=== PATIENT | male | born 1960 | race Caucasian/White ===

== ENCOUNTER 2018-04-10 17:39 | Observation (INO) | payer OTHER ==
[~2018-04-10] VITALS: Ht 162.6 cm; Wt 68.0 kg
[~2018-04-10 17:39] MED LIST: ACETAMINOPHEN325 M1 PO; ACULAR LS5 ML OPHTHALMIC; ADVANCED EYE H1 EAC1 PO; ASPIR 8181 MG PO; ASPIRIN325 PO; AUGMENTIN 875875 MG PO; CARISOPRODOL 3350 MG PO; CIPROFLOXACIN500 M1 PO; CLONAZEPAM 0.50.5 M1 PO; DICLOFENAC SODI75 MG PO; FISH OIL 1,001000 M2 PO; FLEXERIL PO; HYDROCODONE-AP1 EA11; HYDROCODONE-AP1 EAC6 PO; IBUPROFEN200 M2; KEFLEX500 MG PO; LOVASTATIN 20 M20 MG PO; MAGOX 400400 MG PO; MOBIC7.5 M1 PO; MOBIC7.5 MG PO; NAPROSYN500 MG PO; NOHOMEMEDICATIONS; NORCO 5-325 TA1 EACH PO; OMEPRAZOLE20 M2 PO; ONDANSETRON HCL4 M2 PO; PAXIL10 MG PO; PAXIL40 MG PO; POTASSIUM20 PO; PREDNISONE 20 M20 MG PO; PROSCAR 5MG TABL5 M1 PO; PROTONIX40 M2 PO; PROZAC 20 MG20 MG; RAPAFLO8 MG PO; REQUIP0.5 MG PO; SENTRY TABLET1 EACH PO; SEROQUEL 50 MG50 MG PO; SERTRALINE HCL100 MG; TESSALON PERLE100 MG PO; TOPAMAX50 MG PO; TRAMADOL 50 MG50 MG PO; ULTRACET TABLET1 TAB PO; ZOFRAN ODT4 MG PO
[2018-04-10 17:48] VITALS: BP 110/63
[2018-04-10] MEDS ORDERED: CRESTOR40 MG PO (17:55)
[2018-04-10] MEDS ORDERED: ASPIR 8181 MG PO (17:55)
[2018-04-10] MEDS ORDERED: AMANTADINE100 M1 PO (17:56)
[2018-04-10 18:39] LABS: ABSOLUTE LYMPHOCYTES 1.7 thou/uL (0.8-5.3); ABSOLUTE MONOCYTES 0.6 thou/uL (0.0-1.2); BASOPHILS 0.4 %; EOSINOPHILS 0.9 %; HEMATOCRIT 42.1 % (42.0-52.0); LYMPHOCYTES 31.1 %; MCHC 33.3 g/dL (28.0-37.0); MCV 93.1 fL (80.0-100.0); MONOCYTES 11.7 %; MPV 7.9 fl. (7.2-11.1); NUCLEATED RBCS 0 /100WBC; PLATELET COUNT* 199 thou/uL (150-400); POLYS 55.9 %; RBC 4.53 mil/uL (4.50-6.00); RDW-CV 13.5 % (10.5-14.5); WBC 5.4 thou/uL (4.0-11.0)
[2018-04-10 18:49] LABS: ANION GAP 12 mmol/L (7-16); BUN 10 mg/dL (7-18); CALCIUM 8.5 mg/dL (8.5-10.1); CHLORIDE 106 mmol/L (98-107); CO2 21 mmol/L (21-32); CREATININE 0.8 mg/dL (0.6-1.3); GLUCOSE 108 mg/dL (70-99); POTASSIUM 3.5 mmol/L (3.5-5.1); SODIUM 139 mmol/L (136-145)
[2018-04-10 19:00] LABS: ALBUMIN 3.5 g/dL (3.4-5.0); ALKALINE PHOSPHATASE 68 U/L (46-116); NT-PRO BRAIN NAT PEPTIDE 25 pg/mL (<300); SGOT 18 U/L (15-37); SGPT 41 U/L (30-65); TOTAL BILIRUBIN 0.2 mg/dL (<0.1-1.0); TROPONIN-I LEVEL <0.06 ng/mL (<0.06)
[2018-04-10 20:34] LABS: URINE BILIRUBIN NEGATIVE (Negative); URINE BLOOD TRACE (Negative); URINE CLARITY CLEAR; URINE COLOR YELLOW; URINE GLUCOSE-RANDOM NEGATIVE (Negative); URINE KETONES NEGATIVE (Negative); URINE LEUKOCYTES-REFLEX NEGATIVE (Negative); URINE NITRITE-REFLEX NEGATIVE (Negative); URINE PROTEIN NEGATIVE (Negative); URINE SPECIFIC GRAVITY <= 1.005 (1.005-1.030); URINE UROBILINOGEN 0.2 E.U./dl (0.2-1.0)
[2018-04-10 22:44] VITALS: BP 96/54
[2018-04-11 00:08] VITALS: BP 111/57
[2018-04-11 04:00] VITALS: BP 97/57
[2018-04-11 08:00] VITALS: BP 99/55
[2018-04-11] MEDS ORDERED: ADULT ASPIRIN81 MG PO (10:57)
[2018-04-11 12:00] VITALS: BP 100/59; BP 84/47
--- NOTE | 2018-04-11 13:46 | EKG ---
[place] [address] ELECTROCARDIOGRAM REPORT Name: ANA CRISTINA MC Room: [address] M.R.#: [id number] Admission: 04/10/18 Attend Phys: Cassandra Tolliver Discharge: Date of : 58 Report #: [id number] THIS REPORT FOR: //name// [facility] ED Test Date: 2018-04-10 Test Time: 18:05:24 Pat Name: ANA CRISTINA MC Department: Room: [facility] Gender: M Firearms Specialist: GIOVANI : 1960 Requested By: Emely Linares Order Number: [id number] MD: Ray Shay Measurements Intervals [place] Rate: 56 P: 40 NM: 175 QRS: 57 QRSD: 90 T: 28 QT: 405 QTc: 391 Interpretive Statements Sinus rhythm Compared to ECG 04/23/2017 01:14:05 No significant changes Electronically Signed On 04-11-2018 13:46:37 LEGAL MANAGER by Ray Shay [email or web address] <ELECTRONICALLY SIGNED> By: Ray Shay MD, [facility] 04/11/18 1346 1805 04 Ray Shay MD, FAC /EPI
[2018-04-11 16:00] VITALS: BP 84/54
[2018-04-11 20:00] VITALS: BP 108/73
[2018-04-12] VITALS (7 sets, daily range): BP systolic 91–103; BP diastolic 48–60
--- NOTE | 2018-04-12 07:29 | 2DMMODE ---
[place] [address] 2 D/M-MODE ECHOCARDIOGRAM Name: ANA CRISTINA MC Room: [address] Ava Flowers#: [id number] Admission: 04/10/18 Attend Phys: Matilde Villar Discharge: Date of : 58 Date of Service: 04/12/18 0729 Report #: [id number] THIS REPORT FOR: //name// APPROVED REPORT Study performed: 04/11/2018 17:14:54 EXAM: Comprehensive 2D, Doppler, and color-flow Echocardiogram BSA: 1.73 HR: 53 bpm BP: 99/55 mmHg Other Information Study Quality: Fair Technically limited study due to . Indications Hypotension Arrhythmia 2D Dimensions IVSd: 9.19 (7-11mm) LVOT Diam: 21.87 (18-24mm) LVDd: 43.17 mm PWd: 9.19 (7-11mm) Ascending Ao: 29.22 (22-36mm) LVDs: 31.07 (25-40mm) Aortic Root: 27.27 mm Volumes Left Atrial Volume (Systole) LA ESV Index: 32.20 mL/m2 Aortic Valve AoV Peak Charlie.: 0.85 m/s AO Peak Gr.: 2.90 mmHg LVOT Max P.35 mmHg AO Mean Gr.: 1.65 mmHg LVOT Mean P.66 mmHg LVOT Max V: 0.58 m/s AO V2 VTI: 17.60 cm LVOT Mean V: 0.38 m/s BRANDON (VTI): 2.84 cm2 LVOT V1 VTI: 13.29 cm Mitral Valve E/A Ratio: 1.68 MV Decel. Time: 196.83 ms MV E Max Charlie.: 0.66 m/[place] [address] 2 D/M-MODE ECHOCARDIOGRAM Name: ANA CRISTINA MC Room: [address]R.#: [id number] Admission: 04/10/18 Attend Phys: Matilde Villar Discharge: Date of : 58 Date of Service: 04/12/18 0729 Report #: [id number] MV PHT: 57.08 ms MVA (PHT): 3.85 cm2 TDI E/Lateral E': 5.08 E/Medial E': 8.25 Medial E' Charlie.: 0.08 m/s Lateral E' Charlie.: 0.13 m/s Pulmonary Valve PV Peak Charlie.: 0.78 m/s PV Peak Gr.: 2.43 mmHg Tricuspid Valve RAP Estimate: 5.00 mmHg TR Peak Gr.: 17.07 mmHg RVSP: 22.07 mmHg PA Pressure: 22.07 mmHg Left Ventricle The left ventricle is normal size. There is normal left ventricular wall thickness. Left ventricular systolic function is normal. LVEF is 50-55%. The left ventricular diastolic function is normal. Right Ventricle Right ventricle is dilated. The right ventricular systolic function is normal. Atria The left atrium size is normal. The right atrium size is normal. Aortic Valve The Aortic valve is sclerotic. No aortic regurgitation is present. There is no aortic valvular stenosis. Mitral Valve The mitral valve is normal in structure. Trace mitral regurgitation. No evidence of mitral valve stenosis. Tricuspid Valve The tricuspid valve is normal in structure. Trace to mild tricuspid regurgitation. Pulmonic Valve The pulmonary valve is normal in structure. Trace pulmonic regurgitation. [place] [address] 2 D/M-MODE ECHOCARDIOGRAM Name: ANA CRISTINA MC Room: [address] Ava Flowers#: [id number] Admission: 04/10/18 Attend Phys: Matilde Villar Discharge: Date of : 58 Date of Service: 04/12/18 0729 Report #: [id number] The aortic root is normal in size. IVC is normal in size and collapses >50% with inspiration. Pericardium There is no pericardial effusion. <Conclusion> The left ventricle is normal size. There is normal left ventricular wall thickness. Left ventricular systolic function is normal. LVEF is 50-55%. The left ventricular diastolic function is normal. The Aortic valve is sclerotic. Trace mitral regurgitation. Trace to mild tricuspid regurgitation. IVC is normal in size and collapses >50% with inspiration. Right ventricle is dilated. <ELECTRONICALLY SIGNED> By: Shen Charles MD, FACC 04/12/18728 8 8 Shen Charles MD, FACC /INF
== END 2018-04-12 12:20 | disposition home or self-care (01) ==
LOC: M.ERS 17:39 → M.TBA-ER 21:08 → M.3W 21:08
PROVIDERS: Nurse Practitioner Family; ADMIT Internal Medicine
DX: T42.8X5A Adverse effect of antiparkinsonism drugs and other central muscle-tone depressants, initial encounter (principal); I95.1 Orthostatic hypotension; R00.1 Bradycardia, unspecified; N50.812 Left testicular pain; I86.1 Scrotal varices; G31.83 Neurocognitive disorder with Lewy bodies; G20 Parkinson's disease; R31.29 Other microscopic hematuria; I87.8 Other specified disorders of veins; H35.30 Unspecified macular degeneration; R51 Headache; R19.7 Diarrhea, unspecified; N50.3 Cyst of epididymis; N43.3 Hydrocele, unspecified; Y92.89 Other specified places as the place of occurrence of the external cause; Z87.891 Personal history of nicotine dependence; Z79.82 Long term (current) use of aspirin; Z79.899 Other long term (current) drug therapy

== ENCOUNTER 2018-05-05 20:35 | Emergency (ER) | payer OTHER ==
[~2018-05-05] VITALS: Ht 162.6 cm; Wt 65.8 kg
[~2018-05-05 20:35] MED LIST changes: +ADULT ASPIRIN81 MG PO; +AMANTADINE100 M1 PO; +CRESTOR40 MG PO
[2018-05-05 20:56] LABS: URINE BILIRUBIN NEGATIVE (Negative); URINE BLOOD NEGATIVE (Negative); URINE CLARITY CLEAR; URINE COLOR YELLOW; URINE GLUCOSE-RANDOM NEGATIVE (Negative); URINE KETONES NEGATIVE (Negative); URINE LEUKOCYTES-REFLEX NEGATIVE (Negative); URINE NITRITE-REFLEX NEGATIVE (Negative); URINE PROTEIN NEGATIVE (Negative); URINE UROBILINOGEN 0.2 E.U./dl (0.2-1.0)
[2018-05-05 21:06] LABS: ABSOLUTE EOSINOPHILS 0.1 thou/uL (0.0-0.7); ABSOLUTE LYMPHOCYTES 2.1 thou/uL (0.8-5.3); ABSOLUTE MONOCYTES 0.6 thou/uL (0.0-1.2); ABSOLUTE NEUTROPHILS 2.9 thou/uL (1.6-8.1); BASOPHILS 0.8 %; EOSINOPHILS 1.5 %; HEMOGLOBIN 14.2 gm/dL (14.0-18.0); LYMPHOCYTES 36.7 %; MCH 31.3 pg (26.0-34.0); MCHC 33.9 g/dL (28.0-37.0); MCV 92.4 fL (80.0-100.0); MONOCYTES 10.5 %; MPV 7.5 fl. (7.2-11.1); NUCLEATED RBCS 0 /100WBC; PLATELET COUNT* 203 thou/uL (150-400); POLYS 50.5 %; RBC 4.54 mil/uL (4.50-6.00); RDW-CV 13.5 % (10.5-14.5); WBC 5.8 thou/uL (4.0-11.0)
[2018-05-05 21:14] LABS: CALCIUM 8.8 mg/dL (8.5-10.1); CREATININE 0.9 mg/dL (0.6-1.3); POTASSIUM 3.5 mmol/L (3.5-5.1)
[2018-05-05 21:18] LABS: ALBUMIN 3.7 g/dL (3.4-5.0); TOTAL BILIRUBIN 0.2 mg/dL (<0.1-1.0); TOTAL PROTEIN 7.1 g/dL (6.4-8.2)
[2018-05-05] MEDS ORDERED: BENTYL 20 MG TA20 M1 PO (22:38)
[2018-05-05 23:00] VITALS: BP 92/56
== END 2018-05-05 23:01 | disposition home or self-care (01) ==
LOC: M.ERS 20:35
PROVIDERS: Nurse Practitioner Family
DX: R10.33 Periumbilical pain (principal); G20 Parkinson's disease; I95.9 Hypotension, unspecified; F03.90 Unspecified dementia, unspecified severity, without behavioral disturbance, psychotic disturbance, mood disturbance, and anxiety; Z88.6 Allergy status to analgesic agent

== ENCOUNTER 2018-05-07 12:03 | Emergency (ER) | payer OTHER ==
[~2018-05-07] VITALS: Ht 162.6 cm; Wt 68.0 kg
[~2018-05-07 12:03] MED LIST changes: +BENTYL 20 MG TA20 M1 PO
[2018-05-07] MEDS ORDERED: ZANTAC 150MG T150 MG PO (12:25)
[2018-05-07] MEDS ORDERED: PAXIL10 MG PO (12:26)
[2018-05-07 12:38] LABS: ABSOLUTE LYMPHOCYTES 1.7 thou/uL (0.8-5.3); ABSOLUTE MONOCYTES 0.7 thou/uL (0.0-1.2); ABSOLUTE NEUTROPHILS 3.7 thou/uL (1.6-8.1); BASOPHILS 0.5 %; EOSINOPHILS 0.3 %; HEMATOCRIT 40.8 % (42.0-52.0); HEMOGLOBIN 13.7 gm/dL (14.0-18.0); LYMPHOCYTES 28.1 %; MCH 31.1 pg (26.0-34.0); MCHC 33.7 g/dL (28.0-37.0); MCV 92.3 fL (80.0-100.0); MONOCYTES 10.9 %; MPV 7.8 fl. (7.2-11.1); NUCLEATED RBCS 0 /100WBC; PLATELET COUNT* 197 thou/uL (150-400); POLYS 60.2 %; RBC 4.42 mil/uL (4.50-6.00); RDW-CV 13.2 % (10.5-14.5); WBC 6.1 thou/uL (4.0-11.0)
[2018-05-07 12:51] LABS: CALCIUM 8.8 mg/dL (8.5-10.1); CREATININE 0.8 mg/dL (0.6-1.3); POTASSIUM 4.1 mmol/L (3.5-5.1)
[2018-05-07 13:00] LABS: ALBUMIN 3.7 g/dL (3.4-5.0); TOTAL BILIRUBIN 0.2 mg/dL (<0.1-1.0); TOTAL PROTEIN 7.1 g/dL (6.4-8.2)
[2018-05-07 13:59] LABS: URINE BILIRUBIN NEGATIVE (Negative); URINE BLOOD NEGATIVE (Negative); URINE CLARITY CLEAR; URINE COLOR YELLOW; URINE GLUCOSE-RANDOM NEGATIVE (Negative); URINE KETONES NEGATIVE (Negative); URINE LEUKOCYTES-REFLEX NEGATIVE (Negative); URINE NITRITE-REFLEX NEGATIVE (Negative); URINE PROTEIN NEGATIVE (Negative); URINE UROBILINOGEN 0.2 E.U./dl (0.2-1.0)
[2018-05-07] MEDS ORDERED: PHENERGAN 25 MG25 M1 PO (15:31)
[2018-05-07 16:03] VITALS: BP 92/52
--- NOTE | 2018-05-07 16:27 | EKG ---
[place] [address] ELECTROCARDIOGRAM REPORT Name: ANA CRISTINA MC JR Room: [facility]#: [id number] Admission: 05/07/18 Attend Phys: Discharge: 05/07/18 Date of : 58 Report #: [id number] THIS REPORT FOR: //name// ED Test Date: 2018-05-07 Test Time: 12:11:36 Pat Name: ANA CRISTNIA MC Department: Room: Gender: M Nursing Unit Manager: Fani BENNETT : 1960 Requested By: Marilynn Mercer Order Number: [id number] MD: Shen Charles Measurements Intervals [place] Rate: 58 P: 37 AL: 156 QRS: 58 QRSD: 91 T: 48 QT: 394 QTc: 387 Interpretive Statements Sinus rhythm Minimal ST elevation, inferior leads Compared to ECG 04/10/2018 18:05:24 ST (T wave) deviation now present Electronically Signed On 05-07-2018 16:27:18 DAIRY FEED SALES CONSULTANT by Shen Charles [email or web address] <ELECTRONICALLY SIGNED> By: Shen Charles MD, [facility] 05/07/18 1627 1211 10 Shen Charles MD, FACC /EPI
== END 2018-05-07 16:04 | disposition home or self-care (01) ==
LOC: M.ERS 12:03
PROVIDERS: Personal Emergency Response Attendant
DX: I95.9 Hypotension, unspecified (principal); R10.30 Lower abdominal pain, unspecified; G20 Parkinson's disease; F03.90 Unspecified dementia, unspecified severity, without behavioral disturbance, psychotic disturbance, mood disturbance, and anxiety; Z88.6 Allergy status to analgesic agent

== ENCOUNTER 2018-05-17 21:18 | Inpatient (IN) | payer OTHER ==
[~2018-05-17] VITALS: Ht 162.6 cm; Wt 69.9 kg
[~2018-05-17 21:18] MED LIST changes: +CLONAZEPAM 1 MG1 M1 PO; +PHENERGAN 25 MG25 M1 PO; +ZANTAC 150MG T150 MG PO
[2018-05-17 21:30] VITALS: BP 95/50
--- NOTE | 2018-05-17 21:54 | NUR ---
PT PRESENTS TO ED REPORTING LOW BLOOD PRESSURE AND HEADACHE.
[2018-05-17 22:35] LABS: BE -0.7 mmol/L (-2 to +3); PCO2 30.8 mmHg (35.0-45.0); PO2 115.6 mmHg (75.0-100.0); pH 7.472 (7.340-7.450)
[2018-05-17 22:52] LABS: ABSOLUTE LYMPHOCYTES 1.8 thou/uL (0.8-5.3); ABSOLUTE MONOCYTES 1.1 thou/uL (0.0-1.2); ABSOLUTE NEUTROPHILS 14.6 thou/uL (1.6-8.1); BASOPHILS 0.2 %; EOSINOPHILS 0.2 %; HEMATOCRIT 36.6 % (42.0-52.0); HEMOGLOBIN 12.4 gm/dL (14.0-18.0); LYMPHOCYTES 10.3 %; MCH 31.2 pg (26.0-34.0); MCHC 33.9 g/dL (28.0-37.0); MONOCYTES 6.2 %; MPV 7.8 fl. (7.2-11.1); NUCLEATED RBCS 0 /100WBC; PLATELET COUNT* 166 thou/uL (150-400); POLYS 83.1 %; RBC 3.98 mil/uL (4.50-6.00); WBC 17.5 thou/uL (4.0-11.0)
[2018-05-17 23:06] LABS: CALCIUM 8.4 mg/dL (8.5-10.1); POTASSIUM 3.1 mmol/L (3.5-5.1)
[2018-05-17 23:10] LABS: ALBUMIN 3.1 g/dL (3.4-5.0); MAGNESIUM 1.5 mg/dL (1.8-2.4); TOTAL BILIRUBIN 0.4 mg/dL (<0.1-1.0); TOTAL PROTEIN 6.5 g/dL (6.4-8.2)
--- NOTE | 2018-05-17 23:42 | NUR ---
PT REPORTS HEADACHE RELIEVED AFTER RECIEVING IV TORADOL, FENTANYL AND ZOFRAN.
[2018-05-18] VITALS (10 sets, daily range): BP systolic 77–125; BP diastolic 34–79
--- NOTE | 2018-05-18 00:08 | NUR ---
PT GIVEN 4 BABY ASPIRIN AND 50 MCG IV FENTANYL FOR CHEST TIGHTNESS.
[2018-05-18 00:18] LABS: INR 1.2; PROTIME 12.3 Seconds (9.20-11.50)
[2018-05-18 00:23] LABS: URINE BILIRUBIN NEGATIVE (Negative); URINE BLOOD NEGATIVE (Negative); URINE CLARITY CLEAR; URINE COLOR YELLOW; URINE GLUCOSE-RANDOM NEGATIVE (Negative); URINE KETONES NEGATIVE (Negative); URINE LEUKOCYTES-REFLEX NEGATIVE (Negative); URINE NITRITE-REFLEX NEGATIVE (Negative); URINE PROTEIN NEGATIVE (Negative); URINE SPECIFIC GRAVITY <= 1.005 (1.005-1.030); URINE UROBILINOGEN 0.2 E.U./dl (0.2-1.0)
[2018-05-18 00:50] LABS: INFLUENZA A ANTIGEN None Detected (None Detect); INFLUENZA B ANTIGEN None Detected (None Detect)
--- NOTE | 2018-05-18 07:54 | NUR ---
RECEIVED REPORT AND ASSUMED CARE AT 0200. PT TRANSPORTED FROM ED TO ROOM 206.BP SLIGHTLY LOW, OTHERWISE VSS. CARDIAC MONITORING IN PLACE. ASSESSMENT COMPLETED CHARTED, ADMISSION COMPLETED BY NURSING. PT ORIENTATED TO ROOM, CALL LIGHT, FALL POLICY. PT UP WITH ASSIST IN ROOM, ON 2L NC. HOURLY ROUNDING COMPLETED AND ALL NEEDS MET. NURSING WILL CONTINUE TO MONITOR
[2018-05-18 09:47] LABS: CALCIUM 7.6 mg/dL (8.5-10.1); CREATININE 0.9 mg/dL (0.6-1.3); MAGNESIUM 1.7 mg/dL (1.8-2.4); POTASSIUM 3.8 mmol/L (3.5-5.1)
--- NOTE | 2018-05-18 12:13 | EKG ---
[place] [address] ELECTROCARDIOGRAM REPORT Name: ANA CRISTINA MC JR Room: [address] ADM IN M.R.#: [id number] Admission: 05/18/18 Attend Phys: Jose Read Discharge: Date of : 58 Report #: [id number] THIS REPORT FOR: //name// [facility] ED Test Date: 2018-05-17 Test Time: 21:47:08 Pat Name: ANA CRISTINA MC Department: Room: [facility] Gender: M Human Services Supervisor: : 1960 Requested By: Marilynn Mercer Order Number: [id number] MD: Zion Oliveros Measurements Intervals [place] Rate: 73 P: 37 CO: 161 QRS: 34 QRSD: 98 T: 20 QT: 379 QTc: 418 Interpretive Statements Sinus rhythm Baseline wander in lead(s) V2,V3 Compared to ECG 05/07/2018 12:11:36 ST (T wave) deviation no longer present Electronically Signed On 05-18-2018 12:13:30 GOAT HERDER by Zion Oliveros [email or web address] <ELECTRONICALLY SIGNED> By: Zion Oliveros MD, FACC 05/18/18 1213 46 Zion Oliveros MD, [facility] /EPI
[2018-05-19] VITALS (7 sets, daily range): BP systolic 91–121; BP diastolic 47–67
[2018-05-19 05:01] LABS: HEMOGLOBIN 11.5 gm/dL (14.0-18.0); MCH 31.2 pg (26.0-34.0); MCHC 33.9 g/dL (28.0-37.0); MCV 91.9 fL (80.0-100.0); MPV 8.1 fl. (7.2-11.1); RBC 3.7 mil/uL (4.50-6.00); RDW-CV 13.2 % (10.5-14.5); WBC 16.1 thou/uL (4.0-11.0)
[2018-05-19 05:13] LABS: CALCIUM 7.9 mg/dL (8.5-10.1); CREATININE 0.9 mg/dL (0.6-1.3); MAGNESIUM 1.9 mg/dL (1.8-2.4); POTASSIUM 3.5 mmol/L (3.5-5.1)
--- NOTE | 2018-05-19 05:31 | NUR ---
RECEIVED REPORT AND ASSUMED CARE AT 1900. VSS. CARDIAC MONITORING IN PLACE. ASSESSMENT COMPLETED CHARTED. PT UP WITH ASSIST WITH WALKER TO BATHROOM. DISCUSSED PLAN OF CARE WITH PT, VERBALIZED UNDERSTANDING. HOURLY ROUNDING COMPLETED AND ALL NEEDS MET. WILL CONTINUE TO MONITOR FOR REMAINDER OF THE SHIFT
--- NOTE | 2018-05-19 17:18 | NUR ---
PT RESTING IN BED THROUGHOUT SHIFT. PT REPORTS OCASSIONAL CHEST TIGHTNESS WHICH CLEARS BY COUGH. TOLERATING PO WELL. VOIDING PER URINAL. NSR ON MONITOR
[2018-05-20] VITALS (8 sets, daily range): BP systolic 95–115; BP diastolic 52–69
--- NOTE | 2018-05-20 05:10 | NUR ---
PT RESTING IN BED. CONTINUES ON RA. C/O PAIN FROM COUGHING AND RECEIVED PAIN MEDS THROUGHOUT THE SHIFT THAT HELPED RESOLVE IT. SR/SB ON MONITOR.
[2018-05-20] MEDS ORDERED: CEFDINIR300 MG PO (10:00)
[2018-05-20] MEDS ORDERED: PREDNISONE 10 M10 MG PO (10:00)
[2018-05-20] MEDS ORDERED: BENZONATATE100 MG PO (10:00)
[2018-05-20] MEDS ORDERED: AZITHROMYCIN 2250 MG PO (10:00)
[2018-05-20] MEDS ORDERED: FLORINEF ACETA0.1 MG PO (10:00)
--- NOTE | 2018-05-20 11:25 | NUR ---
ASSUMED CARE OF PT AT 0730. PT RESTING IN BED. AT BEDSIDE. PT A&0X4, FORGETFUL AT TIMES. DEMENTIA AND PARKINSONS NOTED. PT HAS FLAT AFFECT. PT TRACING SB ON THE CASING IN LINE SETTER. BLOOD PRESSURES STABLE. PT ASYMPTOMATIX. PT ON RA SAT UPPER 90'S. DENIES ANY SHORTNESS OF BREATH OR PAIN AT TIME. PT UP SBA TO BATHROOM WITH WALKER. PT GOAL FOR TODAY IS TO REMAIN FREE FROM HYPOTENSION, MONITOR HEART RATE AND DISCHARGE PLANNING. AM ASSESSMENT CHARTED. MEDICATIONS PER AUG. PT REPOSITIONS SELF WITH REMINDERS. HOURLY ROUNDING OBSERVED. BED IN LOW POSITION. CALL LIGHT WITHIN REACH. WILL CONTINUE PLAN OF CARE.
--- NOTE | 2018-05-20 12:55 | NUR ---
Pt is A&O. Resides at home with his . Pt states that completes all ADLs, and assists him with IADLs. Pt stated that his works during the day, but stated that his mother in law stays with him during the day. Pt uses a walker for mobility, Pt also has a shower chair. Pt is current with [place] internet media planner to fax resumption orders to . No hx of snf. Pt discharging to home today.
--- NOTE | 2018-05-20 12:57 | NUR ---
MUSIC LIBRARY ASSISTANT SPOKE TO INTAKE WITH [facility] TO INFORM OF THE PATIENT'S DISCHARGE AND FAXED ORDERS TO RESUME HH AT D/C. [facility] INTAKE INFORMS THAT THEIR 'COMPUTERS ARE CURRENTLY DOWN, BUT WILL REVIEW THE ORDERS AND CONTACT THE PATIENT SOON POSSIBLE'. CM WILL REMAIN AVIALABLE TO ASSIST AND FOLLOW NEEDED.
--- NOTE | 2018-05-20 13:50 | NUR ---
DISCHARGE ORDERS RECEIVED. DISCHARGE INSTRUCTIONS, CARE NOTES, SCRIPTS AND FOLLOW UP APPTS GIVEN TO PT. PT COMMUNICATES UNDERSTANDING OF DISCHARGE TEACHING. IV AND WINDLACE MACHINE OPERATOR REMOVED. PT DISCHARGED WITH ALL BELONGINGS AND PAPERWORK VIA WHEELCHAIR WITH NURSING STAFF TO SPOUSE OWN PERSONAL VEHICLE.
== END 2018-05-20 14:00 | disposition home health service (06) | DRG 871 ==
LOC: M.ERS 21:18 → M.TBA-ER 05-18 00:41 → M.2W 05-18 00:41
PROVIDERS: Internal Medicine; Personal Emergency Response Attendant; ADMIT Internal Medicine
DX: A41.9 Sepsis, unspecified organism (principal); J15.9 Unspecified bacterial pneumonia; E44.1 Mild protein-calorie malnutrition; J40 Bronchitis, not specified as acute or chronic; G20 Parkinson's disease; F02.80 Dementia in other diseases classified elsewhere, unspecified severity, without behavioral disturbance, psychotic disturbance, mood disturbance, and anxiety; F32.9 Major depressive disorder, single episode, unspecified; F41.1 Generalized anxiety disorder; G43.909 Migraine, unspecified, not intractable, without status migrainosus; I95.2 Hypotension due to drugs; M94.0 Chondrocostal junction syndrome [Tietze]; E86.9 Volume depletion, unspecified; Z68.26 Body mass index [BMI] 26.0-26.9, adult; Z88.6 Allergy status to analgesic agent; Z83.3 Family history of diabetes mellitus; Z82.49 Family history of ischemic heart disease and other diseases of the circulatory system; Z81.8 Family history of other mental and behavioral disorders; Z79.899 Other long term (current) drug therapy

== ENCOUNTER 2018-06-18 12:28 | Emergency (ER) | payer OTHER ==
[~2018-06-18] VITALS: Ht 170.2 cm; Wt 64.0 kg
[~2018-06-18 12:28] MED LIST changes: +AZITHROMYCIN 2250 MG PO; +BENZONATATE100 MG PO; +CEFDINIR300 MG PO; +FLORINEF ACETA0.1 MG PO; +PREDNISONE 10 M10 MG PO
[2018-06-18 12:51] LABS: ABSOLUTE EOSINOPHILS 0.1 thou/uL (0.0-0.7); ABSOLUTE LYMPHOCYTES 1.9 thou/uL (0.8-5.3); ABSOLUTE MONOCYTES 0.6 thou/uL (0.0-1.2); ABSOLUTE NEUTROPHILS 3.4 thou/uL (1.6-8.1); BASOPHILS 0.5 %; EOSINOPHILS 1.2 %; HEMATOCRIT 38.6 % (42.0-52.0); HEMOGLOBIN 13.1 gm/dL (14.0-18.0); LYMPHOCYTES 31.6 %; MCH 31.3 pg (26.0-34.0); MONOCYTES 10.4 %; MPV 7.4 fl. (7.2-11.1); NUCLEATED RBCS 0 /100WBC; PLATELET COUNT* 234 thou/uL (150-400); POLYS 56.3 %; RDW-CV 13.7 % (10.5-14.5)
[2018-06-18 13:00] LABS: APTT 25.7 Seconds (25.0-31.3); PROTIME 10.4 Seconds (9.20-11.50)
[2018-06-18 13:02] LABS: ANION GAP 11 mmol/L (7-16); BUN 9 mg/dL (7-18); CALCIUM 8.6 mg/dL (8.5-10.1); CHLORIDE 107 mmol/L (98-107); CO2 25 mmol/L (21-32); CREATININE 0.7 mg/dL (0.6-1.3); GLUCOSE 103 mg/dL (70-99); POTASSIUM 3.3 mmol/L (3.5-5.1); SODIUM 143 mmol/L (136-145)
[2018-06-18 13:16] LABS: ALBUMIN 3.4 g/dL (3.4-5.0); ALKALINE PHOSPHATASE 64 U/L (46-116); CK-MB MASS 0.6 ng/mL (<0.5-3.6); NT-PRO BRAIN NAT PEPTIDE 173 pg/mL (<300); SGOT 26 U/L (15-37); SGPT 55 U/L (30-65); TOTAL BILIRUBIN 0.3 mg/dL (<0.1-1.0); TOTAL PROTEIN 6.8 g/dL (6.4-8.2); TROPONIN-I LEVEL <0.06 ng/mL (<0.06)
[2018-06-18 14:37] VITALS: BP 113/72
--- NOTE | 2018-06-18 16:31 | EKG ---
[place] [address] ELECTROCARDIOGRAM REPORT Name: ANA CRISTINA MC JR Room: [facility]#: [id number] Admission: 06/18/18 Attend Phys: Discharge: 06/18/18 Date of : 58 Report #: [id number] THIS REPORT FOR: //name// [facility] ED Test Date: 2018-06-18 Test Time: 13:19:51 Pat Name: ANA CRISTINA MC Department: Room: Gender: M Technical Business Systems Analyst: LEONA : 1960 Requested By: Wang Villasenor Order Number: [id number] MD: Pankaj Grissom Measurements Intervals [place] Rate: 64 P: 14 WV: 146 QRS: 40 QRSD: 92 T: 22 QT: 412 QTc: 425 Interpretive Statements Sinus rhythm Artifact in lead(s) I,V2 and baseline wander in lead(s) V2 Compared to ECG 05/17/2018 21:47:08 No significant changes Electronically Signed On 06-18-2018 16:30:59 AUTOMATION QTP TESTER by Pankaj Grissom [email or web address] <ELECTRONICALLY SIGNED> By: Pankaj Grissom MD, [facility] 06/18/18 1630 1319 1319 Pankaj Grissom MD, [facility] /EPI
== END 2018-06-18 14:37 | disposition home or self-care (01) ==
LOC: M.ERS 12:28
PROVIDERS: Family Medicine
DX: R41.82 Altered mental status, unspecified (principal); F03.90 Unspecified dementia, unspecified severity, without behavioral disturbance, psychotic disturbance, mood disturbance, and anxiety; G20 Parkinson's disease; I95.9 Hypotension, unspecified; G43.909 Migraine, unspecified, not intractable, without status migrainosus; Z88.5 Allergy status to narcotic agent

== ENCOUNTER → 2018-07-12 | Outpatient (CLI) | payer OTHER | LOC: M.RAD 16:25 | DX: M54.5 Low back pain (principal); M25.78 Osteophyte, vertebrae; G89.29 Other chronic pain ==

== ENCOUNTER 2018-08-09 09:02 | Emergency (ER) | payer OTHER ==
[~2018-08-09] VITALS: Ht 162.6 cm; Wt 65.8 kg
[2018-08-09 10:22] LABS: HEMATOCRIT 38.1 % (42.0-52.0); HEMOGLOBIN 13.1 gm/dL (14.0-18.0); MCH 31.3 pg (26.0-34.0); MCHC 34.3 g/dL (28.0-37.0); MPV 6.9 fl. (7.2-11.1); RBC 4.18 mil/uL (4.50-6.00); RDW-CV 14.1 % (10.5-14.5); WBC 4.8 thou/uL (4.0-11.0)
[2018-08-09 10:35] LABS: ALBUMIN 3.5 g/dL (3.4-5.0); CALCIUM 8.4 mg/dL (8.5-10.1); CREATININE 0.8 mg/dL (0.6-1.3); POTASSIUM 3.4 mmol/L (3.5-5.1); TOTAL BILIRUBIN 0.1 mg/dL (<0.1-1.0); TOTAL PROTEIN 6.9 g/dL (6.4-8.2)
[2018-08-09] MEDS ORDERED: HYDROCODONE-AP1 EAC6 PO (11:25)
[2018-08-09 11:33] VITALS: BP 135/68
== END 2018-08-09 11:35 | disposition home or self-care (01) ==
LOC: M.ERS 09:02
PROVIDERS: Emergency Medicine Emergency Medical Services
DX: G43.909 Migraine, unspecified, not intractable, without status migrainosus (principal); M79.18 Myalgia, other site; M79.651 Pain in right thigh; M79.652 Pain in left thigh; G20 Parkinson's disease; H35.30 Unspecified macular degeneration; I95.9 Hypotension, unspecified; Z88.1 Allergy status to other antibiotic agents; Z88.5 Allergy status to narcotic agent; Z88.8 Allergy status to other drugs, medicaments and biological substances

== ENCOUNTER 2018-08-15 18:32 | Inpatient (IN) | payer OTHER ==
[~2018-08-15] VITALS: Ht 162.6 cm; Wt 68.9 kg
[2018-08-15 18:48] VITALS: BP 129/73
[2018-08-15 20:09] LABS: INFLUENZA A ANTIGEN None Detected (None Detect); INFLUENZA B ANTIGEN None Detected (None Detect)
[2018-08-15 20:14] LABS: ABSOLUTE LYMPHOCYTES 1.7 thou/uL (0.8-5.3); ABSOLUTE MONOCYTES 0.6 thou/uL (0.0-1.2); BASOPHILS 0.6 %; EOSINOPHILS 0.8 %; HEMOGLOBIN 13.5 gm/dL (14.0-18.0); LYMPHOCYTES 30.8 %; MCH 31.6 pg (26.0-34.0); MCHC 34.7 g/dL (28.0-37.0); MCV 91.3 fL (80.0-100.0); MONOCYTES 11.1 %; MPV 8.2 fl. (7.2-11.1); NUCLEATED RBCS 0 /100WBC; PLATELET COUNT* 203 thou/uL (150-400); POLYS 56.7 %; RBC 4.27 mil/uL (4.50-6.00); WBC 5.4 thou/uL (4.0-11.0)
[2018-08-15 20:30] LABS: ANION GAP 11 mmol/L (7-16); BUN 10 mg/dL (7-18); CALCIUM 8.6 mg/dL (8.5-10.1); CHLORIDE 108 mmol/L (98-107); CO2 23 mmol/L (21-32); CREATININE 0.8 mg/dL (0.6-1.3); GLUCOSE 120 mg/dL (70-99); POTASSIUM 3.3 mmol/L (3.5-5.1); SODIUM 142 mmol/L (136-145); TROPONIN-I LEVEL <0.06 ng/mL (<0.06)
[2018-08-15 20:38] LABS: ALBUMIN 3.7 g/dL (3.4-5.0); ALKALINE PHOSPHATASE 71 U/L (46-116); LIPASE 73 U/L (73-393); MAGNESIUM 2.2 mg/dL (1.8-2.4); NT-PRO BRAIN NAT PEPTIDE 21 pg/mL (<300); SGOT 28 U/L (15-37); SGPT 44 U/L (30-65); TOTAL BILIRUBIN 0.1 mg/dL (<0.1-1.0); TOTAL PROTEIN 7.3 g/dL (6.4-8.2)
[2018-08-15 22:54] VITALS: BP 110/68
[2018-08-16] VITALS: BP 115/73
[2018-08-16 04:00] VITALS: BP 100/59
--- NOTE | 2018-08-16 04:35 | NUR ---
RECEIVED REPORT FROM GINNY ORTIZ. PT TRANSFERRED TO 207. PT A&OX4. VSS. ADMISSION HISTORY & PHYSICAL ASSESSMENT COMPLETED AND CHARTED. SENIOR INFORMATICA DEVELOPER IN PLACE. ORIENTED TO ROOM & CALL LIGHT. PT COMPLAINED OF RIGHT RIB & ABDOMINAL PAIN-PAIN MEDS GIVEN PER MAR. PT RESTED WELL ON BED. CALL LIGHT WITHIN REACH.
[2018-08-16 08:00] VITALS: BP 93/63
--- NOTE | 2018-08-16 10:43 | EKG ---
[place] [address] ELECTROCARDIOGRAM REPORT Name: ANA CRISTINA MC Room: [address] ADM IN M.R.#: [id number] Admission: 08/15/18 Attend Phys: Marck Du MD Discharge: Date of : 58 Report #: [id number] THIS REPORT FOR: //name// [facility] ED Test Date: 2018-08-15 Test Time: 19:24:45 Pat Name: ANA CRISTINA MC Department: Room: [facility] Gender: M Printed Products Assembler: AP : 1960 Requested By: Brennon Gonzalez Order Number: [id number] MD: Ray Shay Measurements Intervals [place] Rate: 75 P: 43 CT: 147 QRS: 53 QRSD: 94 T: 28 QT: 369 QTc: 413 Interpretive Statements Sinus rhythm Compared to ECG 06/18/2018 13:19:51 No significant changes Electronically Signed On 08-16-2018 10:42:49 CDT by Ray Shay [email or web address] <ELECTRONICALLY SIGNED> By: Ray Shay MD, [facility] 08/16/18 1042 23 23 Ray Shay MD, FACC /EPI
[2018-08-16 12:09] VITALS: BP 94/56
--- NOTE | 2018-08-16 14:52 | NUR ---
Pt is A&O. Resides at home with his , available to assist as needed and completes the cooking, cleaning and driving. Pt has a walker, wc and scooter at home. Supportive family that assists Pt when is at work. Hx of [facility]'s . No hx of SNF. Goal is home at ne. Following.
[2018-08-16 17:35] VITALS: BP 106/64
[2018-08-16 20:00] VITALS: BP 94/51
[2018-08-17] VITALS: BP 106/60
[2018-08-17 04:00] VITALS: BP 102/61
--- NOTE | 2018-08-17 04:48 | NUR ---
ASSUMED PT CARE AT APPROX 1930. PT IS AWAKE AND ORIENTED X4. NOT IN DISTRESS. DENIES CHEST PAIN. VSS ON 2L OF O2 PER NC. BRIQUETTE MOLDER IN PLACE TRACING SR. COMPLAINED OF LEFT LEG PAIN RELIEVED BY HYDROCODONE GIVEN PER AUG. COMPLAINED OF NASAL CONGESTION- DR YANG INFORMED. ADMINISTERED SALINE NASAL SPRAY ORDERED. PT WAS ABLE TO SLEEP THROUGH THE NIGHT. CALL LIGHT WITHIN REACH. HOURLY ROUNDING DONE FOR PT SAFETY.
[2018-08-17 04:53] LABS: ABSOLUTE EOSINOPHILS 0.1 thou/uL (0.0-0.7); ABSOLUTE MONOCYTES 0.5 thou/uL (0.0-1.2); ABSOLUTE NEUTROPHILS 2.2 thou/uL (1.6-8.1); BASOPHILS 0.6 %; EOSINOPHILS 1.6 %; HEMATOCRIT 37.7 % (42.0-52.0); HEMOGLOBIN 13.1 gm/dL (14.0-18.0); LYMPHOCYTES 40.8 %; MCH 31.5 pg (26.0-34.0); MCHC 34.7 g/dL (28.0-37.0); MONOCYTES 11.1 %; MPV 7.8 fl. (7.2-11.1); NUCLEATED RBCS 0 /100WBC; PLATELET COUNT* 184 thou/uL (150-400); POLYS 45.9 %; RBC 4.14 mil/uL (4.50-6.00); WBC 4.8 thou/uL (4.0-11.0)
[2018-08-17 05:45] LABS: CALCIUM 8.4 mg/dL (8.5-10.1); CREATININE 0.8 mg/dL (0.6-1.3); POTASSIUM 3.5 mmol/L (3.5-5.1)
[2018-08-17 07:45] VITALS: BP 96/47
--- NOTE | 2018-08-17 10:30 | NUR ---
ORDER TO CHECK ON DUFF OF XARELTO 15MG PO BID X 20 DAYS THEN 20MG DAILY X 30 DAYS. CM CALLED INTO PT.'S PHARMACY [facility] [address] COPAY FOR 15MG WAS $31.40 AND FOR 20MG WAS $47. ANGEL WILSON WILL CHECK WITH PT.TO MAKE SURE HE CAN AFFORD THIS AND SEE IF THERE ARE COUPONS ON UNIT TO GIVE HIM.
[2018-08-17 10:33] VITALS: BP 96/47
[2018-08-17] MEDS ORDERED: ASPIR 8181 MG PO (10:47)
[2018-08-17] MEDS ORDERED: XARELTO15 MG PO (10:51)
--- NOTE | 2018-08-17 11:19 | NUR ---
PT A/O. TELE TRACKING NSR AND ALL VSS ON ROOM AIR. DENIES CP, SOA. C/O LEG PAIN AND MEDICATED PER EMAR. PT LOOKING FORWARD TO DC LATER THIS AFTERNOON. EDUCATED ON SAFETY AND PLAN OF CARE. INSTRUCTED ON USE OF CALL LIGHT FOR ASSIST, BED ALARM ON. PT AND COMMUNICATE UNDERSTANDING OF DC INSTRUCTIONS. PLEASE SEE ASSESSMENT FOR ADDITIONAL INFORMATION. WILL CONTINUE TO MONITOR UNTIL DC.
== END 2018-08-17 13:08 | disposition home or self-care (01) | DRG 176 ==
LOC: M.ERS 18:32 → M.TBA-ER 21:58 → M.2W 21:58
PROVIDERS: Emergency Medicine; Emergency Medicine Emergency Medical Services; ADMIT Internal Medicine
DX: I26.99 Other pulmonary embolism without acute cor pulmonale (principal); R06.03 Acute respiratory distress; G31.83 Neurocognitive disorder with Lewy bodies; F02.80 Dementia in other diseases classified elsewhere, unspecified severity, without behavioral disturbance, psychotic disturbance, mood disturbance, and anxiety; H35.30 Unspecified macular degeneration; G43.909 Migraine, unspecified, not intractable, without status migrainosus; F32.9 Major depressive disorder, single episode, unspecified; F41.1 Generalized anxiety disorder; Z87.891 Personal history of nicotine dependence; Z79.82 Long term (current) use of aspirin; Z79.899 Other long term (current) drug therapy; Z88.5 Allergy status to narcotic agent; Z88.8 Allergy status to other drugs, medicaments and biological substances; Z82.49 Family history of ischemic heart disease and other diseases of the circulatory system; Z83.3 Family history of diabetes mellitus; Z82.0 Family history of epilepsy and other diseases of the nervous system

== ENCOUNTER → 2018-08-23 | Outpatient (CLI) | payer OTHER ==
[~2018-08-23] MED LIST changes: +XARELTO15 MG PO
== END ==
LOC: M.ULTRA 07:03
DX: R10.33 Periumbilical pain (principal); R11.0 Nausea

== ENCOUNTER 2018-08-28 10:37 | Emergency (ER) | payer OTHER ==
[~2018-08-28] VITALS: Ht 162.6 cm; Wt 65.8 kg
[2018-08-28 10:57] LABS: ABSOLUTE LYMPHOCYTES 1.7 thou/uL (0.8-5.3); ABSOLUTE MONOCYTES 0.5 thou/uL (0.0-1.2); ABSOLUTE NEUTROPHILS 3.2 thou/uL (1.6-8.1); BASOPHILS 0.7 %; EOSINOPHILS 0.9 %; HEMATOCRIT 40.5 % (42.0-52.0); HEMOGLOBIN 13.7 gm/dL (14.0-18.0); LYMPHOCYTES 31.1 %; MCH 31.2 pg (26.0-34.0); MCV 91.9 fL (80.0-100.0); MONOCYTES 9.1 %; MPV 7.5 fl. (7.2-11.1); NUCLEATED RBCS 0 /100WBC; PLATELET COUNT* 244 thou/uL (150-400); POLYS 58.2 %; RDW-CV 14.1 % (10.5-14.5); WBC 5.5 thou/uL (4.0-11.0)
[2018-08-28 11:08] LABS: APTT 31.2 Seconds (25.0-31.3); INR 1.1; PROTIME 11.5 Seconds (9.20-11.50)
[2018-08-28 11:15] LABS: ALBUMIN 3.8 g/dL (3.4-5.0); ALKALINE PHOSPHATASE 76 U/L (46-116); ANION GAP 12 mmol/L (7-16); BUN 10 mg/dL (7-18); CALCIUM 8.9 mg/dL (8.5-10.1); CHLORIDE 110 mmol/L (98-107); CO2 24 mmol/L (21-32); CREATININE 0.8 mg/dL (0.6-1.3); GLUCOSE 122 mg/dL (70-99); POTASSIUM 3.7 mmol/L (3.5-5.1); SGOT 24 U/L (15-37); SGPT 40 U/L (30-65); SODIUM 146 mmol/L (136-145); TOTAL BILIRUBIN 0.2 mg/dL (<0.1-1.0); TOTAL PROTEIN 7.6 g/dL (6.4-8.2); TROPONIN-I LEVEL <0.06 ng/mL (<0.06)
[2018-08-28 11:33] LABS: URINE BILIRUBIN NEGATIVE (Negative); URINE BLOOD TRACE (Negative); URINE CLARITY CLEAR; URINE COLOR YELLOW; URINE GLUCOSE-RANDOM NEGATIVE (Negative); URINE KETONES NEGATIVE (Negative); URINE LEUKOCYTES-REFLEX NEGATIVE (Negative); URINE NITRITE-REFLEX NEGATIVE (Negative); URINE PROTEIN NEGATIVE (Negative); URINE SPECIFIC GRAVITY <= 1.005 (1.005-1.030); URINE UROBILINOGEN 0.2 E.U./dl (0.2-1.0)
[2018-08-28] MEDS ORDERED: ZOFRAN ODT4 MG PO (13:20)
[2018-08-28] MEDS ORDERED: HYDROCODON-ACE1 EAC7 PO (13:20)
[2018-08-28 13:59] VITALS: BP 94/51
--- NOTE | 2018-08-28 15:41 | EKG ---
[place] [address] ELECTROCARDIOGRAM REPORT Name: ANA CRISTINA MC Room: [facility]#: [id number] Admission: 08/28/18 Attend Phys: Discharge: 08/28/18 Date of : 58 Report #: [id number] THIS REPORT FOR: //name// [facility] ED Test Date: 2018-08-28 Test Time: 10:42:32 Pat Name: ANA CRISTINA MC Department: Room: Gender: M Sat Act Instructor: : 1960 Requested By: Marilynn Mercer Order Number: [id number] MD: Ray Shay Measurements Intervals [place] Rate: 72 P: 46 NC: 146 QRS: 58 QRSD: 93 T: 50 QT: 399 QTc: 437 Interpretive Statements Sinus rhythm Probable left atrial enlargement RSR' in V1 or V2, right VCD or RVH Baseline wander in lead(s) V1 Compared to ECG 08/15/2018 19:24:45 RSR' in V1 or V2 now present Electronically Signed On 08-28-2018 15:41:46 CDT by Ray Shay [email or web address] <ELECTRONICALLY SIGNED> By: Ray Shay MD, FAC 08/28/18 1541 1042 1042 Ray Shay MD, [facility] /EPI
== END 2018-08-28 13:59 | disposition home or self-care (01) ==
LOC: M.ERS 10:37
PROVIDERS: Personal Emergency Response Attendant
DX: R07.89 Other chest pain (principal); R11.2 Nausea with vomiting, unspecified; G20 Parkinson's disease; F02.80 Dementia in other diseases classified elsewhere, unspecified severity, without behavioral disturbance, psychotic disturbance, mood disturbance, and anxiety; G43.909 Migraine, unspecified, not intractable, without status migrainosus; I95.9 Hypotension, unspecified; Z88.1 Allergy status to other antibiotic agents; Z88.5 Allergy status to narcotic agent; Z88.8 Allergy status to other drugs, medicaments and biological substances

== ENCOUNTER → 2018-10-07 | Outpatient (CLI) | payer OTHER ==
[~2018-10-07] MED LIST changes: +HYDROCODON-ACE1 EAC7 PO
== END ==
LOC: M.MRI 07:05
DX: M76.52 Patellar tendinitis, left knee (principal); Z88.8 Allergy status to other drugs, medicaments and biological substances; Z88.5 Allergy status to narcotic agent; W19.XXXA Unspecified fall, initial encounter

== ENCOUNTER 2018-12-17 15:41 | Inpatient (IN) | payer OTHER ==
[~2018-12-17] VITALS: Ht 172.7 cm; Wt 72.5 kg
[~2018-12-17 15:41] MED LIST changes: +REQUIP 1 MG TABL1 M1 PO; -XARELTO15 MG PO; +XARELTO20 MG PO
[2018-12-17 15:45] VITALS: BP 119/69
[2018-12-17 16:32] LABS: ABSOLUTE MONOCYTES 0.6 thou/uL (0.0-1.2); ABSOLUTE NEUTROPHILS 3.4 thou/uL (1.6-8.1); BASOPHILS 0.6 %; EOSINOPHILS 0.5 %; HEMATOCRIT 33.1 % (42.0-52.0); HEMOGLOBIN 11.4 gm/dL (14.0-18.0); LYMPHOCYTES 20.6 %; MCH 30.8 pg (26.0-34.0); MCHC 34.4 g/dL (28.0-37.0); MCV 89.4 fL (80.0-100.0); MONOCYTES 12.1 %; MPV 7.8 fl. (7.2-11.1); NUCLEATED RBCS 0 /100WBC; PLATELET COUNT* 211 thou/uL (150-400); POLYS 66.2 %; RDW-CV 13.7 % (10.5-14.5); WBC 5.1 thou/uL (4.0-11.0)
[2018-12-17 16:42] LABS: ANION GAP 9 mmol/L (7-16); BUN 19 mg/dL (7-18); CALCIUM 8.3 mg/dL (8.5-10.1); CHLORIDE 111 mmol/L (98-107); CO2 23 mmol/L (21-32); CREATININE 0.9 mg/dL (0.6-1.3); GLUCOSE 93 mg/dL (70-99); POTASSIUM 3.4 mmol/L (3.5-5.1); SODIUM 143 mmol/L (136-145)
[2018-12-17 16:45] LABS: INR 1.1
[2018-12-17 16:57] LABS: ALBUMIN 3.2 g/dL (3.4-5.0); ALKALINE PHOSPHATASE 62 U/L (46-116); CK-MB MASS 2.1 ng/mL (<0.5-3.6); LIPASE 56 U/L (73-393); MAGNESIUM 1.8 mg/dL (1.8-2.4); NT-PRO BRAIN NAT PEPTIDE 89 pg/mL (<300); SGOT 22 U/L (15-37); SGPT 32 U/L (30-65); TOTAL BILIRUBIN 0.2 mg/dL (<0.1-1.0); TOTAL PROTEIN 6.2 g/dL (6.4-8.2); TROPONIN-I LEVEL <0.06 ng/mL (<0.06)
[2018-12-17 20:45] VITALS: BP 118/63
[2018-12-18] VITALS: BP 89/54
[2018-12-18 03:53] VITALS: BP 97/60
[2018-12-18 05:26] LABS: ABSOLUTE EOSINOPHILS 0.1 thou/uL (0.0-0.7); ABSOLUTE LYMPHOCYTES 1.9 thou/uL (0.8-5.3); ABSOLUTE MONOCYTES 0.5 thou/uL (0.0-1.2); ABSOLUTE NEUTROPHILS 2.2 thou/uL (1.6-8.1); BASOPHILS 0.7 %; EOSINOPHILS 1.3 %; HEMOGLOBIN 11.9 gm/dL (14.0-18.0); LYMPHOCYTES 39.9 %; MCH 31.9 pg (26.0-34.0); MCHC 35.1 g/dL (28.0-37.0); MONOCYTES 10.6 %; NUCLEATED RBCS 0 /100WBC; PLATELET COUNT* 189 thou/uL (150-400); POLYS 47.5 %; RBC 3.74 mil/uL (4.50-6.00); WBC 4.6 thou/uL (4.0-11.0)
[2018-12-18 05:50] LABS: CALCIUM 8.1 mg/dL (8.5-10.1); CREATININE 0.7 mg/dL (0.6-1.3)
[2018-12-18 07:30] VITALS: BP 113/71
--- NOTE | 2018-12-18 07:50 | NUR ---
PT TO FLOOR APROX 2100, ASSESSMENT COMPLETED CHARTED. SEE MAR. SEE CHARTING. FALL PRECAUTIONS IN PLACE. HOURLY ROUNDING FOR SAFETY.
[2018-12-18] MEDS ORDERED: NORCO 5-325 TA1 EAC1 PO (10:06)
--- NOTE | 2018-12-18 10:21 | NUR ---
INITIAL ASSESSMENT: Pt evaluated for d/c planning needs. Reviewed chart and spoke with nurse and pt. Pt lives in house with spouse and was able to ambulate at home with walker. Pt also has scooter, w/c, stool riser and shower bench at home. [facility] Pt plans on returning home on d/c from hospital. Will remain available to assist as needed.
[2018-12-18 12:13] VITALS: BP 95/59
[2018-12-18 16:07] VITALS: BP 117/62
--- NOTE | 2018-12-18 16:22 | CARDNUC ---
[place] [address] CARDIAC NUCLEAR IMAGING REPORT Name: ANA CRISTINA MC Room: [address] IN [facility]#: [id number] Admission: 12/17/18 Attend Phys: Marck Du, Discharge: Date of : 58 Date of Service: 12/18/18 1622 Report #: [id number] THIS REPORT FOR: //name// APPROVED REPORT Study performed: 12/18/2018 14:32:49 Exam: Nuclear Stress Test Indication: Chest pain Patient Location: In-Patient Room #: 231 Stress Tech: Ronel Boucher Stress Nurse: Gill Barrera RN Ht: 5 ft 7 in Wt: 159 lbs BSA: 1.83 m2 BMI: 24.90 Medical History Medical History: parkinsons, lewy body dementia Medications: xarelto Allergies: morphine,midodrine, cefdnir Cardiac Risk Factors: age, family hx Exercise History: Sedentary Stress Test Details Stress Test: Pharmacologic stress testing performed using 0.4 mg of regadenoson per 5 mL given IV over 10 seconds. Reason for pharmacologic stress test: physical limitation. HR Resting HR: 63 bpm Max Heart Rate (APMHR): 161 bpm Max HR Achieved: 100 bpm Target HR (85% APMHR): 136 bpm % of APMHR: 62 Recovery HR: 88 bpm BP Resting BP: 107/67 mmHg Max BP: 79/46 mmHg ECG Resting ECG: Sinus Rhythm Stress ECG: Sinus Rhythm ST Change: None Arrhythmia: None Recovery ECG: [place] [address] CARDIAC NUCLEAR IMAGING REPORT Name: ANA CRISTINA MC Room: [address]#: [id number] Admission: 12/17/18 Attend Phys: Marck Du, Discharge: Date of : 58 Date of Service: 12/18/18 1622 Report #: [id number] Change: None Recovery Arrhythmia: None Clinical Reason for Termination: Completed protocol Exercise duration: 0 min sec Exercise capacity: 1 METs The patient tolerated Lexiscan infusion without significant symptoms. Nurse Comments pt unable to walk on treadmill due to parkinsons and dementia Stress ECG Conclusion The baseline 12-lead EKG shows sinus rhythm without significant ST or T wave abnormality. EKGs during and post Lexiscan infusion show sinus rhythm with no significant ST or T wave changes when compared to baseline. There were no stress-induced arrhythmias. NM EXAM: Myocardial Perfusion REST/STRESS Imaging Protocol: Rest Tc-99m/Stress Tc-99m 1 day Resting Data Rest SPECT myocardial perfusion imaging was performed in supine position 30 minutes following the intravenous injection of 10.2 mCi of Tc-99m Sestamibi. Time of rest injection: 13;05 The images were gated to evaluate regional wall motion and calculate left ventricular ejection fraction. Administration Route: IV Administration Site: Right Hand Pharmacologic Stress Pharmacologic stress test was performed by injecting Regadenoson 0.4 mg IV push followed by the intravenous injection of 33.8 mCi of Tc-99m Sestamibi. Time of stress injection: 14:25 Administration Route: IV Administration Site: Right Hand Heart Rate at time of stress injection: 100 bpm. Gated Stress SPECT was performed 40 minutes after stress injection. The images were gated to evaluate regional wall motion and calculate left ventricular ejection fraction[place] [address] CARDIAC NUCLEAR IMAGING REPORT Name: ANA CRISTINA MC Room: [address] IN ..#: [id number] Admission: 12/17/18 Attend Phys: Marck Du, Discharge: Date of : 58 Date of Service: 12/18/18 1622 Report #: [id number] Study: Good Artifact: Mild Diaphragmatic artifact Study Data At rest, the left ventricular ejection fraction was 72%.. Post stress, the left ventricular ejection was 72%.. TID = 1.01. Perfusion Perfusion images obtained at rest and post stress show mild photopenia in the inferior wall consistent with diaphragmatic attenuation artifact. No significant fixed or reversible defects were identified. Wall Motion Normal left ventricular wall motion. Nuclear Conclusion ECG Findings: negative for ischemia Clinical Findings: negative for ischemia Nuclear Findings: negative for ischemia Exercise Capacity: not assessed Left Ventricular Function: normal Risk Study: low Myocardial perfusion images show no defect to suggest infarct or ischemia. Left ventricular systolic function appears normal on gated studies. This is a low risk study. <Conclusion> The baseline 12-lead EKG shows sinus rhythm without significant ST or T wave abnormality. EKGs during and post Lexiscan infusion show sinus rhythm with no significant ST or T wave changes when compared to baseline. There were no stress-induced arrhythmias. <ELECTRONICALLY SIGNED> By: Shen Charles MD, [facility] 12/18/18 1622 162 162 Shen Charles MD, FACC /INF
--- NOTE | 2018-12-18 17:14 | EKG ---
[place] [address] ELECTROCARDIOGRAM REPORT Name: ANA CRISTINA MC Room: [address] ADM IN M.R.#: [id number] Admission: 12/17/18 Attend Phys: Marck Du MD Discharge: Date of : 58 Report #: [id number] THIS REPORT FOR: //name// [facility] ED Test Date: 2018-12-17 Test Time: 15:46:59 Pat Name: ANA CRISTINA MC Department: Room: [facility] Gender: M Special Agent Fbi: : 1960 Requested By: Anil Larry Order Number: [id number] MD: Pankaj Grissom Measurements Intervals [place] Rate: 95 P: -3 ID: 143 QRS: 41 QRSD: 90 T: 11 QT: 343 QTc: 431 Interpretive Statements Sinus rhythm Compared to ECG 08/28/2018 10:42:32 Right ventricular hypertrophy no longer present Electronically Signed On 12-18-2018 17:13:57 CDT by Pankaj Grissom [email or web address] <ELECTRONICALLY SIGNED> By: Pankaj Grissom MD, [facility] 12/18/18 1713 1546 1546 Pankaj Grissom MD, FAC /EPI
[2018-12-18 20:00] VITALS: BP 104/65
[2018-12-19 00:30] VITALS: BP 91/51
[2018-12-19 04:00] VITALS: BP 91/42
--- NOTE | 2018-12-19 06:27 | NUR ---
VSS. SEE MAR. SEE CHARTING. FALL PRECAUTIONS IN PLACE. HOURLY ROUNDING FOR SAFETY.
[2018-12-19 07:30] VITALS: BP 130/80
--- NOTE | 2018-12-19 10:31 | NUR ---
ORDERS RECEIVED FOR DC HOME WITH HH. MET WITH PT AND SPOKE WITH OVER PHONE. THEY ARE AGREEABLE AND CHOSE [facility] OR [facility]. HAD TO LEAVE MESSAGES, NO PREFERENCE. [facility] CALLED AND SET UP WITH THEM. PT WANTS TO COMPLETE DPOA ALSO. FORM IN ROOM, TO BE HERE AFTER 1130. WILL F/U THEN
[2018-12-19 10:32] VITALS: BP 91/42; BP 96/54
[2018-12-19 14:15] VITALS: BP 114/79
[2018-12-19 16:11] LABS: ABSOLUTE EOSINOPHILS 0.1 thou/uL (0.0-0.7); ABSOLUTE LYMPHOCYTES 1.3 thou/uL (0.8-5.3); ABSOLUTE MONOCYTES 0.5 thou/uL (0.0-1.2); ABSOLUTE NEUTROPHILS 3.2 thou/uL (1.6-8.1); BASOPHILS 0.6 %; EOSINOPHILS 1.2 %; HEMATOCRIT 35.9 % (42.0-52.0); HEMOGLOBIN 12.5 gm/dL (14.0-18.0); LYMPHOCYTES 25.5 %; MCH 31.6 pg (26.0-34.0); MCHC 34.8 g/dL (28.0-37.0); MCV 90.7 fL (80.0-100.0); MONOCYTES 9.5 %; MPV 7.6 fl. (7.2-11.1); NUCLEATED RBCS 0 /100WBC; PLATELET COUNT* 212 thou/uL (150-400); POLYS 63.2 %; RBC 3.96 mil/uL (4.50-6.00); RDW-CV 13.9 % (10.5-14.5)
[2018-12-19 16:26] LABS: CALCIUM 8.4 mg/dL (8.5-10.1); CREATININE 0.9 mg/dL (0.6-1.3); POTASSIUM 3.4 mmol/L (3.5-5.1); TOTAL BILIRUBIN 0.2 mg/dL (<0.1-1.0); TOTAL PROTEIN 6.3 g/dL (6.4-8.2)
[2018-12-19 20:00] VITALS: BP 117/67
[2018-12-20] VITALS: BP 99/61
[2018-12-20 04:20] VITALS: BP 101/60
--- NOTE | 2018-12-20 05:38 | NUR ---
ASSUMED CARE OF PT AFTER REPORT AT 1930. PT A&OX4. FORGETFUL. VSS. PHYSICAL ASSESSMENT COMPLETED AND CHARTED. PT ON RA. PT TRACING SB ON TELE. PT UP WITH 1 ASSIST. PT COMPLAINED OF BACK PAIN- MEDS GIVEN PER MAR. FALL PRECAUTIONS IN PLACE. CALL LIGHT WITHIN REACH.
[2018-12-20 08:00] VITALS: BP 115/73
[2018-12-20 11:48] VITALS: BP 96/54
[2018-12-20] MEDS ORDERED: CYCLOBENZAPRINE5 MG PO ×2 (13:03→13:04)
--- NOTE | 2018-12-20 13:48 | NUR ---
DC ORDERS RECEIVED. IV AND MONITOR REMOVED. PT. AND SPOUSE GIVEN DC INSTRUCTIONS, SCRIPTS, AND CARENOTES. ALL QUESTIONS ANSWERED. PT. LEFT VIA WHEELCHAIR TO RETURN HOME IN PERSONAL VEHICLE, ALL BELONGINGS ACCOUNTED FOR.
--- NOTE | 2018-12-20 14:06 | NUR ---
PT'S DC WAS DELAYED YESTERDAY. UPDATED ORDERS CALLED AND [facility]XED TO [facility]
== END 2018-12-20 13:10 | disposition home health service (06) | DRG 391 ==
LOC: M.ERS 15:41 → M.2W 19:00 → M.TBA-ER 19:00 → M.2W 19:00
PROVIDERS: Emergency Medicine; ADMIT Internal Medicine
DX: K21.9 Gastro-esophageal reflux disease without esophagitis (principal); G93.41 Metabolic encephalopathy; E86.0 Dehydration; G20 Parkinson's disease; F03.90 Unspecified dementia, unspecified severity, without behavioral disturbance, psychotic disturbance, mood disturbance, and anxiety; R91.1 Solitary pulmonary nodule; M19.90 Unspecified osteoarthritis, unspecified site; G43.909 Migraine, unspecified, not intractable, without status migrainosus; F32.9 Major depressive disorder, single episode, unspecified; F41.1 Generalized anxiety disorder; Z88.6 Allergy status to analgesic agent; Z88.8 Allergy status to other drugs, medicaments and biological substances; Z82.49 Family history of ischemic heart disease and other diseases of the circulatory system; Z83.3 Family history of diabetes mellitus; Z87.891 Personal history of nicotine dependence; Z82.0 Family history of epilepsy and other diseases of the nervous system; Z86.711 Personal history of pulmonary embolism

== ENCOUNTER 2019-01-08 13:57 | Emergency (ER) | payer OTHER ==
[~2019-01-08] VITALS: Ht 162.6 cm; Wt 71.7 kg
[~2019-01-08 13:57] MED LIST changes: +CYCLOBENZAPRINE5 MG PO; +NORCO 5-325 TA1 EAC1 PO
[2019-01-08] MEDS ORDERED: TRAMADOL 50 MG50 MG PO (14:10)
[2019-01-08 14:57] LABS: ABSOLUTE BASOPHILS 0.1 thou/uL (0.0-0.2); ABSOLUTE EOSINOPHILS 0.1 thou/uL (0.0-0.7); ABSOLUTE LYMPHOCYTES 1.8 thou/uL (0.8-5.3); ABSOLUTE MONOCYTES 0.6 thou/uL (0.0-1.2); ABSOLUTE NEUTROPHILS 3.2 thou/uL (1.6-8.1); BASOPHILS 0.9 %; EOSINOPHILS 1.8 %; HEMATOCRIT 37.6 % (42.0-52.0); HEMOGLOBIN 12.7 gm/dL (14.0-18.0); LYMPHOCYTES 30.8 %; MCH 30.8 pg (26.0-34.0); MCHC 33.9 g/dL (28.0-37.0); MCV 90.9 fL (80.0-100.0); MONOCYTES 10.9 %; MPV 8.1 fl. (7.2-11.1); NUCLEATED RBCS 0 /100WBC; POLYS 55.6 %; RBC 4.14 mil/uL (4.50-6.00); WBC 5.7 thou/uL (4.0-11.0)
[2019-01-08 15:01] LABS: CALCIUM 8.6 mg/dL (8.5-10.1); CREATININE 0.7 mg/dL (0.6-1.3); POTASSIUM 3.7 mmol/L (3.5-5.1)
[2019-01-08 15:05] LABS: ALBUMIN 3.6 g/dL (3.4-5.0); TOTAL BILIRUBIN 0.2 mg/dL (<0.1-1.0); TOTAL PROTEIN 6.5 g/dL (6.4-8.2)
[2019-01-08 15:24] LABS: PLATELET COUNT* 204 thou/uL (150-400)
[2019-01-08 15:25] LABS: PLATELET ESTIMATE ADEQUATE
[2019-01-08 15:54] VITALS: BP 109/65
[2019-01-08 16:01] LABS: APTT 27.8 Seconds (25.0-31.3); INR 1.1; PROTIME 10.8 Seconds (9.20-11.50)
== END 2019-01-08 15:54 | disposition home or self-care (01) ==
LOC: M.ERS 13:57
PROVIDERS: Family Medicine
DX: S80.02XA Contusion of left knee, initial encounter (principal); G20 Parkinson's disease; I95.9 Hypotension, unspecified; G43.909 Migraine, unspecified, not intractable, without status migrainosus; F41.1 Generalized anxiety disorder; F03.90 Unspecified dementia, unspecified severity, without behavioral disturbance, psychotic disturbance, mood disturbance, and anxiety; H35.30 Unspecified macular degeneration; Z88.5 Allergy status to narcotic agent; Z88.1 Allergy status to other antibiotic agents; Z88.8 Allergy status to other drugs, medicaments and biological substances; V19.9XXA Pedal cyclist (driver) (passenger) injured in unspecified traffic accident, initial encounter; Y93.89 Activity, other specified; Y92.89 Other specified places as the place of occurrence of the external cause; Y99.0 Civilian activity done for income or pay

== ENCOUNTER → 2019-06-26 | Outpatient (CLI) | payer OTHER | LOC: M.MRI 15:52 | DX: M25.462 Effusion, left knee (principal) ==

== ENCOUNTER 2019-07-10 02:54 | Observation (INO) | payer OTHER ==
[~2019-07-10] VITALS: Ht 162.6 cm; Wt 74.4 kg
--- NOTE | ~2019-07-10 | EKG ---
[place] [address] ELECTROCARDIOGRAM REPORT Name: ANA CRISTINA MC Room: [place] [address] ADM IN [facility]#: [id number] Admission: 07/10/19 Attend Phys: Kasey hernández Sa Discharge: Date of : 58 Date of Service: 07/10/19 0306 Report #: [id number] THIS REPORT FOR: cc: Mario Fall MD, Dean L. MD Epiphany, Epiphany MD ~ THIS REPORT FOR: //name// [facility] ED Test Date: 2019-07-10 Test Time: 03:06:03 Pat Name: ANA CRISTINA MC Department: Room: [facility] Gender: M Exerciser Horse: : 1960 Requested By: Marilynn Mercer Order Number: [id number] MD: Measurements Intervals [place] Rate: 71 P: 60 CO: 165 QRS: 56 QRSD: 100 T: 28 QT: 384 QTc: 418 Interpretive Statements Sinus rhythm Baseline wander in lead(s) V2 Compared to ECG 12/17/2018 15:46:59 No significant changes [email or web address] By: 5 5 Epiphany EpiphanyMD /MELANI
[2019-07-10 03:04] VITALS: BP 108/60
[2019-07-10 03:43] LABS: ABSOLUTE LYMPHOCYTES 1.9 thou/uL (0.8-5.3); ABSOLUTE MONOCYTES 0.7 thou/uL (0.0-1.2); ABSOLUTE NEUTROPHILS 2.7 thou/uL (1.6-8.1); BASOPHILS 0.7 %; EOSINOPHILS 0.9 %; HEMOGLOBIN 13.6 gm/dL (14.0-18.0); LYMPHOCYTES 35.8 %; MCHC 34.1 g/dL (28.0-37.0); MCV 90.8 fL (80.0-100.0); MONOCYTES 12.4 %; MPV 7.6 fl. (7.2-11.1); NUCLEATED RBCS 0 /100WBC; PLATELET COUNT* 192 thou/uL (150-400); POLYS 50.2 %; RDW-CV 13.6 % (10.5-14.5); WBC 5.4 thou/uL (4.0-11.0)
[2019-07-10 03:49] LABS: CALCIUM 8.4 mg/dL (8.5-10.1); CREATININE 0.8 mg/dL (0.6-1.3); POTASSIUM 3.5 mmol/L (3.5-5.1)
[2019-07-10 03:53] LABS: ALBUMIN 3.4 g/dL (3.4-5.0); TOTAL BILIRUBIN 0.2 mg/dL (<0.1-1.0); TOTAL PROTEIN 7.1 g/dL (6.4-8.2)
[2019-07-10 06:18] LABS: APTT 25.9 Seconds (25.0-31.3); PROTIME 10.7 Seconds (9.20-11.50)
[2019-07-10 09:26] LABS: URINE BILIRUBIN NEGATIVE (Negative); URINE BLOOD NEGATIVE (Negative); URINE CLARITY CLEAR; URINE COLOR YELLOW; URINE GLUCOSE-RANDOM NEGATIVE (Negative); URINE KETONES NEGATIVE (Negative); URINE LEUKOCYTES-REFLEX NEGATIVE (Negative); URINE NITRITE-REFLEX NEGATIVE (Negative); URINE PROTEIN NEGATIVE (Negative); URINE SPECIFIC GRAVITY <= 1.005 (1.005-1.030); URINE UROBILINOGEN 0.2 E.U./dl (0.2-1.0)
[2019-07-10 11:58] VITALS: BP 91/46
--- NOTE | 2019-07-10 17:44 | 2DMMODE ---
[place] [address] 2 D/M-MODE ECHOCARDIOGRAM Name: ANA CRISTINA MC Room: [address] MPatel#: [id number] Admission: 07/10/19 Attend Phys: Kasey hernández Sa Discharge: Date of : 58 Date of Service: 07/10/19 1743 Report #: [id number] THIS REPORT FOR: cc: Mario Fall MD, Dean L. MD Biggs, F. Douglas MD [facility] ~ APPROVED REPORT Study performed: 07/10/2019 14:31:29 EXAM: Comprehensive 2D, Doppler, and color-flow Echocardiogram Patient Location: In-Patient Room #: [facility] Status: routine BSA: 1.73 HR: 67 bpm BP: 91/46 mmHg Rhythm: NSR Other Information Study Quality: Good Indications Pulmonary Embolism 2D Dimensions IVSd: 9.43 (7-11mm) LVOT Diam: 20.87 (18-24mm) LVDd: 45.24 mm PWd: 9.65 (7-11mm) Ascending Ao: 28.49 (22-36mm) LVDs: 29.85 (25-40mm) Aortic Root: 31.75 mm Volumes Left Atrial Volume (Systole) LA ESV Index: 24.90 mL/m2 Aortic Valve AoV Peak Charlie.: 1.05 m/s AO Peak Gr.: 4.42 mmHg LVOT Max P.98 mmHg AO Mean Gr.: 2.64 mmHg LVOT Mean P.08 mmHg LVOT Max V: 1.00 m/s AO V2 VTI: 21.01 cm LVOT Mean V: 0.67 m/s BRANDON (VTI): 3.64 cm2 LVOT V1 VTI: 22.37 [place] [address] 2 D/M-MODE ECHOCARDIOGRAM Name: ANA CRISTINA MC Room: [address] MAddiRAddi#: [id number] Admission: 07/10/19 Attend Phys: Kasey hernández Sa Discharge: Date of : 58 Date of Service: 07/10/19 1743 Report #: [id number] Mitral Valve E/A Ratio: 1.36 MV Decel. Time: 196.83 ms MV E Max Charlie.: 0.77 m/s MV PHT: 57.08 ms MVA (PHT): 3.85 cm2 TDI E/Lateral E': 4.81 E/Medial E': 4.28 Medial E' Charlie.: 0.18 m/s Lateral E' Charlie.: 0.16 m/s Pulmonary Valve PV Peak Charlie.: 0.95 m/s PV Peak Gr.: 3.59 mmHg Tricuspid Valve RAP Estimate: 5.00 mmHg TR Peak Gr.: 18.93 mmHg RVSP: 23.00 mmHg PA Pressure: 23.00 mmHg Left Ventricle The left ventricle is normal size. There is normal LV segmental wall motion. There is normal left ventricular wall thickness. Left ventricular systolic function is normal. The left ventricular ejection fraction is within the normal range. LVEF is 55-60%. The left ventricular diastolic function is normal. Right Ventricle The right ventricle is normal size. The right ventricular systolic function is normal. Atria The left atrium size is normal. The right atrium size is normal. Aortic Valve The aortic valve is normal in structure. No aortic regurgitation is present. There is no aortic valvular stenosis. Mitral Valve The mitral valve is normal in structure. There is no mitral valve regurgitation noted. No evidence of mitral valve stenosis. Tricuspid Valve The tricuspid valve is normal in structure. Mild tricuspid regurgitation. [place] [address] 2 D/M-MODE ECHOCARDIOGRAM Name: ANA CRISTINA MC Room: [address] M.RAddi#: [id number] Admission: 07/10/19 Attend Phys: Kasey hernández Sa Discharge: Date of : 58 Date of Service: 07/10/19 1743 Report #: [id number] Pulmonic Valve The pulmonary valve is normal in structure. There is no pulmonic valvular regurgitation. Great Vessels The aortic root is normal in size. IVC is normal in size and collapses >50% with inspiration. Pericardium There is no pericardial effusion. <Conclusion> LVEF is 55-60%. The left ventricular diastolic function is normal. Left ventricular systolic function is normal. The left ventricular ejection fraction is within the normal range. The left ventricle is normal size. There is normal left ventricular wall thickness. The right ventricle is normal size. The right ventricular systolic function is normal. The right atrium size is normal. There is normal LV segmental wall motion. Mild tricuspid regurgitation. No pulmonary hypertension. <ELECTRONICALLY SIGNED> By: Paradise Xavier MD, FACC 07/10/191742 42 42 Paradise Xavier MD, FACC /INF
[2019-07-10 20:00] VITALS: BP 96/53
[2019-07-11 00:30] VITALS: BP 90/45
[2019-07-11 04:26] VITALS: BP 95/50
[2019-07-11 08:01] VITALS: BP 99/54
[2019-07-11] MEDS ORDERED: XARELTO15 MG PO (10:37)
[2019-07-11 10:56] VITALS: BP 99/54
== END 2019-07-11 12:49 | disposition home or self-care (01) ==
LOC: M.ERS 02:54 → M.TBA-ER 06:24 → M.2W 06:24
PROVIDERS: Personal Emergency Response Attendant; ADMIT Family Medicine
DX: I26.99 Other pulmonary embolism without acute cor pulmonale (principal); R19.7 Diarrhea, unspecified; F03.90 Unspecified dementia, unspecified severity, without behavioral disturbance, psychotic disturbance, mood disturbance, and anxiety; K44.9 Diaphragmatic hernia without obstruction or gangrene; G20 Parkinson's disease

== ENCOUNTER 2019-07-15 19:44 | Emergency (ER) | payer OTHER ==
[~2019-07-15] VITALS: Ht 162.6 cm; Wt 68.0 kg
[~2019-07-15 19:44] MED LIST changes: +XARELTO15 MG PO
[2019-07-15 21:40] VITALS: BP 97/56
== END 2019-07-15 21:40 | disposition home or self-care (01) ==
LOC: M.ERS 19:44
DX: R07.81 Pleurodynia (principal); G43.909 Migraine, unspecified, not intractable, without status migrainosus; Z86.711 Personal history of pulmonary embolism; Z88.1 Allergy status to other antibiotic agents; Z88.5 Allergy status to narcotic agent; Z88.8 Allergy status to other drugs, medicaments and biological substances

== ENCOUNTER 2019-09-17 20:13 | Emergency (ER) | payer OTHER ==
[~2019-09-17] VITALS: Ht 162.6 cm; Wt 70.1 kg
[2019-09-17 21:07] LABS: INFLUENZA A ANTIGEN Negative (Negative); INFLUENZA B ANTIGEN Negative (Negative)
[2019-09-17 21:07] LABS: ABSOLUTE EOSINOPHILS 0.1 thou/uL (0.0-0.7); ABSOLUTE LYMPHOCYTES 1.9 thou/uL (0.8-5.3); ABSOLUTE MONOCYTES 0.9 thou/uL (0.0-1.2); ABSOLUTE NEUTROPHILS 7.3 thou/uL (1.6-8.1); BASOPHILS 0.5 %; EOSINOPHILS 0.5 %; HEMATOCRIT 39.6 % (42.0-52.0); HEMOGLOBIN 13.7 gm/dL (14.0-18.0); LYMPHOCYTES 18.8 %; MCH 31.3 pg (26.0-34.0); MCHC 34.6 g/dL (28.0-37.0); MCV 90.5 fL (80.0-100.0); NUCLEATED RBCS 0 /100WBC; PLATELET COUNT* 180 thou/uL (150-400); POLYS 71.2 %; RBC 4.38 mil/uL (4.50-6.00); RDW-CV 14.1 % (10.5-14.5); WBC 10.3 thou/uL (4.0-11.0)
[2019-09-17 21:13] LABS: URINE BILIRUBIN NEGATIVE (Negative); URINE BLOOD 2+ (Negative); URINE CLARITY CLEAR; URINE COLOR YELLOW; URINE GLUCOSE-RANDOM NEGATIVE (Negative); URINE KETONES NEGATIVE (Negative); URINE LEUKOCYTES-REFLEX NEGATIVE (Negative); URINE NITRITE-REFLEX NEGATIVE (Negative); URINE PROTEIN NEGATIVE (Negative); URINE UROBILINOGEN 0.2 E.U./dl (0.2-1.0)
[2019-09-17 21:17] LABS: CALCIUM 8.5 mg/dL (8.5-10.1); CREATININE 0.9 mg/dL (0.6-1.3); POTASSIUM 3.4 mmol/L (3.5-5.1)
[2019-09-17 21:19] LABS: APTT 29.6 Seconds (25.0-31.3); INR 1.2; PROTIME 11.8 Seconds (9.20-11.50)
[2019-09-17 21:21] LABS: ALBUMIN 3.4 g/dL (3.4-5.0); MAGNESIUM 2.1 mg/dL (1.8-2.4); TOTAL BILIRUBIN 0.2 mg/dL (<0.1-1.0)
[2019-09-17] MEDS ORDERED: LEVOTHYROXINE (21:36)
[2019-09-17 21:40] LABS: SQUAMOUS 0-3 Few /LPF (0-3); TRANSITIONAL EPITHEL CELL 0-3 Few /LPF (None Seen); URINE WBC-REFLEX 6-15 Few /HPF (0-5); WBC CLUMPS Few (None Seen)
[2019-09-17 21:41] LABS: CASTS None Seen /LPF (None Seen); CRYSTALS None Seen /LPF (None Seen); MUCUS 0-3 Light strn/LPF (None Seen)
[2019-09-17] MEDS ORDERED: MACROBID 100 M100 MG PO (22:20)
[2019-09-17 22:44] VITALS: BP 105/65
--- NOTE | 2019-09-18 09:22 | EKG ---
[place] [address] ELECTROCARDIOGRAM REPORT Name: ANA CRISTINA MC Room: [facility]#: [id number] Admission: 09/17/19 Attend Phys: Discharge: 09/17/19 Date of : 58 Date of Service: 09/17/192046 Report #: [id number] THIS REPORT FOR: //name// [facility] ED Test Date: 2019-09-17 Test Time: 20:47:59 Pat Name: ANA CRISTINA MC Department: Room: Gender: Medical Delivery Driver: : 1960 Requested By: Nitin Young Order Number: [id number] MD: Pankaj Grissom Measurements Intervals [place] Rate: 85 P: 38 [place]: 147 QRS: 40 QRSD: 95 T: 18 QT: 352 QTc: 419 Interpretive Statements Sinus rhythm Compared to ECG 07/10/2019 03:06:03 No significant changes Electronically Signed On 09-18-2019 9:20:36 CDT by Pankaj Grissom [email or web address] <ELECTRONICALLY SIGNED> By: Pankaj Grissom MD, [facility] 09/18/19919 46 46 Pankaj Grissom MD, FACC /EPI
== END 2019-09-17 22:46 | disposition home or self-care (01) ==
LOC: M.ERS 20:13
PROVIDERS: Nurse Practitioner Psychiatric/Mental Health
DX: N39.0 Urinary tract infection, site not specified (principal); R07.89 Other chest pain; R42 Dizziness and giddiness; G43.909 Migraine, unspecified, not intractable, without status migrainosus; Z88.1 Allergy status to other antibiotic agents; Z88.5 Allergy status to narcotic agent; Z88.8 Allergy status to other drugs, medicaments and biological substances; Z86.711 Personal history of pulmonary embolism; W18.39XA Other fall on same level, initial encounter; Y93.89 Activity, other specified; Y92.89 Other specified places as the place of occurrence of the external cause; Y99.8 Other external cause status

== ENCOUNTER 2019-10-21 00:17 | Emergency (ER) | payer OTHER ==
[~2019-10-21] VITALS: Ht 162.6 cm; Wt 68.0 kg
[~2019-10-21 00:17] MED LIST changes: +LEVOTHYROXINE; +MACROBID 100 M100 MG PO
[2019-10-21] MEDS ORDERED: PERCOCET 5-3251 EACH PO (02:15)
[2019-10-21 02:27] VITALS: BP 89/50
== END 2019-10-21 02:28 | disposition home or self-care (01) ==
LOC: M.ERS 00:17
DX: M54.6 Pain in thoracic spine (principal); G43.909 Migraine, unspecified, not intractable, without status migrainosus; Z88.5 Allergy status to narcotic agent; Z88.1 Allergy status to other antibiotic agents; Z88.8 Allergy status to other drugs, medicaments and biological substances; Z86.711 Personal history of pulmonary embolism

== ENCOUNTER 2019-10-31 05:58 | Emergency (ER) | payer OTHER ==
[~2019-10-31] VITALS: Ht 162.6 cm; Wt 69.1 kg
[~2019-10-31 05:58] MED LIST changes: +PERCOCET 5-3251 EACH PO
[2019-10-31 06:27] LABS: ABSOLUTE MONOCYTES 1.2 thou/uL (0.0-1.2); ABSOLUTE NEUTROPHILS 9.4 thou/uL (1.6-8.1); BASOPHILS 0.2 %; HEMATOCRIT 41.4 % (42.0-52.0); HEMOGLOBIN 14.1 gm/dL (14.0-18.0); LYMPHOCYTES 15.8 %; MCH 31.3 pg (26.0-34.0); MONOCYTES 9.5 %; MPV 7.6 fl. (7.2-11.1); NUCLEATED RBCS 0 /100WBC; PLATELET COUNT* 237 thou/uL (150-400); POLYS 74.5 %; RDW-CV 14.3 % (10.5-14.5); WBC 12.7 thou/uL (4.0-11.0)
[2019-10-31 06:42] LABS: CALCIUM 8.8 mg/dL (8.5-10.1); CREATININE 0.9 mg/dL (0.6-1.3); POTASSIUM 3.8 mmol/L (3.5-5.1)
[2019-10-31 06:46] LABS: ALBUMIN 3.6 g/dL (3.4-5.0); TOTAL BILIRUBIN 0.3 mg/dL (<0.1-1.0); TOTAL PROTEIN 7.8 g/dL (6.4-8.2)
[2019-10-31 06:50] LABS: ALCOHOL < 10 mg/dL (<10); SALICYLATE < 2.8 mg/dL (2.8-20.0)
[2019-10-31 06:51] LABS: ACETAMINOPHEN < 2 ug/mL (10-30)
[2019-10-31 07:24] LABS: URINE BILIRUBIN NEGATIVE (Negative); URINE BLOOD TRACE (Negative); URINE CLARITY CLEAR; URINE COLOR YELLOW; URINE GLUCOSE-RANDOM NEGATIVE (Negative); URINE KETONES NEGATIVE (Negative); URINE LEUKOCYTES-REFLEX NEGATIVE (Negative); URINE NITRITE-REFLEX NEGATIVE (Negative); URINE PROTEIN NEGATIVE (Negative); URINE UROBILINOGEN 0.2 E.U./dl (0.2-1.0)
[2019-10-31 07:39] LABS: AMP/METHAMP Negative (Negative); BARBITURATES Negative (Negative); BENZODIAZEPINES Negative (Negative); COCAINE Negative (Negative); METHADONE Negative (Negative); OPIATES Negative (Negative); PCP Negative (Negative); THC Negative (Negative)
[2019-10-31 10:21] VITALS: BP 106/57
--- NOTE | 2019-10-31 16:18 | EKG ---
[place] [address] ELECTROCARDIOGRAM REPORT Name: ANA CRISTINA MC Room: [facility]#: [id number] Admission: 10/31/19 Attend Phys: Discharge: 10/31/19 Date of : 58 Date of Service: 10/31/19629 Report #: [id number] THIS REPORT FOR: //name// [facility] ED Test Date: 2019-10-31 Test Time: 06:30:37 Pat Name: ANA CRISTINA MC Department: Room: Gender: Drill Grinder: : 1960 Requested By: Brennon Gonzalez Order Number: [id number] MD: Pankaj Grissom Measurements Intervals [place] Rate: 71 P: 15 IA: 137 QRS: 28 QRSD: 93 T: 12 QT: 353 QTc: 384 Interpretive Statements Sinus rhythm Compared to ECG 09/17/2019 20:47:59 No significant changes Electronically Signed On 10-31-2019 16:16:02 CDT by Pankaj Grissom [email or web address] <ELECTRONICALLY SIGNED> By: Pankaj Grissom MD, [facility] 10/31/19 1616 9 9 Pankaj Grissom MD, [facility] /EPI
== END 2019-10-31 10:21 | disposition home or self-care (01) ==
LOC: M.ERS 05:58
PROVIDERS: Emergency Medicine Emergency Medical Services
DX: M54.6 Pain in thoracic spine (principal); T48.205A Adverse effect of unspecified drugs acting on muscles, initial encounter; G20 Parkinson's disease; G43.909 Migraine, unspecified, not intractable, without status migrainosus; Z86.711 Personal history of pulmonary embolism; Z88.6 Allergy status to analgesic agent; Z88.8 Allergy status to other drugs, medicaments and biological substances; Y92.89 Other specified places as the place of occurrence of the external cause

== ENCOUNTER → 2019-11-04 | Outpatient (CLI) | payer OTHER | LOC: M.RAD 14:23 | DX: M47.816 Spondylosis without myelopathy or radiculopathy, lumbar region (principal); M41.86 Other forms of scoliosis, lumbar region ==

== ENCOUNTER 2019-12-07 20:55 | Observation (INO) | payer OTHER ==
[~2019-12-07] VITALS: Ht 162.6 cm; Wt 71.3 kg
--- NOTE | ~2019-12-07 | EEG ---
[address] [address] EEG STUDY REPORT Name: ANA CRISTINA MC Room: [address] Ava Flowers#: [id number] Admission: 12/08/19 Attend Phys: Cassandra Tolliver Discharge: 12/09/19 Date of : 58 Report #: [id number] THIS REPORT FOR: //name// CC: Mario Villar DATE OF SERVICE: 12/08/2019 This patient is being evaluated for altered mental status. EEG was done by placing the electrode by standard 10-20 system of electrode placement. Both referential and sequential montages were used for recording. Background activity in this patient's EEG is about 8-9 Hz and 30 microvolt. It is a symmetrical activity. Photic stimulation is unremarkable. The patient became drowsy and that is associated with bilateral slowing and vertex sharp waves. Throughout the record, no active epileptiform activity was noticed. IMPRESSION: This patient's EEG is intermixed with slowing. That is a nonspecific abnormality, which can occur with dementia, effect of psychotropic medication, encephalopathy, etc. No active epileptiform activity was noticed. Thank you very much for this referral. By: 1628 1735Parfernando Roberts MD /nt
--- NOTE | ~2019-12-07 | CON ---
[address] [address] CONSULTATION Name: ANA CRISTINA MC Room: [address] Ava Flowers#: [id number] Admission: 12/08/19 Attend Phys: Cassandra Tolliver Discharge: Date of : 58 Report #: [id number] THIS REPORT FOR: //name// cc: Mario Fall MD, Dean L. MD ~ THIS REPORT FOR: //name// CC: Mario Villar DATE OF SERVICE: 12/08/2019 HISTORY OF PRESENT ILLNESS: This is a 59-year-old male patient who was evaluated for me the possibility of stroke. I talked to the patient's before and after seeing the patient. I talked to Dr. Josue. I talked to the nurses looking after this patient and I talked to MRI. The nurses down stair has noticed that this patient had some speech difficulty after receiving some pain medication, but speech difficulty resolved quickly. Talking to the , it would appear this patient has a Lewy body dementia. He has Parkinson feature as well as dementia. The symptoms started around 2009. It has become progressively worse. Both his memory and his Parkinson features have become worse. REVIEW OF SYSTEMS: Positive for some back pain for which he has been followed up. He has some chest pain. He has dementia. At one time, he had bronchitis. He has a history of pulmonary embolus. He had some headache, but did not complain of any headache to me. 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 He had a hypotensive episode. He has a question of orthostatic hypotension. Those are things summarized in the patient's chart. A 14-point review of system is otherwise difficult to carry out because the patient is a very poor historian. However, he does not complain of any new eye, ENT, endocrine, allergic or throat symptom associated with present symptomatology. He does have chronic back pain. He does have abdominal pains. He does not have any hematological and dermatological feature, which is new. PAST MEDICAL HISTORY: Positive for diagnosis of Lewy body dementia. FAMILY HISTORY: Unremarkable. SOCIAL HISTORY: He says he lives with his and I talked to her. PHYSICAL EXAMINATION: Indicate he is alert. He is responsive. After sometime, he can tell me what month it is. He could not tell me what exact date it is. His speech to me looks intact, but he talks very slowly and is difficult to understand, but his speech is there. Cranial [place] [address] CONSULTATION Name: ALEXANDROANA CRISTINA Room: [address] M.R.#: [id number] Admission: 12/08/19 Attend Phys: Cassandra Tolliver Discharge: Date of : 58 Report #: [id number] like a slight facial weakness on the right side, but he moves both phase pretty well. There is no meningeal sign in this patient. He moves all four extremities. His position sense is intact. His reflexes are symmetrical. His pulses are palpable. Cardiac and respiratory examination is unremarkable. Blood pressure is 124/77, respirations 22, pulse is 74, temperature is 98.1. LABORATORY DATA: White count is normal at 6.1. He had a CT and MRI, they were reviewed. They do not show any acute stroke. IMPRESSION: It does look like the patient had any vascular event. He is on Topamax for some reason, the nurses, they are going to restart it. We will put him on aspirin. I will get an EEG done. He already go to [facility] and that is where I believe he should go after he is dismissed. Thank you very much for this referral. By: 1554 2020Dread Rboerts MD /nt
[~2019-12-07 20:55] MED LIST changes: -LEVOTHYROXINE; +LEVOTHYROXINE PO
[2019-12-07 21:03] VITALS: BP 108/56
[2019-12-07] MEDS ORDERED: GABAPENTIN 100100 MG PO (21:21)
[2019-12-07 22:12] LABS: BE -3.4 mmol/L (-2 to +3); PCO2 35.6 mmHg (35.0-45.0); pH 7.388 (7.340-7.450)
[2019-12-07 22:15] LABS: ABSOLUTE LYMPHOCYTES 1.9 thou/uL (0.8-5.3); ABSOLUTE MONOCYTES 0.6 thou/uL (0.0-1.2); ABSOLUTE NEUTROPHILS 3.6 thou/uL (1.6-8.1); BASOPHILS 0.4 %; EOSINOPHILS 0.6 %; HEMATOCRIT 37.1 % (42.0-52.0); HEMOGLOBIN 12.8 gm/dL (14.0-18.0); LYMPHOCYTES 31.1 %; MCH 31.7 pg (26.0-34.0); MCHC 34.4 g/dL (28.0-37.0); MCV 92.1 fL (80.0-100.0); MONOCYTES 9.7 %; NUCLEATED RBCS 0 /100WBC; PLATELET COUNT* 203 thou/uL (150-400); POLYS 58.2 %; RBC 4.03 mil/uL (4.50-6.00); RDW-CV 14.7 % (10.5-14.5); WBC 6.2 thou/uL (4.0-11.0)
[2019-12-07 22:20] LABS: CALCIUM 8.2 mg/dL (8.5-10.1); POTASSIUM 3.2 mmol/L (3.5-5.1)
[2019-12-07 22:22] LABS: APTT 27.5 Seconds (25.0-31.3); INR 1.2; PROTIME 12.2 Seconds (9.20-11.50)
[2019-12-07 22:25] LABS: ALBUMIN 3.4 g/dL (3.4-5.0); MAGNESIUM 1.9 mg/dL (1.8-2.4); PHOSPHORUS* 2.6 mg/dL (2.5-4.9); TOTAL BILIRUBIN 0.1 mg/dL (<0.1-1.0); TOTAL PROTEIN 6.6 g/dL (6.4-8.2)
[2019-12-08] VITALS (9 sets, daily range): BP systolic 99–124; BP diastolic 61–84
[2019-12-08 00:45] LABS: URINE BILIRUBIN NEGATIVE (Negative); URINE BLOOD NEGATIVE (Negative); URINE CLARITY CLEAR; URINE COLOR STRAW; URINE GLUCOSE-RANDOM NEGATIVE (Negative); URINE KETONES NEGATIVE (Negative); URINE LEUKOCYTES-REFLEX NEGATIVE (Negative); URINE NITRITE-REFLEX NEGATIVE (Negative); URINE PROTEIN TRACE (Negative); URINE SPECIFIC GRAVITY <= 1.005 (1.005-1.030); URINE UROBILINOGEN 0.2 E.U./dl (0.2-1.0)
[2019-12-08 00:54] LABS: AMP/METHAMP Negative (Negative); BARBITURATES Negative (Negative); BENZODIAZEPINES Negative (Negative); COCAINE Negative (Negative); METHADONE Negative (Negative); OPIATES Negative (Negative); PCP Negative (Negative); THC Negative (Negative)
--- NOTE | 2019-12-08 03:20 | NUR ---
PATIENT'S ADMISSION HISTORY MAY BE INACCURATE, UNRELIABLE HISTORIAN D/T DEMENTIA. PT WOULD GIVE ONE RESPONSE TO A QUESTION AND THEN CHANGE THE RESPONSE LATER.
--- NOTE | 2019-12-08 05:26 | NUR ---
ASSUMED CARE OF PT APPROX 0200. PT A&OX4, FORGETFUL, ON ROOM AIR, VSS, PT PT UP WITH ASSIST WITH BR PRIVILEGES. PT C/O PAIN AND NAUSEA, PHYSICIAN CONTACTED, ORDERS GIVEN FOR ZOFRAN IV AND NORCO. IV FLUIDS INFUSING ORDERED. ASSESSMENTS AND HOURLY ROUNDINGS COMPLETE. WILL CONTINUE TO MONITOR.
--- NOTE | 2019-12-08 10:20 | NUR ---
AT 0940 THE BED ALARM SOUNDED AND PATIENT WAS TRYING TO CLIMB OUT OF BED. HE WAS NOT RESPONDING VERBALLY AND WAS SHAKING HIS ARMS. HE WOULD NOT FOLLOW COMMANDS AT THAT TIME. I CHECKED HIS VITAL SIGNS AND THEY WERE FOLLOWS: B/P 124/77 RESP. 24 PULSE 74 O2 SAT 100% ON ROOM AIR HIS BLOOD SUGAR WAS 91. DR SALGUERO WAS PAGED AND I CALLED A RAPID RESPONSE AT 0948. THE PATIENT APPEARD PANICED. DR SALGUERO ARRIVED AND HE DECIDED TO CALL A CODE STROKE TOSSER WAS HERE AND NIH SCALE WAS DONE AND PATIENT WAS TAKEN IMMEDIATELY TO CT THEN HE WILL GO UP TO ROOM 225 ON THE TELE FLOOR. PATIENT WAS CALM AT APPROX. 0956 AND WAS RESTING WELL WHEN HE LEFT THE FLOOR BUT STILL WAS NOT RESPONDING VERBALLY.
--- NOTE | 2019-12-08 10:28 | NUR ---
I CALLED HIS TO UPDATE HER ON HIS CONDITION AND TO LET HER KNOW HIS NEW ROOM NUMBER. SHE CALLED ME THIS MORNING AND TOLD ME THAT HIS SPEECH IS GARBLED SOME TIMES AND THAT HE IS USUALLY HARD TO UNDERSTAND. I PASSED THIS ON IN REPORT.
--- NOTE | 2019-12-08 10:30 | NUR ---
ACCOMPANIED BY MYSELF TO CT AFTER IT COMPLIANCE ANALYST. UNABLE TO COMPLETE NIH-SEE INTERVENTION D/T PATIENT'S MENTAL STATUS. CT & XRAY COMPLETED AND TAKEN TO 225 WITH BELONGINGS, INCLUDING CAR/BIKE DUFF. PATIENT MORE AWAKE AND CONVERSATIONAL. ATTEMPTED TO URINATE IN URINAL AND DEFECATE IN BEDPAN, UNABLE TO. REPORTED TO DENISE/ROCK. C/O "LUNG PAIN" ON LEFT CHEST 01/11. EKG COMPLETED. NSR. STATES HE HAD PRESSURE IN HIS HEAD AND THEN DOESN'T REMEMBER THE EVENTS THAT LED TO THE IT COMPLIANCE ANALYST. STATES HE DOESN'T HAVE A HX OF SEIZURE BUT HAS HAD AN EEG. STATES HE HAS LEWEY BODY DEMENTIA AND PARKINSONS. DR. SALGUERO NOTIFIED OF ABOVE.
[2019-12-08 11:19] LABS: HEMATOCRIT 37.2 % (42.0-52.0); MCH 32.3 pg (26.0-34.0); MCHC 34.9 g/dL (28.0-37.0); MCV 92.5 fL (80.0-100.0); RBC 4.02 mil/uL (4.50-6.00); RDW-CV 14.5 % (10.5-14.5); WBC 6.1 thou/uL (4.0-11.0)
[2019-12-08 11:27] LABS: APTT 25.4 Seconds (25.0-31.3); PROTIME 10.8 Seconds (9.20-11.50)
[2019-12-08 11:28] LABS: CALCIUM 7.9 mg/dL (8.5-10.1); CREATININE 0.8 mg/dL (0.6-1.3); POTASSIUM 3.8 mmol/L (3.5-5.1)
[2019-12-08 11:32] LABS: ALBUMIN 3.4 g/dL (3.4-5.0); TOTAL BILIRUBIN 0.3 mg/dL (<0.1-1.0); TOTAL PROTEIN 6.5 g/dL (6.4-8.2)
--- NOTE | 2019-12-08 15:39 | EKG ---
[place] [address] ELECTROCARDIOGRAM REPORT Name: ANA CRISTINA MC Room: [address] M.R.#: [id number] Admission: 12/08/19 Attend Phys: Matilde Villar Discharge: Date of : 58 Date of Service: 12/07/192206 Report #: [id number] THIS REPORT FOR: //name// [facility] ED Test Date: 2019-12-07 Test Time: 22:07:29 Pat Name: ANA CRISTINA MC Department: Room: [facility] Gender: M Designer/Writer: ELA : 1960 Requested By: Marilynn Mercer Order Number: [id number] MD: Pankaj Grissom Measurements Intervals [place] Rate: 75 P: 39 [place]: 147 QRS: 49 QRSD: 87 T: 30 QT: 350 QTc: 391 Interpretive Statements Sinus rhythm Compared to ECG 10/31/2019 06:30:37 No significant changes Electronically Signed On 12-08-2019 15:39:36 CDT by Pankaj Grissom [email or web address] <ELECTRONICALLY SIGNED> By: Pankaj Grissom MD, [facility] 12/08/19 1539 06 Pankaj Grissom MD, [facility] /EPI
--- NOTE | 2019-12-08 15:43 | EKG ---
[place] [address] ELECTROCARDIOGRAM REPORT Name: ALEXANDROANA CRISTINA Room: [address] M.R.#: [id number] Admission: 12/08/19 Attend Phys: Matilde Villar Discharge: Date of : 58 Date of Service: 12/08/19 1051 Report #: [id number] THIS REPORT FOR: //name// [facility] Test Date: 2019-12-08 Test Time: 10:51:47 Pat Name: ANA CRISTINA MC Department: Room: [facility] Gender: M Cold Type Artist: UNKNOWN : 1960 Requested By: Horacio Josue Order Number: [id number] Reese MD: Pankaj Grissom Measurements Intervals [place] Rate: 59 P: 65 ME: 177 QRS: 55 QRSD: 94 T: 31 QT: 401 QTc: 398 Interpretive Statements Sinus rhythm Baseline wander in lead(s) V2 Compared to ECG 12/07/2019 22:07:29 No significant changes Electronically Signed On 12-08-2019 15:43:06 CDT by Pankaj Grissom [email or web address] <ELECTRONICALLY SIGNED> By: Pankaj Grissom MD, FACC 12/08/19 1543 1051 1051 Pankaj Grissom MD, [facility] /EPI
--- NOTE | 2019-12-08 16:49 | NUR ---
VS CHARTED, NSR ON TELE, A&OX4, ROOM AIR, PARKINSONS, UP WITH ONE, NIH 7- DIAGNOSTICS SHOW NO STROKE ACTIVITY, PARTIAL APHASIA AT BASELINE, RECEIVED PATIENT MID SHIFT TRANSFER FROM [facility], I AGREE WITH THE ASSESSMENT OF THE PREVIOUS RN, HOURLY ROUNDING PERFORMED, POSSESSIONS AND CALL LIGHT WITHIN REACH.
--- NOTE | 2019-12-08 17:15 | NUR ---
CODE STROKE CALLED ON PT. THIS AM. TRANSFERRED TO TELE AFTER CT SCAN. CT AND MRIS WERE NEG. FOR CVA. NURSING SAID PT.IS BACK TO HIS BASELINE. IS APHASIC. HAD TO LEAVE FOR ON HER CELL PHONE, TO CALL CM BACK TO DISCUSS DISCHARGE PLANS FOR WHEN PT.IS READY TO BE DISCHARGED. ATTEMPTED TO CALL AT HOME ALSO. PERSON THAT ANSWERED PHONE SAID SHE WAS STILL AT WORK.
[2019-12-09 02:06] LABS: GLYCOHEMOGLOBIN (HGB A1C) 5.6 % (4.8-5.6)
[2019-12-09 06:20] LABS: ABSOLUTE EOSINOPHILS 0.1 thou/uL (0.0-0.7); ABSOLUTE LYMPHOCYTES 1.8 thou/uL (0.8-5.3); ABSOLUTE MONOCYTES 0.6 thou/uL (0.0-1.2); BASOPHILS 0.5 %; EOSINOPHILS 1.3 %; HEMATOCRIT 38.7 % (42.0-52.0); LYMPHOCYTES 27.6 %; MCH 31.2 pg (26.0-34.0); MCHC 33.6 g/dL (28.0-37.0); MCV 92.7 fL (80.0-100.0); MONOCYTES 9.2 %; MPV 7.3 fl. (7.2-11.1); NUCLEATED RBCS 0 /100WBC; PLATELET COUNT* 179 thou/uL (150-400); POLYS 61.4 %; RBC 4.17 mil/uL (4.50-6.00); RDW-CV 14.5 % (10.5-14.5); WBC 6.5 thou/uL (4.0-11.0)
[2019-12-09 06:31] LABS: ALBUMIN 3.2 g/dL (3.4-5.0); CALCIUM 8.2 mg/dL (8.5-10.1); TOTAL BILIRUBIN 0.2 mg/dL (<0.1-1.0); TOTAL PROTEIN 6.4 g/dL (6.4-8.2)
--- NOTE | 2019-12-09 06:56 | NUR ---
Pt alert and oriented. VSS on RA. Meds given per emar. At about 0410. pt called out saying he had a 10/10 chest pain rating. No sign of distress noted at this time. Pt also complained of nausea. VSS at that time. EKG done and was SR. Dr Cortez contacted. Per Dr Cortez, "I dont believe its a true 10 pain rating if pt is not showing any sign of discomfort". Dr Cortez ok to give zofran for nausea and ativan IV. Pt STB to the bathroom. Will continue to monitor.
[2019-12-09 08:53] VITALS: BP 113/64
--- NOTE | 2019-12-09 09:56 | EKG ---
[place] [address] ELECTROCARDIOGRAM REPORT Name: ALEXANDROANA CRISTINA Room: [address]R.#: [id number] Admission: 12/08/19 Attend Phys: Matilde Villar Discharge: Date of : 58 Date of Service: 12/09/19 0413 Report #: [id number] THIS REPORT FOR: //name// [facility] Test Date: 2019-12-09 Test Time: 04:13:16 Pat Name: ANA CRISTINA MC Department: Room: [address] Gender: M Test Engineer Nuclear Equipment: [id number] : 1960 Requested By: Kasey Mena Order Number: [id number] Reese MD: Ray Shay Measurements Intervals [place] Rate: 55 P: 43 [place]: 171 QRS: 34 QRSD: 93 T: 13 QT: 427 QTc: 409 Interpretive Statements Sinus rhythm Compared to ECG 12/08/2019 10:51:47 No significant changes Electronically Signed On 12-09-2019 9:55:42 CDT by Ray Shay [email or web address] <ELECTRONICALLY SIGNED> By: Ray Shay MD, [facility] 12/09/19 0955 0413 0413 Ray Shay MD, [facility] /EPI
[2019-12-09 11:30] VITALS: BP 90/54
--- NOTE | 2019-12-09 11:42 | NUR ---
PT IS ALERT AND ORIENTED BUT DIFFICULT TO UNDERSTAND AT TIMES WORDS ARE MUMBLED AND SOMETIMES JUMBLED PT DENIES ANY PAIN HAD CHEST PAIN AT 0400 BUT STATED THAT IT HAD SUBSIDED NOW SB TO SR ON THE MONITOR CALL LIGHT IN REACH
[2019-12-09] MEDS ORDERED: XARELTO20 MG PO (14:29)
[2019-12-09 14:30] VITALS: BP 90/54
[2019-12-09 15:51] VITALS: BP 90/54
--- NOTE | 2019-12-09 16:16 | NUR ---
Pt to dc home today with pt . SW arranged pt/family preference of [facility] by faxing referral and orders to intake of [facility]. Pt to provide pt ride home.
--- NOTE | 2019-12-09 17:10 | NUR ---
PT DISCHARGED WITH TO HOME HEALTH NO CHANGES MADE NO QUESTIONS OR CONCERNS
== END 2019-12-09 16:00 | disposition home or self-care (01) ==
LOC: M.ERS 20:55 → M.2W 12-08 00:25 → M.TBA-ER 12-08 00:25 → M.ORTHSURG 12-08 01:56 → M.2W 12-08 10:44
PROVIDERS: Internal Medicine; Personal Emergency Response Attendant; ADMIT Internal Medicine; ATTEND Internal Medicine
DX: R41.82 Altered mental status, unspecified (principal); R07.89 Other chest pain; R10.9 Unspecified abdominal pain; E87.2 Acidosis; M54.9 Dorsalgia, unspecified; G89.29 Other chronic pain; G20 Parkinson's disease; F02.80 Dementia in other diseases classified elsewhere, unspecified severity, without behavioral disturbance, psychotic disturbance, mood disturbance, and anxiety; I95.9 Hypotension, unspecified; E78.5 Hyperlipidemia, unspecified; K21.9 Gastro-esophageal reflux disease without esophagitis; F32.9 Major depressive disorder, single episode, unspecified; G43.909 Migraine, unspecified, not intractable, without status migrainosus; I86.1 Scrotal varices; F41.1 Generalized anxiety disorder; Z86.711 Personal history of pulmonary embolism; Z79.01 Long term (current) use of anticoagulants

== ENCOUNTER 2019-12-31 04:28 | Emergency (ER) | payer OTHER ==
[~2019-12-31] VITALS: Ht 162.6 cm; Wt 68.0 kg
[~2019-12-31 04:28] MED LIST changes: +GABAPENTIN 100100 MG PO
[2019-12-31 06:46] VITALS: BP 114/72
== END 2019-12-31 06:47 | disposition home or self-care (01) ==
LOC: M.ERS 04:28
DX: G43.909 Migraine, unspecified, not intractable, without status migrainosus (principal); Z88.1 Allergy status to other antibiotic agents; Z88.5 Allergy status to narcotic agent; Z88.8 Allergy status to other drugs, medicaments and biological substances; Z86.711 Personal history of pulmonary embolism

== ENCOUNTER 2020-04-13 10:29 | Emergency (ER) | payer OTHER ==
[~2020-04-13] VITALS: Ht 165.1 cm; Wt 66.5 kg
[2020-04-13 10:58] LABS: INFLUENZA A ANTIGEN Negative (Negative); INFLUENZA B ANTIGEN Negative (Negative)
[2020-04-13 11:06] LABS: ABSOLUTE EOSINOPHILS 0.1 thou/uL (0.0-0.7); ABSOLUTE LYMPHOCYTES 1.6 thou/uL (0.8-5.3); ABSOLUTE MONOCYTES 0.6 thou/uL (0.0-1.2); ABSOLUTE NEUTROPHILS 3.3 thou/uL (1.6-8.1); BASOPHILS 0.6 %; EOSINOPHILS 1.1 %; HEMATOCRIT 39.4 % (42.0-52.0); HEMOGLOBIN 13.1 gm/dL (14.0-18.0); LYMPHOCYTES 28.5 %; MCH 29.5 pg (26.0-34.0); MCHC 33.2 g/dL (28.0-37.0); MPV 7.5 fl. (7.2-11.1); NUCLEATED RBCS 0 /100WBC; PLATELET COUNT* 192 thou/uL (150-400); POLYS 58.8 %; RBC 4.43 mil/uL (4.50-6.00); RDW-CV 14.7 % (10.5-14.5); WBC 5.6 thou/uL (4.0-11.0)
[2020-04-13 11:10] LABS: CALCIUM 8.5 mg/dL (8.5-10.1); CREATININE 0.8 mg/dL (0.6-1.3); POTASSIUM 3.1 mmol/L (3.5-5.1)
[2020-04-13 11:14] LABS: PROTIME 10.7 Seconds (9.20-11.50)
[2020-04-13 11:21] LABS: ALBUMIN 3.5 g/dL (3.4-5.0); TOTAL BILIRUBIN 0.2 mg/dL (<0.1-1.0); TOTAL PROTEIN 7.3 g/dL (6.4-8.2)
[2020-04-13] MEDS ORDERED: TROKENDI XR200 MG PO (11:27)
[2020-04-13] MEDS ORDERED: ARICEPT10 M1 PO (11:27)
[2020-04-13] MEDS ORDERED: REQUIP 1 MG TABL1 M1 (11:28)
[2020-04-13] MEDS ORDERED: OMEPRAZOLE40 MG PO (11:28)
[2020-04-13] MEDS ORDERED: CLONAZEPAM 0.50.5 M1 PO (11:29)
[2020-04-13] MEDS ORDERED: MIRTAZAPINE15 M2 PO (11:29)
[2020-04-13] MEDS ORDERED: PAXIL40 MG PO (11:29)
[2020-04-13] MEDS ORDERED: FLUDROCORTISON0.1 MG PO (11:30)
[2020-04-13] MEDS ORDERED: BUPROPION XL300 MG PO (11:30)
[2020-04-13] MEDS ORDERED: ROSUVASTATIN CA40 MG PO (11:30)
[2020-04-13] MEDS ORDERED: ULTRAM 50MG TAB50 MG PO (11:31)
[2020-04-13] MEDS ORDERED: NAMENDA 5 MG TAB5 M1 PO (11:31)
[2020-04-13] MEDS ORDERED: LEVO-T25 MCG PO (11:32)
[2020-04-13] MEDS ORDERED: VITAMIN B-125000 MCG SUBLING (11:32)
[2020-04-13] MEDS ORDERED: ZPAK PO (13:36)
[2020-04-13] MEDS ORDERED: VENTOLIN HFA 1818 GM INH (13:36)
[2020-04-13 14:13] VITALS: BP 133/78
--- NOTE | 2020-04-13 16:12 | EKG ---
[place] [address] ELECTROCARDIOGRAM REPORT Name: ANA CRISTINA MC Room: [facility]#: [id number] Admission: 04/13/20 Attend Phys: Discharge: 04/13/20 Date of : 58 Date of Service: 04/13/20 [facility] Report #: [id number] THIS REPORT FOR: //name// [facility] ED Test Date: 2020-04-13 Test Time: 10:38:44 Pat Name: ANA CRISTINA MC Department: Room: Gender: Crystal Slicer: : 1960 Requested By: Emely Linares Order Number: [id number] MD: Pankaj Grissom Measurements Intervals [place] Rate: 66 P: 44 [place]: 167 QRS: 37 QRSD: 98 T: 25 QT: 405 QTc: 425 Interpretive Statements Sinus rhythm Baseline wander in lead(s) V1 Compared to ECG 12/09/2019 04:13:16 No significant changes Electronically Signed On 04-13-2020 16:11:50 INDUSTRIAL SEWER by Pankaj Grissom [email or web address] <ELECTRONICALLY SIGNED> By: Pankaj Grissom MD, [facility] 04/13/20 1611 1038 1038 Pankaj Grissom MD, FACC /EPI
== END 2020-04-13 14:13 | disposition home or self-care (01) ==
LOC: M.ERS 10:29
PROVIDERS: Nurse Practitioner Family
DX: J98.8 Other specified respiratory disorders (principal); M25.562 Pain in left knee; Z20.828 Contact with and (suspected) exposure to other viral communicable diseases; G20 Parkinson's disease; G43.909 Migraine, unspecified, not intractable, without status migrainosus; E78.5 Hyperlipidemia, unspecified; E03.9 Hypothyroidism, unspecified; Z88.1 Allergy status to other antibiotic agents; Z86.711 Personal history of pulmonary embolism; Z88.5 Allergy status to narcotic agent; Z88.8 Allergy status to other drugs, medicaments and biological substances

== ENCOUNTER 2020-05-06 17:49 | Emergency (ER) | payer OTHER ==
[~2020-05-06] VITALS: Ht 162.6 cm; Wt 68.0 kg
[~2020-05-06 17:49] MED LIST changes: +ARICEPT10 M1 PO; +BUPROPION XL300 MG PO; +FLUDROCORTISON0.1 MG PO; +LEVO-T25 MCG PO; +MIRTAZAPINE15 M2 PO; +NAMENDA 5 MG TAB5 M1 PO; +OMEPRAZOLE40 MG PO; +REQUIP 1 MG TABL1 M1; +ROSUVASTATIN CA40 MG PO; +TROKENDI XR200 MG PO; +ULTRAM 50MG TAB50 MG PO; +VENTOLIN HFA 1818 GM INH; +VITAMIN B-125000 MCG SUBLING; +ZPAK PO
[2020-05-06] MEDS ORDERED: PAXIL30 MG PO (18:01)
[2020-05-06] MEDS ORDERED: VITAMIN D325 MC3 PO (18:02)
[2020-05-06 18:18] LABS: ABSOLUTE EOSINOPHILS 0.1 thou/uL (0.0-0.7); ABSOLUTE LYMPHOCYTES 1.9 thou/uL (0.8-5.3); ABSOLUTE MONOCYTES 0.6 thou/uL (0.0-1.2); ABSOLUTE NEUTROPHILS 2.8 thou/uL (1.6-8.1); BASOPHILS 0.7 %; HEMATOCRIT 39.7 % (42.0-52.0); HEMOGLOBIN 13.4 gm/dL (14.0-18.0); LYMPHOCYTES 35.3 %; MCH 29.8 pg (26.0-34.0); MCHC 33.8 g/dL (28.0-37.0); MCV 88.2 fL (80.0-100.0); MONOCYTES 10.7 %; MPV 7.4 fl. (7.2-11.1); NUCLEATED RBCS 0 /100WBC; PLATELET COUNT* 182 thou/uL (150-400); POLYS 52.3 %; RDW-CV 15.5 % (10.5-14.5); WBC 5.3 thou/uL (4.0-11.0)
[2020-05-06 18:29] LABS: CALCIUM 8.2 mg/dL (8.5-10.1); CREATININE 0.8 mg/dL (0.6-1.3); POTASSIUM 3.2 mmol/L (3.5-5.1)
[2020-05-06 18:30] LABS: APTT 24.5 Seconds (25.0-31.3); PROTIME 10.4 Seconds (9.20-11.50)
[2020-05-06 18:54] LABS: ALBUMIN 3.5 g/dL (3.4-5.0); MAGNESIUM 2.2 mg/dL (1.8-2.4); TOTAL BILIRUBIN 0.2 mg/dL (<0.1-1.0); TOTAL PROTEIN 7.1 g/dL (6.4-8.2)
[2020-05-06 21:20] VITALS: BP 113/67
--- NOTE | 2020-05-07 17:59 | EKG ---
[place] [address] ELECTROCARDIOGRAM REPORT Name: ANA CRISTINA MC [facility] [id number] Admission: 05/06/20 Attend Phys: Discharge: 05/06/20 Date of : 58 Date of Service: 05/06/201757 Report #: [id number] THIS REPORT FOR: //name// [facility] ED Test Date: 2020-05-06 Test Time: 17:58:50 Pat Name: ANA CRISTINA MC Department: Room: Gender: Tire Changer: [facility] : 1960 Requested By: Anil Larry Order Number: [id number] MD: Shen Charles Measurements Intervals [place] Rate: 67 P: 72 ME: 161 QRS: 69 QRSD: 92 T: 40 QT: 422 QTc: 446 Interpretive Statements Sinus rhythm Baseline wander in lead(s) V1 Compared to ECG 04/13/2020 10:38:44 No significant changes Electronically Signed On 05-07-2020 17:59:48 ASPHALT STILL OPERATOR by Shen Charles [email or web address] <ELECTRONICALLY SIGNED> By: Shen Charles MD, [facility] 05/07/20 1759 1758 175 Shen Charles MD, [facility] /EPI
== END 2020-05-06 21:20 | disposition home or self-care (01) ==
LOC: M.ERS 17:49
PROVIDERS: Emergency Medicine
DX: R07.89 Other chest pain (principal); Z20.828 Contact with and (suspected) exposure to other viral communicable diseases; G20 Parkinson's disease; G43.909 Migraine, unspecified, not intractable, without status migrainosus; E03.9 Hypothyroidism, unspecified; E78.5 Hyperlipidemia, unspecified; Z86.711 Personal history of pulmonary embolism; Z88.1 Allergy status to other antibiotic agents; Z88.5 Allergy status to narcotic agent; Z88.8 Allergy status to other drugs, medicaments and biological substances; W05.0XXA Fall from non-moving wheelchair, initial encounter; Y93.89 Activity, other specified; Y92.89 Other specified places as the place of occurrence of the external cause; Y99.8 Other external cause status

== ENCOUNTER 2020-05-13 22:26 | Inpatient (IN) | payer OTHER ==
[~2020-05-13] VITALS: Ht 162.6 cm; Wt 66.2 kg
[~2020-05-13 22:26] MED LIST changes: +PAXIL30 MG PO; +VITAMIN D325 MC3 PO
[2020-05-13 22:41] VITALS: BP 130/77
[2020-05-13 23:14] LABS: ABSOLUTE EOSINOPHILS 0.1 thou/uL (0.0-0.7); ABSOLUTE LYMPHOCYTES 1.7 thou/uL (0.8-5.3); ABSOLUTE MONOCYTES 0.6 thou/uL (0.0-1.2); ABSOLUTE NEUTROPHILS 2.9 thou/uL (1.6-8.1); BASOPHILS 0.6 %; EOSINOPHILS 1.1 %; HEMATOCRIT 36.4 % (42.0-52.0); HEMOGLOBIN 12.4 gm/dL (14.0-18.0); LYMPHOCYTES 31.7 %; MCH 29.7 pg (26.0-34.0); MCV 87.4 fL (80.0-100.0); MONOCYTES 12.1 %; MPV 7.5 fl. (7.2-11.1); NUCLEATED RBCS 0 /100WBC; PLATELET COUNT* 179 thou/uL (150-400); POLYS 54.5 %; RBC 4.16 mil/uL (4.50-6.00); RDW-CV 15.1 % (10.5-14.5); WBC 5.3 thou/uL (4.0-11.0)
[2020-05-13 23:23] LABS: CALCIUM 7.7 mg/dL (8.5-10.1); CREATININE 0.9 mg/dL (0.6-1.3)
[2020-05-13 23:25] LABS: POTASSIUM 2.7 mmol/L (3.5-5.1)
[2020-05-13 23:33] LABS: ALBUMIN 3.3 g/dL (3.4-5.0); MAGNESIUM 2.1 mg/dL (1.8-2.4); TOTAL BILIRUBIN 0.2 mg/dL (<0.1-1.0); TOTAL PROTEIN 6.3 g/dL (6.4-8.2)
[2020-05-13 23:48] LABS: URINE BILIRUBIN NEGATIVE (Negative); URINE BLOOD NEGATIVE (Negative); URINE CLARITY CLEAR; URINE COLOR YELLOW; URINE GLUCOSE-RANDOM NEGATIVE (Negative); URINE KETONES NEGATIVE (Negative); URINE LEUKOCYTES-REFLEX NEGATIVE (Negative); URINE NITRITE-REFLEX NEGATIVE (Negative); URINE PROTEIN NEGATIVE (Negative); URINE UROBILINOGEN 0.2 E.U./dl (0.2-1.0)
[2020-05-14] VITALS (7 sets, daily range): BP systolic 95–127; BP diastolic 50–78
--- NOTE | 2020-05-14 05:01 | NUR ---
PT ALERT, FORGETFUL. ORIENTED TO SELF AND PLACE. CO EPIGASTRIC PAIN. FENTANYL GIVEN. PT HAD ONE SMALL LIGHT CALVERT/BROWN BM. PROTONIX QTT INFUSING FROM ED. NS AT 100MLS/HR STARTED. WILL CONTINUE TO MONITOR.
--- NOTE | 2020-05-14 10:22 | NUR ---
RECIEVED REPORT AROUND 729. ASSUMED CARE. IV INTACT RIGHT HAND. HEART MONITOR ATTACHED AT SB. PT LYING IN BED. GI CONSULTED THIS AM. ORDERED EGD THIS AM. NPO STATUS INTACT. CONSENT OBTAINED. IN CHART. PT REPRTED PAIN. WANTS TO HOLD ANY PAIN MEDS UNTIL AFTER EGD. MEDS GIVEN PER AUG. HAD CT DONE THIS AM. CALL LIGHT WITHIN REACH. WILL CONTINUE TO MONITOR.
--- NOTE | 2020-05-14 10:23 | EKG ---
[place] [address] ELECTROCARDIOGRAM REPORT Name: ALEXANDROANA CRISTINA Room: [address] M.R.#: [id number] Admission: 05/14/20 Attend Phys: Matilde Villar Discharge: Date of : 58 Date of Service: 05/13/202237 Report #: [id number] THIS REPORT FOR: //name// [facility] ED Test Date: 2020-05-13 Test Time: 22:38:32 Pat Name: ANA CRISTINA MC Department: Room: [facility] Gender: M Manager Of Operations: ELAINA : 1960 Requested By: Mary Beth Byrd Order Number: [id number] MD: Ray Shay Measurements Intervals [place] Rate: 80 P: 10 [place]: 150 QRS: 23 QRSD: 93 T: 18 QT: 408 QTc: 471 Interpretive Statements Sinus rhythm Probable left atrial enlargement Compared to ECG 05/06/2020 17:58:50 No significant changes Electronically Signed On 05-14-2020 10:23:44 CHAR CONVEYOR TENDER CELLAR by Ray Shay [email or web address] <ELECTRONICALLY SIGNED> By: Ray Shay MD, [facility] 05/14/20 1023 37 37 Ray Shay MD, [facility] /EPI
--- NOTE | 2020-05-14 13:06 | NUR ---
CM COMPLETED THE INITIAL ASSESSMENT TO DISCUSS D/C PLANNING. PT IS A&O. PT LIVES HOME W/FAMILY, AND MIL. SON LIVES CLOSE BY AND HELPS HOUSEWORK/ERRANDS AT TIMES. PT IS TYPICALLY ABLE TO COMPLETE ADLS AND CHORES, "ON MY GOOD DAYS." PT STATES HE IS "HOMEBOUND." PT HAS SCOOTER AND WALKER. PT HAS HX W/[facility]. PT DENIES HX W/SNF. CM TO CONT TO FOLLOW.
--- NOTE | 2020-05-14 19:39 | NUR ---
PT LYING IN BED. EGD DONE TODAY. POSSIBLE DISCHARGE TOMORROW. ADVANCE DIET TOLERATED. MEDS GIVEN PER AUG. HOURLY ROUNDING PERFORMED. CALL LIGHT WIHTIN REACH. REPORT GIVEN TO FELT CHECKER. FELT CHECKER RN ASSUMED CARE.
[2020-05-15] VITALS (9 sets, daily range): BP systolic 101–145; BP diastolic 60–76
--- NOTE | 2020-05-15 05:05 | NUR ---
No acute event this shift. Pt no complains of pain. Pt sleep most of the shift. VS stable. Pt up with minimal assist to commode toleraling well. Meds given per aug. Pt used call light appropriately, safety precaution in placed.
--- NOTE | 2020-05-15 10:11 | NUR ---
RECIEVED REPORT AROUND 0715. ASSUMED CARE. PT LYING IN BED. VS AND ASSESSMENT CHARTED. HEART MONITOR ATTACHED AT SB. PT REPORTED SOME PAIN OF "8" OUT OF 10 IN EPIGASTRIC AREA. MEDS GIVEN PER AUG. WASH DOWN GIVEN THIS AM. CALL LIGHT WITHIN REACH. WILL CONTINUE TO MONITOR.
--- NOTE | 2020-05-15 16:21 | NUR ---
PT BECAME LETHARGIC. UNABLE TO AROUSE TO STERNAL RUB. PT MOANED. COULD NOT FOLLOW COMMANDS. VITALS TAKEN. CHARTED. VITALS STABLE. EKG DONE. NOTHING ABNORMAL. BLOOD SUGAR TAKEN 92. DR NOTIFIED OF EPISODE. SEE CHART FOR ORDERS. PT NOW ALERT ABLE TO ANSWER QUESTIONS. PT IS IN PAIN. CALL LIGHT WITHIN REACH. WILL CONTINUE TO MONITOR.
[2020-05-15 16:31] LABS: BE -3.5 mmol/L (-2 to +3); PCO2 VENOUS 40.7 mmHg (41.0-51.0); PO2 VENOUS 47.7 mmHg (35.0-45.0)
[2020-05-15 16:34] LABS: ABSOLUTE LYMPHOCYTES 1.5 thou/uL (0.8-5.3); ABSOLUTE MONOCYTES 0.6 thou/uL (0.0-1.2); ABSOLUTE NEUTROPHILS 3.1 thou/uL (1.6-8.1); BASOPHILS 0.6 %; EOSINOPHILS 0.7 %; HEMATOCRIT 38.4 % (42.0-52.0); HEMOGLOBIN 13.2 gm/dL (14.0-18.0); LYMPHOCYTES 28.8 %; MCH 29.8 pg (26.0-34.0); MCHC 34.3 g/dL (28.0-37.0); MONOCYTES 10.6 %; MPV 7.7 fl. (7.2-11.1); NUCLEATED RBCS 0 /100WBC; PLATELET COUNT* 204 thou/uL (150-400); POLYS 59.3 %; RBC 4.42 mil/uL (4.50-6.00); WBC 5.2 thou/uL (4.0-11.0)
[2020-05-15 17:19] LABS: ALBUMIN 3.5 g/dL (3.4-5.0); CALCIUM 8.2 mg/dL (8.5-10.1); POTASSIUM 3.7 mmol/L (3.5-5.1); TOTAL BILIRUBIN 0.2 mg/dL (<0.1-1.0); TOTAL PROTEIN 6.4 g/dL (6.4-8.2)
[2020-05-15 17:40] LABS: ESR (SEDRATE) 8 mm/hr (0-20)
[2020-05-15 17:58] LABS: MAGNESIUM 2.3 mg/dL (1.8-2.4)
--- NOTE | 2020-05-15 18:11 | NUR ---
NO NEW CHANGES. PT IN AND OUT OF BEING ALERT. CONSULTS CALLED PER . IS LEAD BURNER THIS EVENING. ORERED FOR TROPONINS TO BE DRAWN TONIGHT AND IN THE MORNING AND FOR EKG TO BE DONE TOMORROW. NEUROLOGY ALSO CONSULTED. DR JIMENEZ CONTACTED. ORDERED BLOOD PRESSURES FOR LYING AND STANDING, NOT SITTING. CURRENTLY UNABLE TO OBTAIN DUE TO PT SLEEPING, UNABLE TO STAND. MEDS GIVEN PER MAR. HOURLY ROUNDING PERFORMED. VISITED THIS SHIFT. UPDATED ON PT. CALL LIGHT WITHIN REACH. WILL CONTINUE TO MONITOR.
[2020-05-16] VITALS (8 sets, daily range): BP systolic 94–142; BP diastolic 40–77
--- NOTE | 2020-05-16 07:18 | NUR ---
Shift uneventful. Pt fully AOx4 throughought entire shift. Running SR on telemetry. Respirations are even and unlabored on room air. Pt is medically stable at this time.
--- NOTE | 2020-05-16 14:09 | CON ---
[address] [address] CONSULTATION Name: ANA CRISTINA MC Room: [address] IN M.R.#: [id number] Admission: 05/15/20 Attend Phys: Cassandra Tolliver Discharge: Date of : 58 Report #: [id number] THIS REPORT FOR: cc: Mario Fall MD, Dean L. MD ~ Paradise Xavier MD [facility] CARDIOLOGY CONSULTATION HISTORY OF PRESENT ILLNESS: I was asked by Dr. Villar to see this 59-year-old white male in cardiology consultation for chest pain and an episode of unresponsiveness. This man is very difficult to obtain a history from. He carries a diagnosis of dementia and at least 1 source as Lewy body dementia and he also has allegedly has Parkinson's. He was admitted with a GI bleed. Day before yesterday, I believe, he had an EGD looking for the source of his GI bleed. He also had an esophageal dilatation at that time. He began having chest pain yesterday afternoon. When I examined him today, the chest pain is reproducible by palpation of his left chest. He also is having a lot of abdominal pain and nausea. He has not had vomiting. I do not believe the man has had melena or hematochezia either. I have ordered a chest x-ray. He got an EKG yesterday with his chest pain that was normal. He had normal troponins yesterday. Today when he had more chest pain, he got another EKG that was normal while he was having chest pain and so far, this man has had 6 normal troponins. Another troponin is pending. His NT-proBNP on admission was 94. Apparently, he had some chest pain on admission also. He is impossible to get a history from. He is somewhat demented. He cannot give a full past medical history. He cannot give an accurate review of systems, social history or family history. He is attempted to obtain all those. ALLERGIES: MORPHINE, PREDNISONE, MIDODRINE AND OMNICEF. HOME MEDICATIONS: Include carbidopa/levodopa 1 tab t.i.d., the dose is not given; memantine 5 mg daily; bupropion 300 mg daily; donepezil 10 mg daily; pantoprazole 40 mg daily; ropinirole 2.5 mg t.i.d.; Florinef 0.1 mg b.i.d. This man apparently has orthostatic hypotension as he is KNOWN TO BE ALLERGIC TO MIDODRINE. He is from a [facility]. He also gets mirtazapine 15 mg at bedtime, levothyroxine 0.25 mg daily, albuterol treatments 2.5 mg q. 4 hours or DuoNeb, tramadol 50 mg p.r.n., clonazepam 0.5 mg t.i.d. p.r.n. On admission, his chest x-ray was normal. It was an AP only. PHYSICAL EXAMINATION: GENERAL: He presents as a well-developed, well-nourished white [place] [address] CONSULTATION Name: ANA CRISTINA MC Room: [address]#: [id number] Admission: 05/15/20 Attend Phys: Cassandra Tolliver Discharge: Date of : 58 Report #: [id number] VITAL SIGNS: Pulse was 56 and regular, blood pressure was 94/47, respirations 16 and regular, temperature is 97.4. HEENT: His head was atraumatic. Eyes clear. NECK: Supple. There is no jugular venous distention or hepatojugular reflux. Thyroid is not enlarged. There is no adenopathy. SKIN: Warm and dry. Mucous membranes are moist. LUNGS: Clear to auscultation and percussion. HEART: Revealed normal first and second heart sound. There is soft S4. There is no S3. There are no murmurs, rubs, thrills, heaves or gallops. PMI is nondisplaced. ABDOMEN: It was soft and flat and diffusely tender with significant right upper quadrant tenderness. There are no palpable masses, no organomegaly. EXTREMITIES: Reveal no cyanosis, clubbing or edema. NEUROLOGIC: The patient did not mentate normally, did talk normally, moved all extremities normally. He seemed quite confused when I talked to him. He did have reproducible pain in his chest with palpation on the left side of his chest anteriorly. IMPRESSION: 1. Chest pain. 2. Abdominal pain. 3. Gastrointestinal bleed. 4. Dementia, possibly Lewy body. 5. Parkinson's disease and an unresponsive episode. 6. Orthostatic hypotension. RECOMMENDATION: He is to get a Neurology consultation. He is to get an abdominal ultrasound to assess for gallbladder disease as he says he does still have his gallbladder. He will get an echo and a stress test, a Lexiscan Cardiolite study. Thank you very much for asking me to see the patient. If there are any questions, please feel free to contact me. <ELECTRONICALLY SIGNED> By: Paradise Xavier MD, [facility] 05/16/20 1409 [id number]. Harman Xavier MD, TONY /nt
--- NOTE | 2020-05-16 18:59 | NUR ---
RECEIVED REPORT. ASSUMED CARE OF PT AROUND 0730. AM ASSESSMENT AND VITALS COMPLETED CHARTED. SQL DBA IN PLACE. MEDS PER EMAR. PT WITH EPISODE OF COMBATIVE RUDE BEHAVIOR TOWARD MED STUDENT THIS AM, DR PATE AWARE. PT TO BE NPO AFTER MIDNIGHT FOR ABDOMINAL U/S IN THE AM. STRESS TEST AND ECHO TOMORROW WELL. CALLED THIS AFTERNOON. PT UP WITH SBA TO VOID AND HAVE A BM - NO BLOOD IN STOOL. PT COMPLAINED OF CHEST PAIN THIS AM, EKG NORMAL AND TROPS NEGATIVE - DR CADENA AWARE. PT WITH GOOD APPETITE. PT CURRENTLY RESTING IN BED. CALL LIGHT IS WITHIN REACH. HOURLY ROUNDING PERFORMED. FALL PRECAUTIONS IN PLACE.
[2020-05-17] VITALS: BP 143/74
[2020-05-17 04:00] VITALS: BP 140/68
[2020-05-17 08:00] VITALS: BP 127/68
--- NOTE | 2020-05-17 11:43 | NUR ---
RECIEVED REPORT AROUND 0715. ASSUMED CARE. IV INTACT. HEART MONITOR ATTACHED AT SB. PT LYING IN BED THIS MORNING. PT STATED "NO" TO ANY PAIN. NPO INTACT. PT TAKEN DOWN TO MRI AND THEN TO NUCLEAR MED FOR STRESS TEST. POSSIBLE DISCHARGE TODAY. WILL CONTINUE TO MONITOR.
--- NOTE | 2020-05-17 14:17 | NUR ---
CM INFORMED DURING PRIME ROUNDING OF THE PLAN OF CARE FOR THE PT. PLAN FOR PT TO HAVE EGD TODAY. STRESS TEST ALSO PLANNNED FOR TODAY, AND PT TO D/C PENDING RESULTS. NO D/C PLANNING NEEDS ANTICIPATED. CM WILL REMAIN AVAILABLE TO ASSIST AND FOLLOW NEEDED.
[2020-05-17] MEDS ORDERED: TOPAMAX 100 MG100 MG PO (14:58)
[2020-05-17] MEDS ORDERED: PROTONIX40 M4 PO (14:59)
--- NOTE | 2020-05-17 15:06 | EKG ---
[place] [address] ELECTROCARDIOGRAM REPORT Name: ANA CRISTINA MC Room: [address] ADM IN M.R.#: [id number] Admission: 05/15/20 Attend Phys: Matilde Villar Discharge: Date of : 58 Date of Service: 05/15/20 1530 Report #: [id number] THIS REPORT FOR: //name// [facility] Test Date: 2020-05-15 Test Time: 15:30:07 Pat Name: ANA CRISTINA MC Department: Room: [address] Gender: M Facilities And Grounds Director: TRUDY : 1960 Requested By: Matilde Villar Order Number: [id number] Reese MD: Pankaj Grissom Measurements Intervals [place] Rate: 85 P: 39 IN: 136 QRS: 50 QRSD: 97 T: 31 QT: 383 QTc: 456 Interpretive Statements Sinus rhythm Baseline wander in lead(s) V1 Compared to ECG 05/13/2020 22:38:32 No significant changes Electronically Signed On 05-17-2020 15:06:49 LABORER CEMENT GUN PLACING by Pankaj Grissom [email or web address] <ELECTRONICALLY SIGNED> By: Pankaj Grissom MD, [facility] 05/17/20 1506 1530 1530 Pankaj Grissom MD, [facility] /EPI
--- NOTE | 2020-05-17 15:09 | EKG ---
[place] [address] ELECTROCARDIOGRAM REPORT Name: ANA CRISTINA MC Room: [address] ADM IN M.R.#: [id number] Admission: 05/15/20 Attend Phys: Matilde Villar Discharge: Date of : 58 Date of Service: 05/16/20931 Report #: [id number] THIS REPORT FOR: //name// [facility] Test Date: 2020-05-16 Test Time: 09:32:59 Pat Name: ANA CRISTINA MC Department: Room: [address] Gender: M Business Travel Consultant: : 1960 Requested By: Matilde Villar Order Number: [id number] Reese MD: Pankaj Grissom Measurements Intervals [place] Rate: 75 P: 57 ID: 155 QRS: 35 QRSD: 102 T: 15 QT: 417 QTc: 466 Interpretive Statements Sinus rhythm Compared to ECG 05/16/2020 09:31:51 No significant changes Electronically Signed On 05-17-2020 15:09:44 INSTRUCTOR MILITARY SCIENCE by Pankaj Grissom [email or web address] <ELECTRONICALLY SIGNED> By: Pankaj Grissom MD, [facility] 05/17/20 1509 0932 Pankaj Grissom MD, [facility] /EPI
--- NOTE | 2020-05-17 15:09 | EKG ---
[place] [address] ELECTROCARDIOGRAM REPORT Name: ANA CRISTINA MC Room: [address] ADM IN M.R.#: [id number] Admission: 05/15/20 Attend Phys: Matilde Villar Discharge: Date of : 58 Date of Service: 05/16/20 0514 Report #: [id number] THIS REPORT FOR: //name// [facility] Test Date: 2020-05-16 Test Time: 05:14:12 Pat Name: ANA CRISTINA MC Department: Room: [address] Gender: M Business Support Administrator: THOWARD3 : 1960 Requested By: Paradise Xavier Order Number: [id number] Reese MD: Pankaj Grissom Measurements Intervals [place] Rate: 56 P: 43 [place]: 163 QRS: 45 QRSD: 95 T: 30 QT: 445 QTc: 430 Interpretive Statements Sinus rhythm RSR' in V1 or V2, right VCD Compared to ECG 05/13/2020 22:38:32 RSR' in V1 or V2 now present Electronically Signed On 05-17-2020 15:08:57 SET UP MECHANIC STAMPING MACHINES by Pankaj Grissom [email or web address] <ELECTRONICALLY SIGNED> By: Pankaj Grissom MD, [facility] 05/17/20 1508 0514 0514 Pankaj Grissom MD, [facility] /EPI
--- NOTE | 2020-05-17 15:09 | EKG ---
[place] [address] ELECTROCARDIOGRAM REPORT Name: ANA CRISTINA MC Room: [address] ADM IN M.R.#: [id number] Admission: 05/15/20 Attend Phys: Matilde Villar Discharge: Date of : 58 Date of Service: 05/16/20930 Report #: [id number] THIS REPORT FOR: //name// [facility] ED Test Date: 2020-05-16 Test Time: 09:31:51 Pat Name: ANA CRISTINA MC Department: Room: [address] Gender: M Relay Tester: : 1960 Requested By: Paradise Xavier Order Number: [id number] Reese MD: Pankaj Grissom Measurements Intervals [place] Rate: 74 P: 48 [place]: 162 QRS: 30 QRSD: 101 T: 11 QT: 407 QTc: 452 Interpretive Statements Sinus rhythm Probable left atrial enlargement Compared to ECG 05/16/2020 05:14:12 Right ventricular hypertrophy no longer present Electronically Signed On 05-17-2020 15:09:40 EDGE SANDER by Pankaj Grissom [email or web address] <ELECTRONICALLY SIGNED> By: Pankaj Grissom MD, [facility] 05/17/20 1509 0931 Pankaj Grissom MD, [facility] /EPI
--- NOTE | 2020-05-17 15:17 | EKG ---
[place] [address] ELECTROCARDIOGRAM REPORT Name: ANA CRISTINA MC Room: [address] ADM IN M.R.#: [id number] Admission: 05/15/20 Attend Phys: Matilde Villar Discharge: Date of : 58 Date of Service: 05/17/20 1218 Report #: [id number] THIS REPORT FOR: //name// [facility] Test Date: 2020-05-17 Test Time: 12:18:36 Pat Name: ANA CRISTINA MC Department: Room: [address] Gender: M Library Page: : 1960 Requested By: Pankaj Grissom Order Number: [id number] Reese MD: Pankaj Grissom Measurements Intervals [place] Rate: 68 P: 59 [place]: 161 QRS: 53 QRSD: 102 T: 25 QT: 426 QTc: 454 Interpretive Statements Sinus rhythm Compared to ECG 05/16/2020 09:32:59 No significant changes Electronically Signed On 05-17-2020 15:16:53 LENS AND FRAMES PRESCRIPTION CLERK by Pankaj Grissom [email or web address] <ELECTRONICALLY SIGNED> By: Pankaj Grissom MD, [facility] 05/17/20 1516 1218 1218 Pankaj Grissom MD, [facility] /EPI
[2020-05-17 15:20] VITALS: BP 127/68
[2020-05-17 15:36] VITALS: BP 116/66; BP 128/73
--- NOTE | 2020-05-17 16:19 | 2DMMODE ---
[place] [address] 2 D/M-MODE ECHOCARDIOGRAM Name: ANA CRISTINA MC Room: [address] IN .R.#: [id number] Admission: 05/15/20 Attend Phys: Matilde Villar Discharge: Date of : 58 Date of Service: 05/17/20 1619 Report #: [id number] THIS REPORT FOR: cc: Mario Fall MD, Dean L. MD [place],Pankaj Guevara MD [facility] ~ APPROVED REPORT Study performed: 05/17/2020 14:09:51 EXAM: Comprehensive 2D, Doppler, and color-flow Echocardiogram Patient Location: In-Patient Room #: [facility] BSA: 1.71 HR: 70 bpm BP: 127/68 mmHg Other Information Study Quality: Good Indications Chest Pain 2D Dimensions IVSd: 9.95 (7-11mm) LVOT Diam: 20.19 (18-24mm) LVDd: 43.57 mm PWd: 9.95 (7-11mm) Ascending Ao: 28.40 (22-36mm) LVDs: 25.27 (25-40mm) Aortic Root: 31.15 mm Volumes Left Atrial Volume (Systole) LA ESV Index: 10.70 mL/m2 Aortic Valve AoV Peak Charlie.: 1.14 m/s AO Peak Gr.: 5.22 mmHg LVOT Max P.38 mmHg AO Mean Gr.: 2.84 mmHg LVOT Mean P.02 mmHg LVOT Max V: 1.05 m/s AO V2 VTI: 18.70 cm LVOT Mean V: 0.65 m/s BRANDON (VTI): 3.51 cm2 LVOT V1 VTI: 20.51 [place] [address] 2 D/M-MODE ECHOCARDIOGRAM Name: ANA CRISTINA MC Room: [address] IN .R.#: [id number] Admission: 05/15/20 Attend Phys: Matilde Villar Discharge: Date of : 58 Date of Service: 05/17/20 1619 Report #: [id number] E/A Ratio: 0.99 MV Decel. Time: 203.05 ms MV E Max Charlie.: 0.76 m/s MV PHT: 58.88 ms MVA (PHT): 3.74 cm2 TDI E/Lateral E': 4.75 E/Medial E': 5.85 Medial E' Charlie.: 0.13 m/s Lateral E' Charlie.: 0.16 m/s Pulmonary Valve PV Peak Charlie.: 0.82 m/s PV Peak Gr.: 2.70 mmHg Tricuspid Valve RAP Estimate: 5.00 mmHg TR Peak Gr.: 32.72 mmHg RVSP: 37.72 mmHg PA Pressure: 37.72 mmHg Left Ventricle The left ventricle is normal size. There is normal LV segmental wall motion. There is normal left ventricular wall thickness. Left ventricular systolic function is normal. The left ventricular ejection fraction is within the normal range. LVEF is 60-65%. Grade I - abnormal relaxation pattern. Right Ventricle The right ventricle is normal size. The right ventricular systolic function is normal. Atria The left atrium size is normal. The right atrium size is normal. Aortic Valve The aortic valve is normal in structure. No aortic regurgitation is present. There is no aortic valvular stenosis. Mitral Valve The mitral valve is normal in structure. There is no mitral valve regurgitation noted. No evidence of mitral valve stenosis. Tricuspid Valve The tricuspid valve is normal in structure. [place] [address] 2 D/M-MODE ECHOCARDIOGRAM Name: ALEXANDROANA CRISTINA Room: [address] IN [facility]#: [id number] Admission: 05/15/20 Attend Phys: Matilde Villar Discharge: Date of : 58 Date of Service: 05/17/20 1619 Report #: [id number] Pulmonic Valve The pulmonary valve is normal in structure. There is no pulmonic valvular regurgitation. Great Vessels The aortic root is normal in size. IVC is normal in size and collapses >50% with inspiration. Pericardium There is no pericardial effusion. <Conclusion> The left ventricle is normal size. There is normal left ventricular wall thickness. Left ventricular systolic function is normal. The left ventricular ejection fraction is within the normal range. LVEF is 60-65%. Grade I - abnormal relaxation pattern. The right ventricle is normal size. The left atrium size is normal. The aortic valve is normal in structure. The mitral valve is normal in structure. The tricuspid valve is normal in structure. Mild tricuspid regurgitation. IVC is normal in size and collapses >50% with inspiration. There is no pericardial effusion. There is normal LV segmental wall motion. <ELECTRONICALLY SIGNED> By: Pankaj Grissom MD, [facility] 05/17/20 1619 18 161 Pankaj Grissom MD, [facility] /INF
--- NOTE | 2020-05-17 16:20 | NUR ---
RECIEVED DISCHARGE ORDERS. PT ANXCIOUS TO GO HOME. IV'S TAKEN OUT. HEART MONITOR OFF. DISCHARGE PAPER WORK GONE OVER WITH SPOUSE. COMMUNICATED UNDERSTADNING. PT LEFT UNIT AT 1610 VIA WHEEL CHAIR WITH NURSING STAFF AND ALL BELONGINGS.
--- NOTE | 2020-05-18 09:02 | CARDNUC ---
[place] [address] CARDIAC NUCLEAR IMAGING REPORT Name: ALEXANDROANA CRISTINA Scott Room: [address] IN [facility]#: [id number] Admission: 05/15/20 Attend Phys: Matilde Villar Discharge: 05/17/20 Date of : 58 Date of Service: 05/18/20 0902 Report #: [id number] THIS REPORT FOR: cc: Mario Fall MD, Dean L. MD Liston, Michael J. MD [facility] ~ APPROVED REPORT Imaging Protocol: Stress Tc-99m/Rest Tc-99m 2 days Study performed: 05/16/2020 10:31:00 Indication: chest pain, altered responsiveness. Patient Location: In-Patient Room #: 220 Stress Tech: Ronel Boucher Stress Nurse: Hanh Wilder RN Ht: 5 ft 4 in Wt: 146 lbs BSA: 1.71 m2 BMI: 25.05 Medical History Medical History: Chest pain, orthostatic hypotension, altered responsiveness, ABD pain, GI bleed, nausea, Parkinson's Disease, hypothyroidism, Lewy Body Dementia, HLD, Macular Degeneration, back pain, unsteady gait. Medications: Rosuvastatin. Allergies: Morphine, Prednisone, Midodrine, Cefdinir. Cardiac Risk Factors: Age, FHX of CAD, Hyperlipidemia, chest pain, HLD. Previous Cardiac Procedures: None Pretest Chest Pain Characteristics: No chest pain Exercise History: Sedentary Physical Disabilities: Lewy bodys dementia, Parkinson's Disease, weakness, instability. Meds Held (24 hrs): None Resting Data Rest SPECT myocardial perfusion imaging was performed in supine position 30 minutes following the intravenous injection of 11.0 mCi of Tc-99m Sestamibi. Time of rest injection: 1000 The images were gated to evaluate regional wall motion and calculate left ventricular ejection fraction. Administration Route: [place] [address] CARDIAC NUCLEAR IMAGING REPORT Name: ANA CRISTINA MC Room: [address]#: [id number] Admission: 05/15/20 Attend Phys: Matilde Villar Discharge: 05/17/20 Date of : 58 Date of Service: 05/18/20 0902 Report #: [id number] Administration Site: Left Hand Pharmacologic Stress Pharmacologic stress test was performed by injecting Regadenoson 0.4 mg IV push over 10-15 seconds immediately followed by the intravenous injection of 31.9 mCi of Tc-99m Sestamibi. Time of stress injection: 12:00 Administration Route: IV Administration Site: Left Hand Heart Rate at time of stress injection: 94 bpm. Gated Stress SPECT was performed 45 minutes after stress injection. The images were gated to evaluate regional wall motion and calculate left ventricular ejection fraction. Stress Test Details Stress Test: Pharmacologic stress testing performed using 0.4 mg of regadenoson per 5 mL given IV over 10 seconds. Reason for pharmacologic stress test: Lewy bodys dementia, Parkinson's Disease, weakness, instability.. HR Max Heart Rate (APMHR): 160 bpm Resting HR: 69 bpm Target HR (85% APMHR): 136 bpm Max HR Achieved: 120 bpm % of APMHR: 75 Recovery HR: 81 bpm BP Resting BP: 133/83 mmHg Max BP: 142/61 mmHg Recovery BP: 161/75 mmHg ECG Resting ECG: Sinus Rhythm Stress ECG: Sinus Tachycardia ST Change: None Arrhythmia: None Recovery ECG: Sinus Rhythm Recovery ST Change: None Recovery Arrhythmia: None Clinical Reason for Termination: Completed protocol Stress Symptoms: SOA, 8/10 chest pain. Exercise duration: 00 min 00 sec Exercise capacity: 2.30 METs The patient tolerated walking Lexiscan infusion [place] [address] CARDIAC NUCLEAR IMAGING REPORT Name: ANA CRISTINA MC Room: [address]#: [id number] Admission: 05/15/20 Attend Phys: Matilde Villar Discharge: 05/17/20 Date of : 58 Date of Service: 05/18/20 0902 Report #: [id number] cardiac symptoms. Nurse Comments A 59 year old male inpatient presented for a sitting Lexiscan r/t chest pain and altered responsiveness. Test well tolerated. Recovery included brief chest pain 8/10, EKG normal. Patient escorted to Nuclear Medicine for imaging. Patient was stable and stated he felt good at that time. Stress ECG Conclusion The baseline twelve-lead EKG shows sinus rhythm without significant ST segment or T wave abnormality. EKGs obtained during and post walking Lexiscan protocol show sinus rhythm and sinus tachycardia with no significant ST segment or T wave changes when compared to baseline. There were no stress-induced arrhythmias. Study Quality Study: Excellent Artifact: No artifact Study Data At rest, the left ventricular ejection fraction was 74%.. Post stress, the left ventricular ejection was 72%.. TID = 0.92. Perfusion Perfusion images obtained at rest and post walking Lexiscan stress show uniform uptake of the radioisotope throughout the myocardium. There were no defects to suggest infarct or ischemia. Wall Motion Normal left ventricular wall motion. Nuclear Conclusion ECG Findings: negative for ischemia Clinical Findings: negative for ischemia Nuclear Findings: negative for ischemia Exercise Capacity: not assessed Left Ventricular Function: normal Risk Study: low Myocardial perfusion images obtained show no defect to suggest infarct or ischemia. Gated images show normal wall motion. This is a low risk study. <Conclusion> The baseline twelve-lead EKG shows sinus [place] [address] CARDIAC NUCLEAR IMAGING REPORT Name: ANA CRISTINA MC Room: [address]#: [id number] Admission: 05/15/20 Attend Phys: Matilde Villar Discharge: 05/17/20 Date of : 58 Date of Service: 05/18/20 0902 Report #: [id number] segment or T wave abnormality. EKGs obtained during and post walking Lexiscan protocol show sinus rhythm and sinus tachycardia with no significant ST segment or T wave changes when compared to baseline. There were no stress-induced arrhythmias. <ELECTRONICALLY SIGNED> By: Shen Charles MD, FACC 05/18/20901 1 1 Shen Charles MD, FACC /INF
--- NOTE | 2020-05-19 11:11 | CON ---
[address] [address] CONSULTATION Name: ALEXANDROANA CRISTINA Scott Room: [address] IN M.R.#: [id number] Admission: 05/15/20 Attend Phys: Cassandra Tolliver Discharge: 05/17/20 Date of : 58 Report #: [id number] THIS REPORT FOR: cc: Mario Fall MD, Dean L. MD ~ Gayle Burks MD DATE OF SERVICE: 05/14/2020 REASON FOR CONSULT: Melanotic stool, history of gastroesophageal reflux disease and hiatal hernia and noncardiac chest pain. HISTORY OF PRESENT ILLNESS: This is a 59-year-old male with history of gastroesophageal reflux disease, who has had upper and lower endoscopy by my partner, Dr. Richardson in 2011. The patient at that time had a hiatal hernia and evidence of reflux disease. He has been taking Aciphex, which he believes that is not working for him. He has also been taking Tums without much relief. He reports that for the past few days, he was having heartburn and chest discomfort and when he noted that he has dark loose bloody stool he presented to hospital. PAST MEDICAL HISTORY: Significant for history of gastroesophageal reflux disease, hyperlipidemia, hypothyroidism, Parkinson disease, Lewy body dementia, macular degeneration, migraine headaches, major depressive disorder, history of PE. ALLERGIES: SIGNIFICANT TO PREDNISONE, OMNICEF, MORPHINE AND MIDODRINE. MEDICATIONS: Please refer to AUG. SOCIAL HISTORY: The patient has dementia. He denies ever history of tobacco use, but used to drink alcohol occasionally. FAMILY HISTORY: Noncontributory. PHYSICAL EXAMINATION: VITAL SIGNS: Reveals normal vitals. LUNGS: Clear. CARDIOVASCULAR: Regular. ABDOMEN: Soft, mildly tender to palpation in the epigastric region. NEUROLOGIC: The patient is alert and oriented x 3. LABORATORY DATA: Reveal sodium of 142, potassium is 3.5, BUN is 11, creatinine is 0.9, glucose 105. Amylase is 38, lipase 92. Total bilirubin 0.2. Liver function tests are all within normal limits. Albumin is 3.3. WBC is 5.3 with hemoglobin of 12.4 and platelet [place] 179. [place] [address] CONSULTATION Name: ANA CRISTINA MC Room: [address]#: [id number] Admission: 05/15/20 Attend Phys: Cassandra Tolliver Discharge: 05/17/20 Date of : 58 Report #: [id number] IMAGING: CT of abdomen and pelvis was obtained today. There is no evidence of any significant abnormality noted in the GI tract. There is some mild sigmoid diverticulosis without any evidence of diverticulitis. ASSESSMENT AND PLAN: The patient with melanotic stool, history of gastroesophageal reflux disease and hiatal hernia, who reports noncardiac chest pain. We will proceed with upper endoscopy to further evaluate his symptoms. We will make further recommendation based on finding. <ELECTRONICALLY SIGNED> By: Gayle Burks MD 05/19/20 1111 1254 1319Gayle Burks MD /nt
--- NOTE | 2020-05-19 15:07 | PATH ---
[address] [address] PATHOLOGY RPT PROCEDURE Name: ANA CRISTINA MC Room: [address] IN M.R.#: [id number] Admission: 05/15/20 Date of : 58 Discharge: 05/17/20 Report #: [id number] Path Case #: [id number] [facility] Accession Number: [id number] . 01 Material submitted: . stomach - GASTRIC BODIES FOR GASTRITIS . 02 Diagnosis: Gastric bodies for gastritis: - Mild nonspecific chronic gastritis and focal, superficial fresh hemorrhage, negative for Helicobacter pylori organisms and dysplasia. (MRACUS:rohit; 05/19/2020) . Special stain: H. pylori immuno QMS 05/19/2020 1035 Local . 02 Electronically signed: . Sin Messina MD, Pathologist NPI- [id number] . 01 Gross description: . The specimen is received in formalin, labeled "Goessel, Ana Cristina, gastric bodies for gastritis" and consists of a fragment of pink-burr tissue measuring 0.5 x 0.3 cm which is entirely submitted in A1. (SDY; 05/18/2020) SYU/SYU 05/18/2020 1630 Local . 02 Pathologist provided ICD-10: K29.50, K92.2 . 02 CPT . 708830, A75567 Specimen Comment: A courtesy copy of this report has been sent to [phone] Specimen Comment: [phone], Specimen Comment: Report sent to ,DR PATE / DR ODOM Performed at: [address], [place] [address] MD Yoni Colon MD Phone: [phone] Performed at: [address] [facility] [address], [place], [place] [address] MD Sin Messina MD Phone: [phone]
--- NOTE | 2020-05-25 14:08 | CON ---
[address] [address] CONSULTATION Name: ANA CRISTINA MC Room: [address] IN M.R.#: [id number] Admission: 05/15/20 Attend Phys: Cassandra Tolliver Discharge: 05/17/20 Date of : 58 Report #: [id number] THIS REPORT FOR: cc: Mario Fall MD, Dean L. MD ~ [place], Roxane S. DO NEUROLOGY CONSULTATION HISTORY OF PRESENT ILLNESS: The patient is a 59-year-old male who the Neurology service was asked to see in consultation after the patient had a witnessed episode yesterday of altered responsiveness. His states that when the physician came in to examine the patient, he was minimally responsive. He would open and close his eyes. He did not move his arms or legs, but it was able to wiggle his toes back and forth. Reviewing the notes for this episode, the patient's vital signs were stable. His blood sugar was 92. The patient has a history of Parkinson's disease diagnosed in 2009 and Lewy body dementia diagnosed in 2011. He is a patient of Dr. Anil Gonzalez at [facility]. His also tells me that the patient has a speech disorder, which he describes as a learning disability. Whenever he is stressed, his speech is becoming more slurred. PAST MEDICAL HISTORY: Parkinson's disease, Lewy body dementia, gastroesophageal reflux, anxiety, depression, hyperlipidemia, hypothyroidism. PAST SURGICAL HISTORY: Surgery to lyse abdominal adhesions. MEDICATIONS: At home, topiramate 200 mg b.i.d., bupropion 300 mg daily, clonazepam 0.5 mg t.i.d. p.r.n. anxiety, donepezil 10 mg daily, Florinef 0.1 mg b.i.d., levothyroxine 25 mcg daily, memantine, mirtazapine 15 mg at bedtime, pantoprazole 40 mg daily, ropinirole 2.5 mg t.i.d., tramadol p.r.n. ALLERGIES: CEFDINIR, PREDNISONE, MORPHINE, MIDODRINE. PHYSICAL EXAMINATION: VITAL SIGNS: Temperature 36.4, pulse rate 56, respiratory rate 16, blood pressure sitting 130/76, blood pressure standing 116/76. NEUROLOGIC: Cranial nerves 2-12 demonstrate mild flattening of the right nasolabial fold. Motor exam demonstrates symmetrical strength in all 4 extremities. He appears to have decreased fine finger movements on the right. He has increased tone with cogwheel rigidity in the left upper extremity. Reflexes are 2/4. Plantar responses are flexor. Coordination reveals intact ojbvmf-ea-busc. No tremor was seen. The patient is able to walk with his walker and since he is in the hospital, he is wearing a gait belt and the nurse is assisting [place] [address] CONSULTATION Name: ANA CRISTINA MC Room: [address]#: [id number] Admission: 05/15/20 Attend Phys: Cassandra Tolliver Discharge: 05/17/20 Date of : 58 Report #: [id number] LABORATORY DATA: Hematology: White blood cell count 5.2, hemoglobin 13.2, hematocrit 38.4, MCV 87, platelet count 204,000. Urinalysis negative. Chemistry: Sodium 143, potassium 3.7, chloride 109, carbon dioxide 23, BUN 7, creatinine 1, GFR 76, glucose 92. Liver functions normal. IMAGING: CTA of the abdomen and pelvis demonstrates no abnormal contrast collection of the bowel to suggest active gastrointestinal hemorrhage. IMPRESSION: The patient had an episode of unresponsiveness. Apparently, his vital signs were stable during that time. It may be difficult to determine the etiology of this episode of unresponsiveness. He is being seen by Cardiology and will have a nuclear stress test tomorrow. I will also order an EEG, but doubt this episode is a seizure. Apparently, he is on a high dose of topiramate for migraine prevention. I would continue his current medications. Dr. Roberts will be seeing the patient as of Sunday morning. <ELECTRONICALLY SIGNED> By: Pooja Parrish DO 05/25/20 1408 1200 1239Pooja Parrish DO /nt
== END 2020-05-17 16:10 | disposition home or self-care (01) | DRG 377 ==
LOC: M.ERS 22:26 → M.2W 05-14 01:37 → M.TBA-ER 05-14 01:37 → M.2W 05-14 02:57
PROVIDERS: Emergency Medicine; ADMIT Internal Medicine; ATTEND Internal Medicine
PROC: 0D738ZZ Dilation of Lower Esophagus, Via Natural or Artificial Opening Endoscopic (ICD-10-PCS; principal; 2020-05-15)
PROC: 0DB68ZX Excision of Stomach, Via Natural or Artificial Opening Endoscopic, Diagnostic (ICD-10-PCS; principal; 2020-05-15)
DX: K29.01 Acute gastritis with bleeding (principal); G93.41 Metabolic encephalopathy; K21.9 Gastro-esophageal reflux disease without esophagitis; M94.0 Chondrocostal junction syndrome [Tietze]; K22.0 Achalasia of cardia; E87.6 Hypokalemia; E83.51 Hypocalcemia; G20 Parkinson's disease; F02.80 Dementia in other diseases classified elsewhere, unspecified severity, without behavioral disturbance, psychotic disturbance, mood disturbance, and anxiety; D64.89 Other specified anemias; I95.1 Orthostatic hypotension; K22.2 Esophageal obstruction; K44.9 Diaphragmatic hernia without obstruction or gangrene; G43.909 Migraine, unspecified, not intractable, without status migrainosus; F32.9 Major depressive disorder, single episode, unspecified; F41.1 Generalized anxiety disorder; E03.9 Hypothyroidism, unspecified; E78.5 Hyperlipidemia, unspecified; Z86.711 Personal history of pulmonary embolism; Z79.899 Other long term (current) drug therapy; Z88.1 Allergy status to other antibiotic agents; Z88.5 Allergy status to narcotic agent; Z88.8 Allergy status to other drugs, medicaments and biological substances; Z20.828 Contact with and (suspected) exposure to other viral communicable diseases

== ENCOUNTER 2021-01-17 11:00 | Emergency (ER) | payer OTHER ==
[~2021-01-17] VITALS: Ht 175.3 cm; Wt 72.6 kg
[~2021-01-17 11:00] MED LIST changes: +PROTONIX40 M4 PO; +TOPAMAX 100 MG100 MG PO
[2021-01-17 11:41] LABS: ABSOLUTE EOSINOPHILS 0.1 thou/uL (0.0-0.7); ABSOLUTE LYMPHOCYTES 1.1 thou/uL (0.8-5.3); ABSOLUTE MONOCYTES 0.4 thou/uL (0.0-1.2); ABSOLUTE NEUTROPHILS 3.1 thou/uL (1.6-8.1); BASOPHILS 0.6 %; EOSINOPHILS 1.2 %; HEMATOCRIT 36.8 % (42.0-52.0); HEMOGLOBIN 11.9 gm/dL (14.0-18.0); LYMPHOCYTES 22.9 %; MCH 27.5 pg (26.0-34.0); MCHC 32.5 g/dL (28.0-37.0); MCV 84.8 fL (80.0-100.0); MONOCYTES 8.9 %; MPV 7.8 fl. (7.2-11.1); NUCLEATED RBCS 0 /100WBC; PLATELET COUNT* 195 thou/uL (150-400); POLYS 66.4 %; RBC 4.33 mil/uL (4.50-6.00); RDW-CV 16.2 % (10.5-14.5); WBC 4.7 thou/uL (4.0-11.0)
[2021-01-17 11:53] LABS: CALCIUM 8.5 mg/dL (8.5-10.1); CREATININE 0.9 mg/dL (0.6-1.3); POTASSIUM 3.5 mmol/L (3.5-5.1)
[2021-01-17 12:16] LABS: ALBUMIN 3.6 g/dL (3.4-5.0); CK-MB MASS 1.1 ng/mL (<0.5-3.6); MAGNESIUM 2.1 mg/dL (1.8-2.4); TOTAL BILIRUBIN 0.3 mg/dL (<0.1-1.0); TOTAL PROTEIN 6.8 g/dL (6.4-8.2)
[2021-01-17] MEDS ORDERED: SEROQUEL 25 MG25 MG PO (12:19)
[2021-01-17] MEDS ORDERED: POTASSIUM20 PO (12:20)
[2021-01-17 14:16] VITALS: BP 105/59
--- NOTE | 2021-01-18 11:22 | EKG ---
[place] [address] ELECTROCARDIOGRAM REPORT Name: ALEXANDROANA CIRSTINA Room: [facility]#: [id number] Admission: 01/17/21 Attend Phys: Discharge: 01/17/21 Date of : 58 Date of Service: 01/17/21 1104 Report #: [id number] THIS REPORT FOR: //name// [facility] ED Test Date: 2021-01-17 Test Time: 11:04:38 Pat Name: ANA CRISTINA MC Department: Room: Gender: Life Skills Trainer: : 1960 Requested By: Wang Villasenor Order Number: [id number] MD: Ray Shay Measurements Intervals [place] Rate: 67 P: 23 TN: 145 QRS: 49 QRSD: 85 T: 47 QT: 420 QTc: 444 Interpretive Statements Sinus rhythm Minimal ST elevation, anterior leads Compared to ECG 05/17/2020 12:18:36 no change Electronically Signed On 01-18-2021 11:22:31 CDT by Ray Shay [email or web address] <ELECTRONICALLY SIGNED> By: Ray hSay MD, [facility] 01/18/21 1122 1104 1104 Ray Shay MD, [facility] /EPI
== END 2021-01-17 14:20 | disposition home or self-care (01) ==
LOC: M.ERS 11:00
PROVIDERS: Family Medicine
DX: R07.89 Other chest pain (principal); G20 Parkinson's disease; G43.909 Migraine, unspecified, not intractable, without status migrainosus; E03.9 Hypothyroidism, unspecified; E78.5 Hyperlipidemia, unspecified; Z86.711 Personal history of pulmonary embolism; Z79.899 Other long term (current) drug therapy; Z88.1 Allergy status to other antibiotic agents; Z88.8 Allergy status to other drugs, medicaments and biological substances

== ENCOUNTER 2021-03-28 12:31 | Emergency (ER) | payer OTHER ==
[~2021-03-28] VITALS: Ht 162.6 cm; Wt 65.3 kg
[~2021-03-28 12:31] MED LIST changes: +SEROQUEL 25 MG25 MG PO
[2021-03-28 13:31] LABS: URINE BILIRUBIN NEGATIVE (Negative); URINE BLOOD NEGATIVE (Negative); URINE CLARITY SL CLOUDY; URINE COLOR YELLOW; URINE GLUCOSE-RANDOM NEGATIVE (Negative); URINE KETONES NEGATIVE (Negative); URINE LEUKOCYTES-REFLEX TRACE (Negative); URINE NITRITE-REFLEX NEGATIVE (Negative); URINE PROTEIN NEGATIVE (Negative); URINE SPECIFIC GRAVITY 1.015 (1.005-1.030); URINE UROBILINOGEN 0.2 E.U./dl (0.2-1.0)
[2021-03-28 13:38] LABS: BACTERIA-REFLEX None Seen /HPF (None Seen); CASTS None Seen /LPF (None Seen); SQUAMOUS NONE SEEN /LPF (0-3); URINE RBC None Seen /HPF (0-2); URINE WBC-REFLEX None Seen /HPF (0-5)
[2021-03-28 13:39] LABS: CRYSTALS None Seen /LPF (None Seen)
[2021-03-28 14:06] LABS: ABSOLUTE LYMPHOCYTES 1.1 thou/uL (0.8-5.3); ABSOLUTE MONOCYTES 0.4 thou/uL (0.0-1.2); ABSOLUTE NEUTROPHILS 3.2 thou/uL (1.6-8.1); BASOPHILS 0.6 %; EOSINOPHILS 0.2 %; HEMATOCRIT 40.3 % (42.0-52.0); HEMOGLOBIN 13.9 gm/dL (14.0-18.0); LYMPHOCYTES 22.1 %; MCH 30.5 pg (26.0-34.0); MCHC 34.5 g/dL (28.0-37.0); MCV 88.5 fL (80.0-100.0); MONOCYTES 9.4 %; MPV 7.7 fl. (7.2-11.1); NUCLEATED RBCS 0 /100WBC; PLATELET COUNT* 174 thou/uL (150-400); POLYS 67.7 %; RBC 4.55 mil/uL (4.50-6.00); RDW-CV 17.1 % (10.5-14.5); WBC 4.8 thou/uL (4.0-11.0)
[2021-03-28 14:14] LABS: CALCIUM 8.7 mg/dL (8.5-10.1); CREATININE 0.9 mg/dL (0.6-1.3); POTASSIUM 3.4 mmol/L (3.5-5.1)
--- NOTE | 2021-03-28 14:15 | EKG ---
[place] [address] ELECTROCARDIOGRAM REPORT Name: ANA CRISTINA MC Room: [facility]#: [id number] Admission: 03/28/21 Attend Phys: Discharge: Date of : 58 Date of Service: 03/28/211411 Report #: [id number] THIS REPORT FOR: //name// [facility] ED Test Date: 2021-03-28 Test Time: 14:12:16 Pat Name: ANA CRISTINA MC Department: Room: Gender: Design Quality Engineer: [facility] : 1960 Requested By: Brennon Gonzalez Order Number: [id number] MD: Ray Shay Measurements Intervals [place] Rate: 70 P: 52 MA: 141 QRS: 65 QRSD: 95 T: 53 QT: 387 QTc: 418 Interpretive Statements Sinus rhythm Compared to ECG 01/17/2021 11:04:38 no change Electronically Signed On 03-28-2021 14:15:24 CDT by Ray Shay [email or web address] <ELECTRONICALLY SIGNED> By: Ray Shay MD, [facility] 03/28/211414 1412 141 Ray Shay MD, FACC /EPI
[2021-03-28 14:18] LABS: ALBUMIN 3.9 g/dL (3.4-5.0); TOTAL BILIRUBIN 0.4 mg/dL (<0.1-1.0); TOTAL PROTEIN 7.5 g/dL (6.4-8.2)
[2021-03-28] MEDS ORDERED: DOXYCYCLINE 10100 M2 PO (17:21)
[2021-03-28] MEDS ORDERED: ZOFRAN ODT4 MG DISSOLVE (17:21)
[2021-03-28 17:29] VITALS: BP 125/72
== END 2021-03-28 17:30 | disposition home or self-care (01) ==
LOC: M.ERS 12:31
PROVIDERS: Emergency Medicine Emergency Medical Services; Nurse Practitioner Family
DX: N39.0 Urinary tract infection, site not specified (principal); R19.7 Diarrhea, unspecified; R11.0 Nausea; G20 Parkinson's disease; G43.909 Migraine, unspecified, not intractable, without status migrainosus; F32.9 Major depressive disorder, single episode, unspecified; E03.9 Hypothyroidism, unspecified; E78.5 Hyperlipidemia, unspecified; Z86.711 Personal history of pulmonary embolism; Z79.899 Other long term (current) drug therapy; Z88.1 Allergy status to other antibiotic agents; Z88.8 Allergy status to other drugs, medicaments and biological substances; Z88.5 Allergy status to narcotic agent

== ENCOUNTER 2021-04-21 10:05 | Observation (INO) | payer OTHER ==
[~2021-04-21] VITALS: Ht 162.6 cm; Wt 68.0 kg
--- NOTE | ~2021-04-21 | CON ---
[address] [address] CONSULTATION Name: ANA CRISTINA MC Room: [address] Ava Flowers#: [id number] Admission: 04/21/21 Attend Phys: Cassandra Tolliver Discharge: 04/22/21 Date of : 58 Report #: [id number] THIS REPORT FOR: cc: Mario Fall MD, Dean L. MD Khosla, Parveen K. MD ~ DATE OF CONSULTATION: 04/22/2021 HISTORY OF PRESENT ILLNESS: This is a 60-year-old male patient who is not a good historian. I talked to Dr. Josue, admitting doctor. I talked to the staff and subsequently called the patient's and talked to her. I reviewed the record. This patient usually goes to [facility] for Lewy body dementia. I have also seen him in the past and referred him back to [facility]. He had numerous MRI and CAT scans in this institution. says that he has spells some time, where he becomes disoriented, less responsive and this is going on for several years. When I asked her if has done some workup, she said they did it initially, but from last 2 years, they have not done any workup because they do not think it will make much difference. This is according to the . She tells me he was admitted with chest pain. He thinks he had a heart attack. When I asked him if he has any trouble with less responsiveness, he says absolutely not. He says that is not his problem and in fact, he refused to cooperate after that. REVIEW OF SYSTEMS: A 14-point review of system was carried out and apparently, he has a diagnosis of Lewy body dementia made at [facility]. He had falls in the past. He had some epigastric pain in the past. He had some headache in the past. He had some orthostatic hypotension in the past, but he denies any of this for the time being. This was a relevant 14-point review of system. PAST MEDICAL HISTORY: Positive for Lewy body dementia. FAMILY HISTORY: Unremarkable. SOCIAL HISTORY: He apparently is in the rehab, but apparently he is supposed to go home after that. PHYSICAL EXAMINATION: His examination is pretty difficult. He is not very cooperative. He wants to go home, but when I asked him what month it is, he told me, but then refused to cooperate after that. I pushed him to do the cranial nerve examination and neuromuscular examination and he did that and it looked pretty symmetrical to me. By the time we reached the cerebellar function, he would not cooperate, he just says he wants to go home. I could not look at the patient's fundus. Cardiac examination appears unremarkable. Blood pressure was 127/68, respiration was 20, pulse is 61, temperature is 98.1. [place] [address] CONSULTATION Name: ANA CRISTINA MC Room: [address] Ava Flowers#: [id number] Admission: 04/21/21 Attend Phys: Cassandra Tolliver Discharge: 04/22/21 Date of : 58 Report #: [id number] IMPRESSION: This patient did not cooperate because he was pretty adamant that he wants to go home. I think he understands the things in spite of his diagnosis of Parkinson dementia and I explained that to him, but he kept saying that he wants to go home. I called his and she says that he already had too many CT scans. I asked her to talk to him and see if he agrees to get workup done. After talking to this patient multiple times, he said he will have a CAT scan done, which was unremarkable, but then he kept insisting that he is going home and I have explained the situation to the patient's as well as the patient and told them that if he ever change his mind and wants to have further testing done, he can contact his neurologist or us. I spent more than 50 minutes of time going to and fro on this patient and counseling and coordinating this. By: 15 25Dread Roberts MD /nt
[~2021-04-21 10:05] MED LIST changes: +DOXYCYCLINE 10100 M2 PO; +ZOFRAN ODT4 MG DISSOLVE
[2021-04-21 10:08] VITALS: BP 130/67
[2021-04-21] MEDS ORDERED: CLONAZEPAM 0.50.5 M1 PO (10:11)
[2021-04-21] MEDS ORDERED: ACIDOPHILUS1 EAC3 PO (10:12)
[2021-04-21] MEDS ORDERED: DICYCLOMINE HCL20 MG PO (10:13)
[2021-04-21] MEDS ORDERED: ELIQUIS5 MG PO (10:14)
[2021-04-21] MEDS ORDERED: CARAFATE1 GM PO (10:15)
[2021-04-21] MEDS ORDERED: TRAMADOL 50 MG50 MG PO (10:16)
[2021-04-21 10:35] LABS: ABSOLUTE EOSINOPHILS 0.1 thou/uL (0.0-0.7); ABSOLUTE LYMPHOCYTES 1.3 thou/uL (0.8-5.3); ABSOLUTE MONOCYTES 0.6 thou/uL (0.0-1.2); ABSOLUTE NEUTROPHILS 4.6 thou/uL (1.6-8.1); BASOPHILS 0.2 %; EOSINOPHILS 0.8 %; HEMATOCRIT 37.3 % (42.0-52.0); HEMOGLOBIN 12.7 gm/dL (14.0-18.0); LYMPHOCYTES 19.3 %; MCH 29.9 pg (26.0-34.0); MONOCYTES 8.5 %; NUCLEATED RBCS 0 /100WBC; PLATELET COUNT* 179 thou/uL (150-400); POLYS 71.2 %; RBC 4.24 mil/uL (4.50-6.00); RDW-CV 16.6 % (10.5-14.5); WBC 6.5 thou/uL (4.0-11.0)
[2021-04-21 10:41] LABS: CALCIUM 7.9 mg/dL (8.5-10.1); CREATININE 0.9 mg/dL (0.6-1.3)
[2021-04-21 10:51] LABS: ALBUMIN 3.5 g/dL (3.4-5.0); MAGNESIUM 2.2 mg/dL (1.8-2.4); TOTAL BILIRUBIN 0.2 mg/dL (<0.1-1.0)
[2021-04-21 10:57] LABS: POTASSIUM 2.8 mmol/L (3.5-5.1)
--- NOTE | 2021-04-21 11:20 | EKG ---
[place] [address] ELECTROCARDIOGRAM REPORT Name: ANA CRISTINA MC Room: [facility]#: [id number] Admission: 04/21/21 Attend Phys: Discharge: Date of : 58 Date of Service: 04/21/21 1007 Report #: [id number] THIS REPORT FOR: //name// [facility] ED Test Date: 2021-04-21 Test Time: 10:07:47 Pat Name: ANA CRISTINA MC Department: Room: Gender: Correction Officer Head: : 1960 Requested By: Brennon Gonzalez Order Number: [id number] MD: Ray Shay Measurements Intervals [place] Rate: 73 P: 27 HI: 156 QRS: 49 QRSD: 101 T: 39 QT: 386 QTc: 426 Interpretive Statements Sinus rhythm Compared to ECG 03/28/2021 14:12:16 No significant changes Electronically Signed On 04-21-2021 11:19:53 MECHANIC WELDER by Ray Shay [email or web address] <ELECTRONICALLY SIGNED> By: Ray Shay MD, [facility] 04/21/21 1119 1007 1007 Ray Shay MD, FACC /EPI
--- NOTE | 2021-04-21 13:07 | NUR ---
POTASSIUM WAS SLOWED DOWN DUE TO INTOLERANCE BY PT.
[2021-04-21 15:34] VITALS: BP 126/60
[2021-04-21 16:00] VITALS: BP 139/74
[2021-04-21 18:01] LABS: CALCIUM 8.2 mg/dL (8.5-10.1); CREATININE 0.7 mg/dL (0.6-1.3); MAGNESIUM 2.3 mg/dL (1.8-2.4)
[2021-04-21 18:42] LABS: URINE BILIRUBIN NEGATIVE (Negative); URINE BLOOD TRACE (Negative); URINE CLARITY CLEAR; URINE COLOR YELLOW; URINE GLUCOSE-RANDOM NEGATIVE (Negative); URINE KETONES NEGATIVE (Negative); URINE LEUKOCYTES NEGATIVE (Negative); URINE NITRITE NEGATIVE (Negative); URINE PROTEIN NEGATIVE (Negative); URINE UROBILINOGEN 0.2 E.U./dl (0.2-1.0)
[2021-04-21 20:00] VITALS: BP 121/61
[2021-04-22 03:11] VITALS: BP 116/62
[2021-04-22 06:21] VITALS: BP 100/57
[2021-04-22 08:00] VITALS: BP 121/70
[2021-04-22 12:00] VITALS: BP 105/57
--- NOTE | 2021-04-22 15:06 | NUR ---
CM ASSESSMENT: PT A&O. PT RESIDES AT HOME WITH [facility] AND [facility] AND THEY ASSIST THE PT NEEDED WITH CARES. PT USES A WHEELCHAIR AND WALKER FOR MOBILITY AND TRANSFERS. PT HAS PAST HX OF HH WITH [facility]. PT HAS PAST HX OF SNF AT [facility]. PHYSICIAN INFORMS OF PLAN FOR THIS PT TO D/C HOME TODAY PENDING NEURO RECOMMENDAIONS. CM WILL REMAIN AVAILABLE TO ASSIST AND FOLLOW NEEDED.
[2021-04-22 16:00] VITALS: BP 127/68
[2021-04-22 18:41] VITALS: BP 127/68
--- NOTE | 2021-04-22 18:46 | NUR ---
ASSUMED PT CARE AT 0730, PT AOX4 BUT FORGETFUL AND HAS MOMENTS OF CONFUSION. PT WORKED W/ NEURO AND PSYCH AND HOSPITALIST TODAY AND DC ORDERS RECEIVED. PT PREFERS TO DC BACK TO HOME INSTEAD OF GOING BACK TO REHAB AT [facility]. PT ASKED FOR SCRIPT FOR BLOOD THINNER, NOTE SENT TO DR SHERWOOD AND HE SAID HE WILL SEND SCRIPT WHEN HE GETES HOME. PT'S IV AND HIGH SCHOOL BAND DIRECTOR REMOVED. PT DC'D BY WC W/ NURSING STAFF AND ALL PAPERWORK AND PERSONAL BELONGINGS TO 'S VEHICLE AT APPROX 1847
[2021-04-22] MEDS ORDERED: ELIQUIS5 MG PO (19:42)
== END 2021-04-22 18:47 | disposition home or self-care (01) ==
LOC: M.ERS 10:05 → M.2W 11:37 → M.TBA-ER 11:37 → M.2W 11:37
PROVIDERS: Emergency Medicine Emergency Medical Services; ADMIT Internal Medicine; ATTEND Internal Medicine
DX: I20.8 Other forms of angina pectoris (principal); G93.41 Metabolic encephalopathy; Z20.822 Contact with and (suspected) exposure to COVID-19; F03.90 Unspecified dementia, unspecified severity, without behavioral disturbance, psychotic disturbance, mood disturbance, and anxiety; G20 Parkinson's disease; E87.6 Hypokalemia; I95.9 Hypotension, unspecified; F32.9 Major depressive disorder, single episode, unspecified; E78.5 Hyperlipidemia, unspecified; F41.1 Generalized anxiety disorder; D63.8 Anemia in other chronic diseases classified elsewhere; G13.8 Systemic atrophy primarily affecting central nervous system in other diseases classified elsewhere; Z86.711 Personal history of pulmonary embolism; Z90.49 Acquired absence of other specified parts of digestive tract

== ENCOUNTER 2021-04-24 19:33 | Emergency (ER) | payer OTHER ==
[~2021-04-24] VITALS: Ht 162.6 cm; Wt 64.0 kg
[~2021-04-24 19:33] MED LIST changes: +ACIDOPHILUS1 EAC3 PO; +CARAFATE1 GM PO; +DICYCLOMINE HCL20 MG PO; +ELIQUIS5 MG PO
[2021-04-24 20:35] LABS: ABSOLUTE LYMPHOCYTES 1.5 thou/uL (0.8-5.3); ABSOLUTE MONOCYTES 0.6 thou/uL (0.0-1.2); ABSOLUTE NEUTROPHILS 2.5 thou/uL (1.6-8.1); BASOPHILS 0.5 %; EOSINOPHILS 0.8 %; HEMATOCRIT 38.3 % (42.0-52.0); LYMPHOCYTES 31.1 %; MCH 30.2 pg (26.0-34.0); MCHC 33.9 g/dL (28.0-37.0); MCV 89.1 fL (80.0-100.0); MONOCYTES 13.4 %; MPV 7.6 fl. (7.2-11.1); NUCLEATED RBCS 0 /100WBC; PLATELET COUNT* 194 thou/uL (150-400); POLYS 54.2 %; RDW-CV 16.3 % (10.5-14.5); WBC 4.7 thou/uL (4.0-11.0)
[2021-04-24 20:42] LABS: CALCIUM 8.4 mg/dL (8.5-10.1); CREATININE 0.8 mg/dL (0.6-1.3); POTASSIUM 3.3 mmol/L (3.5-5.1)
[2021-04-24 20:45] LABS: APTT 26.9 Seconds (25.0-31.3); INR 1.1; PROTIME 11.2 Seconds (9.20-11.50)
[2021-04-24 20:54] LABS: ALBUMIN 3.6 g/dL (3.4-5.0); TOTAL BILIRUBIN 0.2 mg/dL (<0.1-1.0); TOTAL PROTEIN 7.1 g/dL (6.4-8.2)
[2021-04-24 22:58] VITALS: BP 132/68
--- NOTE | 2021-04-25 09:13 | EKG ---
[place] [address] ELECTROCARDIOGRAM REPORT Name: ANA CRISTINA MC Room: [facility]#: [id number] Admission: 04/24/21 Attend Phys: Discharge: 04/24/21 Date of : 58 Date of Service: 04/24/211933 Report #: [id number] THIS REPORT FOR: //name// [facility] ED Test Date: 2021-04-24 Test Time: 19:34:00 Pat Name: ANA CRISTINA MC Department: Room: Gender: University Relations Recruiter: : 1960 Requested By: Marilynn Mercer Order Number: [id number] MD: Ray Shay Measurements Intervals [place] Rate: 68 P: 48 DC: 157 QRS: 47 QRSD: 91 T: 47 QT: 385 QTc: 410 Interpretive Statements Sinus rhythm Baseline wander in lead(s) I,III,aVL Compared to ECG 04/21/2021 10:07:47 No significant changes Electronically Signed On 04-25-2021 9:13:11 DAY CARE DIRECTOR by Ray Shay [email or web address] <ELECTRONICALLY SIGNED> By: Ray Shay MD, FACC 04/25/21 0913 33 33 Ray Shay MD, FAC /EPI
== END 2021-04-24 20:38 | disposition home or self-care (01) ==
LOC: M.ERS 19:33
PROVIDERS: Personal Emergency Response Attendant
DX: R07.89 Other chest pain (principal); Z20.822 Contact with and (suspected) exposure to COVID-19; R41.82 Altered mental status, unspecified; G31.83 Neurocognitive disorder with Lewy bodies; F02.80 Dementia in other diseases classified elsewhere, unspecified severity, without behavioral disturbance, psychotic disturbance, mood disturbance, and anxiety; G43.909 Migraine, unspecified, not intractable, without status migrainosus; F32.9 Major depressive disorder, single episode, unspecified; E03.9 Hypothyroidism, unspecified; E78.5 Hyperlipidemia, unspecified; Z79.899 Other long term (current) drug therapy; Z88.1 Allergy status to other antibiotic agents; Z86.711 Personal history of pulmonary embolism; Z88.8 Allergy status to other drugs, medicaments and biological substances; Z88.5 Allergy status to narcotic agent

== ENCOUNTER → 2021-06-01 | Outpatient (CLI) | payer OTHER ==
[~2021-06-01] MED LIST changes: +LIDODERM1 EACH TOP
== END ==
LOC: M.PC 08:47
PROVIDERS: ATTEND Physical Medicine & Rehabilitation
DX: R07.89 Other chest pain (principal); I10 Essential (primary) hypertension; E78.5 Hyperlipidemia, unspecified

== ENCOUNTER → 2021-06-10 | Outpatient (CLI) | payer OTHER | LOC: M.RAD 06-01 11:43 → M.NUC 09:45 | PROVIDERS: ATTEND Physical Medicine & Rehabilitation | DX: M19.011 Primary osteoarthritis, right shoulder (principal); M19.012 Primary osteoarthritis, left shoulder; M16.0 Bilateral primary osteoarthritis of hip; R07.89 Other chest pain ==

== ENCOUNTER 2021-07-01 21:42 | Emergency (ER) | payer OTHER ==
[~2021-07-01] VITALS: Ht 162.6 cm; Wt 60.5 kg
[2021-07-01 22:15] LABS: ABSOLUTE EOSINOPHILS 0.1 thou/uL (0.0-0.7); ABSOLUTE LYMPHOCYTES 1.7 thou/uL (0.8-5.3); ABSOLUTE MONOCYTES 0.4 thou/uL (0.0-1.2); ABSOLUTE NEUTROPHILS 3.4 thou/uL (1.6-8.1); BASOPHILS 0.8 %; HEMATOCRIT 35.9 % (42.0-52.0); HEMOGLOBIN 12.4 gm/dL (14.0-18.0); LYMPHOCYTES 30.8 %; MCH 30.6 pg (26.0-34.0); MCHC 34.4 g/dL (28.0-37.0); MCV 88.9 fL (80.0-100.0); MONOCYTES 7.5 %; MPV 6.9 fl. (7.2-11.1); NUCLEATED RBCS 0 /100WBC; PLATELET COUNT* 306 thou/uL (150-400); POLYS 59.9 %; RBC 4.03 mil/uL (4.50-6.00); RDW-CV 14.2 % (10.5-14.5); WBC 5.6 thou/uL (4.0-11.0)
[2021-07-01 22:24] LABS: CALCIUM 8.4 mg/dL (8.5-10.1); CREATININE 0.8 mg/dL (0.6-1.3)
[2021-07-01 22:35] LABS: ALBUMIN 3.4 g/dL (3.4-5.0); MAGNESIUM 2.1 mg/dL (1.8-2.4); TOTAL BILIRUBIN 0.2 mg/dL (<0.1-1.0); TOTAL PROTEIN 6.8 g/dL (6.4-8.2)
[2021-07-02 01:24] LABS: URINE BILIRUBIN NEGATIVE (Negative); URINE BLOOD NEGATIVE (Negative); URINE CLARITY CLEAR; URINE COLOR YELLOW; URINE GLUCOSE-RANDOM NEGATIVE (Negative); URINE KETONES NEGATIVE (Negative); URINE LEUKOCYTES-REFLEX NEGATIVE (Negative); URINE NITRITE-REFLEX NEGATIVE (Negative); URINE PROTEIN TRACE (Negative); URINE SPECIFIC GRAVITY 1.015 (1.005-1.030); URINE UROBILINOGEN 0.2 E.U./dl (0.2-1.0)
[2021-07-02] MEDS ORDERED: BUSPIRONE HCL10 MG PO (09:36)
[2021-07-02] MEDS ORDERED: ARICEPT10 M1 PO (09:37)
[2021-07-02] MEDS ORDERED: MIRTAZAPINE7.5 MG PO (09:38)
[2021-07-02] MEDS ORDERED: CEFUROXIME500 MG PO (09:39)
[2021-07-02] MEDS ORDERED: ELIQUIS5 MG PO (09:41)
[2021-07-02] MEDS ORDERED: FLORINEF ACETA0.1 MG PO (09:42)
[2021-07-02] MEDS ORDERED: FLUDROCORTISON0.1 MG PO (09:43)
[2021-07-02] MEDS ORDERED: PAROXETINE HCL20 MG PO (09:44)
[2021-07-02] MEDS ORDERED: POTASSIUM CHLO20 ME2 PO (09:45)
[2021-07-02 15:25] LABS: CALCIUM 8.6 mg/dL (8.5-10.1); CREATININE 0.7 mg/dL (0.6-1.3)
[2021-07-02 15:29] LABS: POTASSIUM 4.1 mmol/L (3.5-5.1)
[2021-07-03 10:33] VITALS: BP 140/87
--- NOTE | 2021-07-03 13:13 | EKG ---
[place] [address] ELECTROCARDIOGRAM REPORT Name: NAA CRISTINA MC Room: [facility]#: [id number] Admission: 07/01/21 Attend Phys: Discharge: 07/03/21 Date of : 58 Date of Service: 07/01/212217 Report #: [id number] THIS REPORT FOR: //name// [facility] ED Test Date: 2021-07-01 Test Time: 22:18:41 Pat Name: ANA CRISTINA MC Department: Room: Gender: Admitting Interviewer: [place] : 1960 Requested By: Mary Beth Byrd Order Number: [id number] MD: Shen Charles Measurements Intervals [place] Rate: 83 P: 21 PA: 158 QRS: 52 QRSD: 112 T: 41 QT: 380 QTc: 447 Interpretive Statements Sinus rhythm Borderline intraventricular conduction delay Compared to ECG 04/24/2021 19:34:00 No significant changes Electronically Signed On 07-03-2021 13:12:52 EVP OF PRODUCTS & CO FOUNDER by Shen Charles [email or web address] <ELECTRONICALLY SIGNED> By: Shen Charles MD, [facility] 07/03/21 1312 17 17 Shen Charles MD, [facility] /EPI
--- NOTE | 2021-07-03 13:15 | EKG ---
[place] [address] ELECTROCARDIOGRAM REPORT Name: ANA CRISTINA MC Room: [facility]#: [id number] Admission: 07/01/21 Attend Phys: Discharge: 07/03/21 Date of : 58 Date of Service: 07/03/21 0020 Report #: [id number] THIS REPORT FOR: //name// [facility] ED Test Date: 2021-07-03 Test Time: 00:20:01 Pat Name: ANA CRISTINA MC Department: Room: Gender: Product Marketing Programs Manager: : 1960 Requested By: Mary Beth Byrd Order Number: [id number] MD: Shen Charles Measurements Intervals [place] Rate: 83 P: 39 DE: 156 QRS: 58 QRSD: 100 T: 50 QT: 394 QTc: 463 Interpretive Statements Sinus rhythm Compared to ECG 07/01/2021 22:18:41 No significant changes Electronically Signed On 07-03-2021 13:15:43 CASH MANAGER by Shen Charles [email or web address] <ELECTRONICALLY SIGNED> By: Shen Charles MD, [facility] 07/03/21 1315 002 Shen Charles MD, FAC /EPI
== END 2021-07-03 10:33 | disposition home or self-care (01) ==
LOC: M.ERS 21:42
PROVIDERS: Emergency Medicine; Emergency Medicine Emergency Medical Services
DX: R45.4 Irritability and anger (principal); Z20.822 Contact with and (suspected) exposure to COVID-19; F02.80 Dementia in other diseases classified elsewhere, unspecified severity, without behavioral disturbance, psychotic disturbance, mood disturbance, and anxiety; Z79.51 Long term (current) use of inhaled steroids; Z79.899 Other long term (current) drug therapy; Z88.1 Allergy status to other antibiotic agents; Z88.5 Allergy status to narcotic agent; Z88.8 Allergy status to other drugs, medicaments and biological substances

== ENCOUNTER 2021-07-04 21:18 | Emergency (ER) | payer OTHER ==
[~2021-07-04] VITALS: Ht 162.6 cm; Wt 59.0 kg
[~2021-07-04 21:18] MED LIST changes: +BUSPIRONE HCL10 MG PO; +CEFUROXIME500 MG PO; +MIRTAZAPINE7.5 MG PO; +PAROXETINE HCL20 MG PO; +POTASSIUM CHLO20 ME2 PO
[2021-07-04 23:18] LABS: ABSOLUTE MONOCYTES 0.6 thou/uL (0.0-1.2); ABSOLUTE NEUTROPHILS 2.8 thou/uL (1.6-8.1); BASOPHILS 0.7 %; EOSINOPHILS 0.7 %; HEMATOCRIT 39.9 % (42.0-52.0); HEMOGLOBIN 13.4 gm/dL (14.0-18.0); LYMPHOCYTES 37.1 %; MCH 30.6 pg (26.0-34.0); MCHC 33.5 g/dL (28.0-37.0); MCV 91.2 fL (80.0-100.0); MONOCYTES 10.5 %; NUCLEATED RBCS 0 /100WBC; PLATELET COUNT* 305 thou/uL (150-400); RBC 4.38 mil/uL (4.50-6.00); RDW-CV 14.1 % (10.5-14.5); WBC 5.4 thou/uL (4.0-11.0)
[2021-07-04 23:32] LABS: CALCIUM 8.5 mg/dL (8.5-10.1); CREATININE 0.6 mg/dL (0.6-1.3); POTASSIUM 3.5 mmol/L (3.5-5.1)
[2021-07-04 23:37] LABS: ALBUMIN 3.8 g/dL (3.4-5.0); TOTAL BILIRUBIN 0.2 mg/dL (<0.1-1.0); TOTAL PROTEIN 7.3 g/dL (6.4-8.2)
[2021-07-05] MEDS ORDERED: ZOFRAN ODT4 MG PO (02:23)
[2021-07-05 02:54] VITALS: BP 136/78
--- NOTE | 2021-07-05 08:36 | EKG ---
[place] [address] ELECTROCARDIOGRAM REPORT Name: ANA CRISTINA MC Room: [facility]#: [id number] Admission: 07/04/21 Attend Phys: Discharge: 07/05/21 Date of : 58 Date of Service: 07/04/212122 Report #: [id number] THIS REPORT FOR: //name// [facility] ED Test Date: 2021-07-04 Test Time: 21:23:22 Pat Name: ANA CRISTINA MC Department: Room: Gender: Feed Project Engineer: [place] : 1960 Requested By: Mary Beth Byrd Order Number: [id number] MD: Shen Charles Measurements Intervals [place] Rate: 77 P: 63 GA: 148 QRS: 73 QRSD: 92 T: 53 QT: 379 QTc: 429 Interpretive Statements Sinus rhythm Compared to ECG 07/03/2021 00:20:01 No significant changes Electronically Signed On 07-05-2021 8:36:20 FRUIT GRADER by Shen Charles [email or web address] <ELECTRONICALLY SIGNED> By: Shen Charles MD, [facility] 07/05/21835 22 22 Shen Charles MD, FACC /EPI
== END 2021-07-05 02:54 | disposition home or self-care (01) ==
LOC: M.ERS 21:18
PROVIDERS: Emergency Medicine
DX: R07.89 Other chest pain (principal); Z20.822 Contact with and (suspected) exposure to COVID-19; R06.02 Shortness of breath; R11.2 Nausea with vomiting, unspecified; F03.90 Unspecified dementia, unspecified severity, without behavioral disturbance, psychotic disturbance, mood disturbance, and anxiety; Z79.899 Other long term (current) drug therapy; Z88.1 Allergy status to other antibiotic agents; Z88.5 Allergy status to narcotic agent; Z88.8 Allergy status to other drugs, medicaments and biological substances

== ENCOUNTER 2021-07-27 18:45 | Emergency (ER) | payer OTHER ==
[~2021-07-27] VITALS: Ht 162.6 cm; Wt 59.0 kg
[2021-07-27 19:41] LABS: ABSOLUTE LYMPHOCYTES 1.9 thou/uL (0.8-5.3); ABSOLUTE MONOCYTES 0.6 thou/uL (0.0-1.2); ABSOLUTE NEUTROPHILS 4.7 thou/uL (1.6-8.1); BASOPHILS 0.5 %; EOSINOPHILS 0.1 %; HEMATOCRIT 39.4 % (42.0-52.0); HEMOGLOBIN 13.4 gm/dL (14.0-18.0); LYMPHOCYTES 26.7 %; MCH 30.5 pg (26.0-34.0); MCHC 33.9 g/dL (28.0-37.0); MCV 90.1 fL (80.0-100.0); MONOCYTES 7.7 %; MPV 7.4 fl. (7.2-11.1); NUCLEATED RBCS 0 /100WBC; PLATELET COUNT* 200 thou/uL (150-400); RBC 4.37 mil/uL (4.50-6.00); RDW-CV 14.1 % (10.5-14.5); WBC 7.2 thou/uL (4.0-11.0)
[2021-07-27 19:44] LABS: URINE BILIRUBIN NEGATIVE (Negative); URINE BLOOD NEGATIVE (Negative); URINE CLARITY CLEAR; URINE COLOR YELLOW; URINE GLUCOSE-RANDOM NEGATIVE (Negative); URINE KETONES NEGATIVE (Negative); URINE LEUKOCYTES 1+ (Negative); URINE NITRITE NEGATIVE (Negative); URINE PROTEIN NEGATIVE (Negative); URINE SPECIFIC GRAVITY <= 1.005 (1.005-1.030); URINE UROBILINOGEN 0.2 E.U./dl (0.2-1.0)
[2021-07-27 20:00] LABS: MUCUS None Seen strn/LPF (None Seen); SQUAMOUS 0-3 Few /LPF (0-3)
[2021-07-27 20:01] LABS: BACTERIA None Seen /HPF (None Seen); CASTS None Seen /LPF (None Seen); CRYSTALS None Seen /LPF (None Seen)
[2021-07-27 20:02] LABS: URINE RBC None Seen /HPF (0-2); URINE WBC 0-5 Rare /HPF (0-5)
[2021-07-27 20:09] LABS: CALCIUM 8.3 mg/dL (8.5-10.1); CREATININE 0.9 mg/dL (0.6-1.3); POTASSIUM 3.1 mmol/L (3.5-5.1)
[2021-07-27 20:13] LABS: ALBUMIN 3.9 g/dL (3.4-5.0); TOTAL BILIRUBIN 0.2 mg/dL (<0.1-1.0); TOTAL PROTEIN 7.2 g/dL (6.4-8.2)
[2021-07-27 21:31] VITALS: BP 139/83
--- NOTE | 2021-07-28 12:45 | EKG ---
[place] [address] ELECTROCARDIOGRAM REPORT Name: ANA CRISTINA MC Room: [facility]#: [id number] Admission: 07/27/21 Attend Phys: Discharge: 07/27/21 Date of : 58 Date of Service: 07/27/21 190 Report #: [id number] THIS REPORT FOR: //name// [facility] ED Test Date: 2021-07-27 Test Time: 19:07:58 Pat Name: ANA CRISTINA MC Department: Room: Gender: Retail Experience Specialist: [facility] : 1960 Requested By: Eligio Vyas Order Number: [id number] : Pankaj Grissom Measurements Intervals [place] Rate: 82 P: 49 [place]: 148 QRS: 46 QRSD: 86 T: 45 QT: 371 QTc: 434 Interpretive Statements Sinus rhythm Compared to ECG 07/04/2021 21:23:22 No significant changes Electronically Signed On 07-28-2021 12:45:48 STOVE BOTTOM WORKER by Pankaj Grissom [email or web address] <ELECTRONICALLY SIGNED> By: Pankaj Grissom MD, [facility] 07/28/21 1245 190 06 Pankaj Grissom MD, [facility] /EPI
== END 2021-07-27 21:28 | disposition home or self-care (01) ==
LOC: M.ERS 18:45
PROVIDERS: Physician Assistant
DX: R07.89 Other chest pain (principal); R07.81 Pleurodynia; R11.2 Nausea with vomiting, unspecified; G31.83 Neurocognitive disorder with Lewy bodies; F02.80 Dementia in other diseases classified elsewhere, unspecified severity, without behavioral disturbance, psychotic disturbance, mood disturbance, and anxiety; Z79.899 Other long term (current) drug therapy; Z88.1 Allergy status to other antibiotic agents; Z88.8 Allergy status to other drugs, medicaments and biological substances; Z88.5 Allergy status to narcotic agent